=== PATIENT | male | born 1970 | race Caucasian/White ===

== ENCOUNTER 2018-03-20 00:26 | Emergency (ER) | payer SELFPAY ==
[~2018-03-20] VITALS: Ht 177.8 cm; Wt 117.9 kg
[2018-03-20 00:56] LABS: BASO # 0.1 x10^3/uL (0.0-0.2); BASO % 1 % (0-3); EOS # 0.2 x10^3/uL (0.0-0.7); EOS % 1 % (0-3); HEMATOCRIT 44.5 % (39.0-53.0); HEMOGLOBIN 15.4 g/dL (13.0-17.5); LYMPH # 2.5 x10^3/uL (1.0-4.8); LYMPH % 21 % (24-48); MEAN CORPUSCULAR HEMOGLOBIN 30 pg (25-35); MEAN CORPUSCULAR HGB CONC 35 g/dL (31-37); MEAN CORPUSCULAR VOLUME 88 fL (79-100); MONO # 1.3 x10^3/uL (0.0-1.1); MONO % 12 % (0-9); NEUT # 7.5 x10^3uL (1.8-7.7); NEUT % 65 % (31-73); PLATELET COUNT 245 x10^3/uL (140-400); RED BLOOD COUNT 5.09 x10^6/uL (4.30-5.70); RED CELL DISTRIBUTION WIDTH 13.5 % (11.5-14.5); WHITE BLOOD COUNT 11.6 x10^3/uL (4.0-11.0)
--- NOTE | 2018-03-20 01:10 | PHYS DOC ---
Past Medical History Past Medical History: High Cholesterol, Hypertension Past Surgical History: No Surgical History Alcohol Use: None Drug Use: None Adult General Chief Complaint Chief Complaint: CHEST PAIN HPI HPI Patient is a 48 year old male who presents with chest pain. Patient took a Viagra at 11:00 yesterday morning. He states he broke the pill in half and swallowed it. He has used this medication in the past but never had any problems. About 45 minutes after taking the medicine, he began to feel anxious and did have some palpitations. He had some chest pain which she describes to be a heaviness. His symptoms did last until bedtime so he decided to come to the ER. He also complains of a diffuse generalized headache that started about the same time. No focal neuro complaints. No current chest pain. He also describes a prior history of anxiety for which he was previously treated with Valium. He relates that his current symptoms are also consistent with prior episodes of anxiety. He does have known diagnosis of high blood pressure and has been prescribed hydrochlorothiazide in the past but is not currently taking this medication as he states he cannot afford it. Review of Systems Review of Systems Constitutional: Denies fever or chills Eyes: Denies change in visual acuity HENT: Denies nasal congestion or sore throat Respiratory: Denies cough or shortness of breath Cardiovascular: No additional information not addressed in HPI GI: Denies abdominal pain, nausea : Denies dysuria or hematuria Musculoskeletal: Denies back pain Integument: Denies rash Neurologic: Denies focal neuro complaints Endocrine: Denies polyuria All other systems were reviewed and found to be within normal limits, except as documented in this note. Current Medications Current Medications Current Medications Medications (Trade) Dose Ordered Sig/Hector Start Time Stop Time Status Last Admin Dose Admin Aspirin (Children'S Aspirin) 324 mg 1X ONCE 03/20/18 01:15 03/20/18 01:16 DC 03/20/18 01:49 324 MG Fentanyl Citrate (Fentanyl 2ml Vial) 50 mcg 1X ONCE 03/20/18 01:15 03/20/18 01:16 DC 03/20/18 01:50 50 MCG Lorazepam (Ativan) 0.5 mg 1X ONCE 03/20/18 01:15 03/20/18 01:16 DC 03/20/18 01:49 0.5 MG Allergies Allergies Allergies Coded Allergies Type Severity Reaction Last Updated Verified No Known Drug Allergies 12/1/13 No Physical Exam Physical Exam Constitutional: Well developed, well nourished, no acute distress, non-toxic appearance HENT: Normocephalic, atraumatic, bilateral external ears normal, oropharynx moist Eyes: PERRLA, EOMI, conjunctiva normal Neck: Normal range of motion, no tenderness Cardiovascular:Heart rate regular rhythm, no murmur Lungs & Thorax: Bilateral breath sounds clear to auscultation Abdomen: Bowel sounds normal, soft, no tenderness Skin: Warm, dry, no erythema, no rash Extremities: No edema Neurologic: Alert and oriented X 3 Psychologic: Affect normal Current Patient Data Vital Signs Vital Signs Date Time Temp Pulse Resp B/P (MAP) Pulse Ox O2 Delivery O2 Flow Rate FiO2 03/20/18 00:30 96.8 86 20 177/93 (121) 98 Room Air 96.8 Lab Values Laboratory Tests Test 03/20/18 00:41 03/20/18 00:45 White Blood Count 11.6 x10^3/uL (4.0-11.0) H Red Blood Count 5.09 x10^6/uL (4.30-5.70) Hemoglobin 15.4 g/dL (13.0-17.5) Hematocrit 44.5 % (39.0-53.0) Mean Corpuscular Volume 88 fL (79-100) Mean Corpuscular Hemoglobin 30 pg (25-35) Mean Corpuscular Hemoglobin Concent 35 g/dL (31-37) Red Cell Distribution Width 13.5 % (11.5-14.5) Platelet Count 245 x10^3/uL (140-400) Neutrophils (%) (Auto) 65 % (31-73) Lymphocytes (%) (Auto) 21 % (24-48) L Monocytes (%) (Auto) 12 % (0-9) H Eosinophils (%) (Auto) 1 % (0-3) Basophils (%) (Auto) 1 % (0-3) Neutrophils # (Auto) 7.5 x10^3uL (1.8-7.7) Lymphocytes # (Auto) 2.5 x10^3/uL (1.0-4.8) Monocytes # (Auto) 1.3 x10^3/uL (0.0-1.1) H Eosinophils # (Auto) 0.2 x10^3/uL (0.0-0.7) Basophils # (Auto) 0.1 x10^3/uL (0.0-0.2) Prothrombin Time 12.8 SEC (11.7-14.0) Prothrombin Time INR 1.0 (0.8-1.1) PTT 28 SEC (24-38) D-Dimer (Madelin) ug/mlFEU (0.00-0.50) Sodium Level 142 mmol/L (136-145) Potassium Level 4.1 mmol/L (3.5-5.1) Chloride Level 105 mmol/L (98-107) Carbon Dioxide Level 31 mmol/L (21-32) Anion Gap 6 (6-14) Blood Urea Nitrogen 11 mg/dL (8-26) Creatinine 0.9 mg/dL (0.7-1.3) Estimated GFR (Cockcroft-Gault) 89.3 Glucose Level 80 mg/dL (70-99) Calcium Level 8.6 mg/dL (8.5-10.1) Troponin I Quantitative < 0.017 ng/mL (0.000-0.055) CM-Nyx-J-Type Natriuretic Peptide 61 pg/mL (0-124) Laboratory Tests 03/20/18 00:41 Laboratory Tests 03/20/18 00:45 EKG EKG No STEMI Interpretation Time: 00:40 Radiology/Procedures Radiology/Procedures No acute findings on PCXR Course & Med Decision Making Course & Med Decision Making Pertinent Labs and Imaging studies reviewed. (See chart for details) Patient is seen and examined. No current chest pain. Standard chest pain workup is ordered. We'll give medication for headache and anxiety. 02:40: Patient currently resting quietly with complete relief of headache symptoms. He did not have chest pain during the ED course. He was given 0.5 mg of Ativan as well as a small dose of fentanyl which relieved his symptoms. He had a normal neurologic examination. Patient has no red flags on his history of present illness or physical exam. He had been having chest pain for over 12 hours prior to presentation. His troponin is not elevated. His EKG is nonacute. Plan is for discharge home. The patient is agreeable. He is provided a refill of his normal blood pressure medication prior to discharge. He is encouraged to follow-up with a primary care doctor or come back to the ER. Rakan Disclaimer Rakan Disclaimer This electronic medical record was generated, in whole or in part, using a voice recognition dictation system. Departure Departure Referrals: NO PCP (PCP) Scripts Hydrochlorothiazide (HYDROCHLOROTHIAZIDE TABLET ) 25 Mg Tablet 1 TAB PO DAILY, #30 TAB 3 Refills Prov: CONRADO WARE DO 03/20/18 Aspirin (ASPIRIN) 325 Mg Tablet 1 TAB PO TID PRN for HEADACHE, #21 TAB 0 Refills Prov: CONRADO WARE DO 03/20/18 CONRADO WARE DO Mar 20, 2018 01:10
[2018-03-20 01:11] LABS: PROTHROMBIN TIME PATIENT 12.8 SEC (11.7-14.0)
[2018-03-20] MEDS ORDERED: ASPIRIN CHEWABLE 81 MG TABLET. PO ONE (01:15)
[2018-03-20] MEDS ORDERED: fentaNYL PF VIAL 100 MCG/2 ML VIAL IV ONE (01:15)
[2018-03-20 01:17] LABS: CALCIUM 8.6 mg/dL (8.5-10.1); CREATININE 0.9 mg/dL (0.7-1.3); GFR 89.3; POTASSIUM 4.1 mmol/L (3.5-5.1)
[2018-03-20] MEDS ORDERED: ASPI325T8 PO (02:43)
[2018-03-20] MEDS ORDERED: HYDR25TA9 PO (02:43)
[2018-03-20 02:56] VITALS: BP 125/64
--- NOTE | 2018-03-20 06:12 | EKG ---
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
--- NOTE | 2018-03-20 08:29 | RAD ---
Chest radiograph 03/20/2018 12:56 AM INDICATION: Mid sternal chest pain COMPARISON: None available TECHNIQUE: Portable upright frontal view of the chest is provided. FINDINGS: The cardiomediastinal silhouette is within normal limits. There are no pleural effusions. There is no pulmonary vascular congestion. There is no pneumothorax. The lungs are clear. No significant osseous abnormality is identified. IMPRESSION: No acute cardiopulmonary process. Electronically signed by: Kira Ding MD (03/20/2018 8:25 AM) [id number]
== END 2018-03-20 03:08 | disposition home or self-care (01) ==
LOC: ER 00:26
DX: R07.89 Other chest pain (principal); R00.2 Palpitations; E78.00 Pure hypercholesterolemia, unspecified; I10 Essential (primary) hypertension
CPT/HCPCS: 36415; 71045; 80048; 83880; 84484; 85025; 85379; 85610; 85730; 93005; 96374; 96375; 99285; J2060; J3010; 99284

== ENCOUNTER 2018-06-19 08:09 | Emergency (ER) | payer SELFPAY ==
[~2018-06-19] VITALS: Ht 177.8 cm; Wt 122.5 kg
[~2018-06-19 08:09] MED LIST: ASPI325T8 PO; HYDR-2145 PO
[2018-06-19] MEDS: MORPHINE SULFATE 4 MG/ML VIAL. IV ONE ×2 (08:35→09:11)
[2018-06-19] MEDS: ONDANSETRON PF 4 MG/2 ML VIAL. IV ONE (08:35)
[2018-06-19 08:42] LABS: BASO # 0.1 x10^3/uL (0.0-0.2); BASO % 1 % (0-3); EOS # 0.1 x10^3/uL (0.0-0.7); EOS % 1 % (0-3); HEMATOCRIT 41.2 % (39.0-53.0); HEMOGLOBIN 14.1 g/dL (13.0-17.5); LYMPH # 1.3 x10^3/uL (1.0-4.8); LYMPH % 9 % (24-48); MEAN CORPUSCULAR HEMOGLOBIN 30 pg (25-35); MEAN CORPUSCULAR HGB CONC 34 g/dL (31-37); MEAN CORPUSCULAR VOLUME 88 fL (79-100); MONO # 1.2 x10^3/uL (0.0-1.1); MONO % 9 % (0-9); NEUT # 11.1 x10^3uL (1.8-7.7); NEUT % 81 % (31-73); PLATELET COUNT 201 x10^3/uL (140-400); RED CELL DISTRIBUTION WIDTH 15.7 % (11.5-14.5); WHITE BLOOD COUNT 13.8 x10^3/uL (4.0-11.0)
[2018-06-19 08:52] LABS: CALCIUM 8.3 mg/dL (8.5-10.1); CREATININE 0.8 mg/dL (0.7-1.3); GFR 102.3; POTASSIUM 4.2 mmol/L (3.5-5.1)
--- NOTE | 2018-06-19 08:54 | EKG ---
[facility] [address] [place] [address] Test Date: 2018-06-19 Test Time: 08:50:27 Pat Name: SHIRA CHEUNG Department: Room: Gender: Care Nurse Rn: GLENIS : 1970 Requested By: MAYNOR RAMIREZ Order Number: [id number] Reading MD: Measurements Intervals [place] Rate: 88 P: 38 AK: 136 QRS: 9 QRSD: 90 T: 29 QT: 348 QTc: 424 Interpretive Statements SINUS RHYTHM NORMAL ECG RI6.01 No previous ECG available for comparison
[2018-06-19 08:57] LABS: ALBUMIN 3.4 g/dL (3.4-5.0); ALBUMIN/GLOBULIN RATIO 0.9 (1.0-1.7); TOTAL BILIRUBIN 0.5 mg/dL (0.2-1.0); TOTAL PROTEIN 7.4 g/dL (6.4-8.2)
[2018-06-19] MEDS: IOHEXOL 300 MG/ML 100ML VIAL. IV ONE (09:22)
[2018-06-19] MEDS ORDERED: CONTRAST GIVEN. MC PRN (09:30)
--- NOTE | 2018-06-19 09:33 | PHYS DOC ---
Past Medical History Past Medical History: Diverticulitis, High Cholesterol, Hypertension Past Surgical History: No Surgical History Additional Information: 1/2 PACK/DAY Alcohol Use: Rarely Drug Use: None Adult General Chief Complaint Chief Complaint: GI PROBLEM HPI HPI Patient is a 48 year old m who presents to the ED for evaluation of abdominal pain. Patient reports progressive upper abdominal pain since last night, pain is constant, 5-6 out of 10, no aggravating or alleviating factors. No nausea no vomiting no diarrhea no constipation. Patient reports history of diverticulitis with perforation and expressed concern multiple times of recurrence. No fever. Review of Systems Review of Systems Constitutional: Denies fever or chills [] Eyes: Denies change in visual acuity, redness, or eye pain [] HENT: Denies nasal congestion or sore throat [] Respiratory: Denies cough or shortness of breath [] Cardiovascular: No additional information not addressed in HPI [] GI: abdominal pain present. no nausea, no vomiting, no diarrhea : Denies dysuria or hematuria [] Musculoskeletal: Denies back pain or joint pain [] Integument: Denies rash or skin lesions [] Neurologic: Denies headache, focal weakness or sensory changes [] Endocrine: Denies polyuria or polydipsia [] All other systems were reviewed and found to be within normal limits, except as documented in this note. Current Medications Current Medications Current Medications Medications (Trade) Dose Ordered Sig/Hector Start Time Stop Time Status Last Admin Dose Admin Ciprofloxacin (Cipro) 500 mg 1X ONCE 06/19/18 11:00 06/19/18 11:02 DC 06/19/18 11:12 500 MG Info (CONTRAST GIVEN -- Rx MONITORING) 1 each PRN DAILY PRN 06/19/18 09:30 06/19/18 11:45 DC Iohexol (Omnipaque 300 Mg/ml) 75 ml 1X ONCE 06/19/18 09:15 06/19/18 09:17 DC 06/19/18 09:22 75 ML Metronidazole (Flagyl) 500 mg 1X ONCE 06/19/18 11:00 06/19/18 11:02 DC 06/19/18 11:11 500 MG Morphine Sulfate (Morphine Sulfate) 4 mg 1X ONCE 06/19/18 09:15 06/19/18 09:16 DC 06/19/18 09:11 4 MG Ondansetron HCl (Zofran) 8 mg 1X ONCE 06/19/18 08:30 06/19/18 08:31 DC 06/19/18 08:35 8 MG Allergies Allergies Allergies Coded Allergies Type Severity Reaction Last Updated Verified No Known Drug Allergies 06/10/13 No Physical Exam Physical Exam Constitutional: obese, moderate distress HENT: Normocephalic, atraumatic, Eyes: PERRLA, EOMI, conjunctiva normal, no discharge. [] Neck: Normal range of motion, no tenderness, supple, no stridor. [] Cardiovascular:Heart rate regular rhythm, no murmur [] Lungs & Thorax: Bilateral breath sounds clear to auscultation [] Abdomen: Bowel sounds normal, soft, mild to moderate tenderness to LUE/ epigastric region, no masses, no pulsatile masses. [] Skin: Warm, dry, no erythema, no rash. [] Back: No tenderness, no CVA tenderness. [] Extremities: No tenderness, no edema. [] Neurologic: Alert and oriented X 3, no focal deficits noted. [] Psychologic: Affect normal, judgement normal, mood normal. [] Current Patient Data Vital Signs Vital Signs Date Time Temp Pulse Resp B/P (MAP) Pulse Ox O2 Delivery O2 Flow Rate FiO2 06/19/18 11:15 88 20 152/91 (111) 96 Room Air 06/19/18 08:15 98.7 98.7 Lab Values Laboratory Tests Test 06/19/18 08:25 White Blood Count 13.8 x10^3/uL (4.0-11.0) H Red Blood Count 4.70 x10^6/uL (4.30-5.70) Hemoglobin 14.1 g/dL (13.0-17.5) Hematocrit 41.2 % (39.0-53.0) Mean Corpuscular Volume 88 fL (79-100) Mean Corpuscular Hemoglobin 30 pg (25-35) Mean Corpuscular Hemoglobin Concent 34 g/dL (31-37) Red Cell Distribution Width 15.7 % (11.5-14.5) H Platelet Count 201 x10^3/uL (140-400) Neutrophils (%) (Auto) 81 % (31-73) H Lymphocytes (%) (Auto) 9 % (24-48) L Monocytes (%) (Auto) 9 % (0-9) Eosinophils (%) (Auto) 1 % (0-3) Basophils (%) (Auto) 1 % (0-3) Neutrophils # (Auto) 11.1 x10^3uL (1.8-7.7) H Lymphocytes # (Auto) 1.3 x10^3/uL (1.0-4.8) Monocytes # (Auto) 1.2 x10^3/uL (0.0-1.1) H Eosinophils # (Auto) 0.1 x10^3/uL (0.0-0.7) Basophils # (Auto) 0.1 x10^3/uL (0.0-0.2) Sodium Level 136 mmol/L (136-145) Potassium Level 4.2 mmol/L (3.5-5.1) Chloride Level 101 mmol/L (98-107) Carbon Dioxide Level 30 mmol/L (21-32) Anion Gap 5 (6-14) L Blood Urea Nitrogen 8 mg/dL (8-26) Creatinine 0.8 mg/dL (0.7-1.3) Estimated GFR (Cockcroft-Gault) 102.3 BUN/Creatinine Ratio 10 (6-20) Glucose Level 99 mg/dL (70-99) Calcium Level 8.3 mg/dL (8.5-10.1) L Total Bilirubin 0.5 mg/dL (0.2-1.0) Aspartate Amino Transferase (AST) 13 U/L (15-37) L Alanine Aminotransferase (ALT) 20 U/L (16-63) Alkaline Phosphatase 82 U/L (46-116) Troponin I Quantitative < 0.017 ng/mL (0.000-0.055) Total Protein 7.4 g/dL (6.4-8.2) Albumin 3.4 g/dL (3.4-5.0) Albumin/Globulin Ratio 0.9 (1.0-1.7) L Lipase 595 U/L (73-393) H Laboratory Tests 06/19/18 08:25 Laboratory Tests 06/19/18 08:25 EKG EKG [] Radiology/Procedures Radiology/Procedures CT ABD/Pelvis IMPRESSION: 1. Diverticulosis. There is some focal wall thickening of the sigmoid colon. Stranding within the pericolonic fat, also dissecting along the central mesenteric fat. Findings are compatible with acute colitis and may represent diverticulitis. However, note that the fatty stranding extends superior to the sigmoid colon abnormality, along the central mesenteric stalk. Within the central mesenteric fatty stranding is an ill-defined and somewhat stellate area of soft tissue density measuring about 15 mm. This could represent an area of infectious or phlegmonous material, versus a small central mesenteric mass, such as carcinoid tumor, or more chronic scarring. Recommend short-term follow-up imaging after acute treatment. 2. Dense material within the appendix, may represent barium from prior study or dense appendicoliths. However, no evidence of acute appendicitis. 3. Mild linear/groundglass opacity in both lung bases, most likely atelectasis or fibrosis. 4. Small subcentimeter hypodense lesions both kidneys are too small to characterize. There is slightly larger lesion in the left kidney measures 16 mm and 40 Hounsfield units, greater than a simple cyst. This could represent a hemorrhagic cyst but other etiologies are not excludable. Renal ultrasound on a nonemergent basis could further evaluate. 5. Tiny nonobstructive left lower pole renal calculi. Course & Med Decision Making Course & Med Decision Making Pertinent Labs and Imaging studies reviewed. (See chart for details) 12:11 patient significantly improved after pain medication. Lipase little bit elevated but does not meet 3 times about normal limits reference range for criteria for pancreatitis. Patient does not have a history of pancreatitis. Patient does not abuse alcohol. CT of the abdomen more consistent with colitis which patient does have a history of. Offered hospitalization versus trial of outpatient management. Patient requesting trial of outpatient management. Will place on Cipro and Flagyl. In the ER patient given first dose of antibiotics and tolerated multiple glasses of water. Patient requesting discharge. Discussed elevated lipase and potential progression of symptoms. Discussed CT findings and need for close outpatient follow-up with PCP. Also discussed need for outpatient follow-up imaging. ER return precautions given. Patient verbalized understanding. All questions answered. Dragon Disclaimer Dianeon Disclaimer This electronic medical record was generated, in whole or in part, using a voice recognition dictation system. Departure Departure Impression: Primary Impression: Colitis Disposition: 01 HOME, SELF-CARE Condition: IMPROVED Referrals: NO PCP (PCP) Patient Instructions: Colitis Additional Instructions: Thank you for coming to [facility]. Please repeat the attached handouts. Please follow-up with your primary care physician. Return to the ER if your symptoms worsen or you have any other concerns. Take the entire course of antibiotics as prescribed. Drink plenty of fluids to stay hydrated. Follow- up with your primary physician in the next 2-3 days. Scripts Metronidazole (FLAGYL) 500 Mg Tablet 500 MG PO TID for 7 Days, #21 TAB Prov: MAYNOR RAMIREZ DO 06/19/18 Ciprofloxacin Hcl (CIPROFLOXACIN HCL) 500 Mg Tablet 1 TAB PO BID, #14 TAB Prov: MAYNOR RAMIREZ DO 06/19/18 Hydrocodone/Apap 5-325 (NORCO 5-325 TABLET) 1 Each Tablet 1-2 EACH PO PRN Q6HRS PRN for PAIN MDD 4, #15 as needed for pain Prov: MAYNOR RAMIREZ DO 06/19/18 MAYNOR RAMIREZ DO Jun 19, 2018 09:33
--- NOTE | 2018-06-19 10:06 | RAD ---
CT ABD PELV W/ IV CONTRST ONLY Indication: UPPER MID ABDOMEN PAIN X 1 DAY.
IV OMNI 300 75 MLS Exposure: One or more of the following individualized dose reduction techniques were utilized for this examination: 1. Automated exposure control 2. Adjustment of the mA and/or kV according to patient size 3. Use of iterative reconstruction technique. Comparison: None are available. Contrast: Intravenous contrast was given. No oral contrast per request. Technique: Standard axial imaging is performed with multiplanar reformatted images. Urgent interpretation was requested. FINDINGS: Lower thorax: Mild linear and groundglass opacity in both lung bases, could represent mild atelectasis or fibrosis. No evidence of dense airspace consolidation. Liver: Unremarkable Spleen: Unremarkable Pancreas: Unremarkable Adrenals: No evidence of mass. Kidneys: Small hypodense lesions throughout both kidneys, most of which measure less than a centimeter and cannot be characterized. Largest measures about 16 mm and 40 Hounsfield units, greater than a simple cyst. Urinary tracts: Tiny nonobstructive left lower pole renal calculus. No evidence of hydronephrosis. Gallbladder: No calcified stone Lymph nodes: No significant enlargement Vessels: Aorta is nonaneurysmal. GI tract: Small hiatal hernia. Colonic diverticulosis. Mild retained stool in the colon, moderate in the right colon. Mild wall thickening of the sigmoid colon. There is some stranding in the fat around this region sigmoid colon and extending along the central mesenteric stalk. Several small punctate densities in this area, could represent surgical clips or calcifications. There appears to be some mild stellate density here, may represents fibrosis or scarring. Small mesenteric mass difficult to exclude, measuring about 15 mm. The appendix contains gas and limited without evidence of wall thickening or distention. There is some very hyperdensity material within the proximal appendix, could represent an elongated appendicolith or appendicoliths, versus some retained barium from a prior radiology study. Reproductive organs: Mild central prostate calcifications. Urinary bladder: Unremarkable. Peritoneum: No evidence of pneumoperitoneum. No free fluid. Abdominal wall:Unremarkable Spine: Mild degenerative spondylosis. Bones: No destructive process identified. External Soft Tissue: No acute findings. IMPRESSION: 1. Diverticulosis. There is some focal wall thickening of the sigmoid colon. Stranding within the pericolonic fat, also dissecting along the central mesenteric fat. Findings are compatible with acute colitis and may represent diverticulitis. However, note that the fatty stranding extends superior to the sigmoid colon abnormality, along the central mesenteric stalk. Within the central mesenteric fatty stranding is an ill-defined and somewhat stellate area of soft tissue density measuring about 15 mm. This could represent an area of infectious or phlegmonous material, versus a small central mesenteric mass, such as carcinoid tumor, or more chronic scarring. Recommend short-term follow-up imaging after acute treatment. 2. Dense material within the appendix, may represent barium from prior study or dense appendicoliths. However, no evidence of acute appendicitis. 3. Mild linear/groundglass opacity in both lung bases, most likely atelectasis or fibrosis. 4. Small subcentimeter hypodense lesions both kidneys are too small to characterize. There is slightly larger lesion in the left kidney measures 16 mm and 40 Hounsfield units, greater than a simple cyst. This could represent a hemorrhagic cyst but other etiologies are not excludable. Renal ultrasound on a nonemergent basis could further evaluate. 5. Tiny nonobstructive left lower pole renal calculi. Electronically signed by: Bran Lucero MD (06/19/2018 10:02 AM) [id number]
[2018-06-19] MEDS: metroNIDAZOLE 500 MG TABLET PO ONE (11:11)
[2018-06-19] MEDS: CIPROFLOXACIN HCL 250 MG TABLET. PO ONE (11:12)
[2018-06-19 11:15] VITALS: BP 152/91
[2018-06-19] MEDS ORDERED: CIPR500T PO (11:36)
[2018-06-19] MEDS ORDERED: HYDR-3164 PO (11:36)
[2018-06-19] MEDS ORDERED: METR500T PO (11:36)
== END 2018-06-19 11:40 | disposition home or self-care (01) ==
LOC: ER 08:09
DX: K52.89 Other specified noninfective gastroenteritis and colitis (principal); E78.00 Pure hypercholesterolemia, unspecified; I10 Essential (primary) hypertension; F17.200 Nicotine dependence, unspecified, uncomplicated; E66.9 Obesity, unspecified; Z68.38 Body mass index [BMI] 38.0-38.9, adult
CPT/HCPCS: 36415; 74177; 80053; 83690; 84484; 85025; 93005; 96374; 96375; 96376; 99284; J2270; J2405; Q9967

== ENCOUNTER 2018-07-27 09:52 | Inpatient (IN) | payer SELFPAY ==
[~2018-07-27] VITALS: Ht 177.8 cm; Wt 117.9 kg
[~2018-07-27 09:52] MED LIST changes: +CIPR500T PO; +HYDR-3164 PO; +METR500T PO
[2018-07-27] MEDS ORDERED: IV NORMAL SALINE 1000ML BAG 1,000 ML IV ONE ×2 (10:15→12:45)
[2018-07-27] MEDS ORDERED: MORPHINE SULFATE 10 MG/ML VIAL. IV ONE (10:15)
[2018-07-27] MEDS ORDERED: FAMOTIDINE 20 MG/2 ML VIAL IVP ONE (10:15)
--- NOTE | 2018-07-27 10:18 | PHYS DOC ---
Past Medical History Past Medical History: Diverticulitis, High Cholesterol, Hypertension Past Surgical History: No Surgical History Alcohol Use: Rarely Drug Use: None Adult General Chief Complaint Chief Complaint: ABDOMINAL PAIN HPI HPI Patient is a 48 year old male with history of high cholesterol, hypertension, diverticulitis, who presents today complaining of moderate left lower quadrant abdominal pain that began this morning. 2 days ago. Patient is also complaining of diarrhea, nausea and vomiting. Patient denies any hematemesis or melena. Denies any fever. Patient states he has not taken anything for the symptoms Review of Systems Review of Systems Constitutional: Denies fever or chills [] Eyes: Denies change in visual acuity, redness, or eye pain [] HENT: Denies nasal congestion or sore throat [] Respiratory: Denies cough or shortness of breath [] Cardiovascular: No additional information not addressed in HPI [] GI: Reports abdominal pain left lower quadrant, nausea, vomiting, diarrhea, denies any hematemesis or melena : Denies dysuria or hematuria [] Musculoskeletal: Denies back pain or joint pain [] Integument: Denies rash or skin lesions [] Neurologic: Denies headache, focal weakness or sensory changes [] All other systems were reviewed and found to be within normal limits, except as documented in this note. Current Medications Current Medications Current Medications Medications (Trade) Dose Ordered Sig/Hector Start Time Stop Time Status Last Admin Dose Admin Famotidine (Pepcid Vial) 20 mg 1X ONCE 07/27/18 10:15 07/27/18 10:16 DC 07/27/18 10:46 20 MG Info (CONTRAST GIVEN -- Rx MONITORING) 1 each PRN DAILY PRN 07/27/18 10:30 07/29/18 10:29 Iohexol (Omnipaque 300 Mg/ml) 75 ml 1X ONCE 07/27/18 10:30 07/27/18 10:31 DC 07/27/18 11:33 75 ML Morphine Sulfate (Morphine Sulfate) 5 mg 1X ONCE 07/27/18 10:15 07/27/18 10:16 DC 07/27/18 10:46 5 MG Sodium Chloride 1,000 ml @ 1,000 mls/hr 1X ONCE 07/27/18 10:15 07/27/18 11:14 DC 07/27/18 10:45 1,000 MLS/HR Allergies Allergies Allergies Coded Allergies Type Severity Reaction Last Updated Verified No Known Drug Allergies 06/10/13 No Physical Exam Physical Exam Constitutional: Well developed, well nourished, no acute distress, non-toxic appearance. [] HENT: Normocephalic, atraumatic, bilateral external ears normal, oropharynx moist, no oral exudates, nose normal. [] Eyes: PERRLA, EOMI, conjunctiva normal, no discharge. [] Neck: Normal range of motion, no tenderness, supple, no stridor. [] Cardiovascular:Heart rate regular rhythm, no murmur [] Lungs & Thorax: Bilateral breath sounds clear to auscultation [] Abdomen: Bowel sounds normal, soft, no right upper quadrant or right lower quadrant tenderness, mild left lower quadrant tenderness, no masses, no pulsatile masses. [] Skin: Warm, dry, no erythema, no rash. [] Back: No tenderness, no CVA tenderness. [] Extremities: No tenderness, no cyanosis, no clubbing, ROM intact, no edema. [] Neurologic: Alert and oriented X 3, normal motor function, normal sensory function, no focal deficits noted. [] Psychologic: Affect normal, judgement normal, mood normal. [] Current Patient Data Vital Signs Vital Signs Date Time Temp Pulse Resp B/P (MAP) Pulse Ox O2 Delivery O2 Flow Rate FiO2 07/27/18 10:05 97.5 77 18 142/87 (105) 98 Room Air 97.5 Lab Values Laboratory Tests Test 07/27/18 10:08 07/27/18 10:25 Urine Collection Type Unknown Urine Color Yellow Urine Clarity Clear Urine pH 5.5 Urine Specific [place] 1.015 Urine Protein Negative mg/dL (NEG-TRACE) Urine Glucose (UA) Negative mg/dL (NEG) Urine Ketones (Stick) Negative mg/dL (NEG) Urine Blood Trace (NEG) Urine Nitrite Negative (NEG) Urine Bilirubin Negative (NEG) Urine Urobilinogen Dipstick 0.2 mg/dL (0.2 mg/dL) Urine Leukocyte Esterase Negative (NEG) Urine RBC 0 /HPF (0-2) Urine WBC 0 /HPF (0-4) Urine Squamous Epithelial Cells Few /LPF Urine Bacteria 0 /HPF (0-FEW) Urine Opiates Screen Neg (NEG) Urine Methadone Screen Neg (NEG) Urine Barbiturates Neg (NEG) Urine Phencyclidine Screen Neg (NEG) Urine Amphetamine/Methamphetamine Neg (NEG) Urine Benzodiazepines Screen Pos (NEG) Urine Cocaine Screen Neg (NEG) Urine Cannabinoids Screen Neg (NEG) Urine Ethyl Alcohol Neg (NEG) White Blood Count 10.4 x10^3/uL (4.0-11.0) Red Blood Count 4.99 x10^6/uL (4.30-5.70) Hemoglobin 15.0 g/dL (13.0-17.5) Hematocrit 43.6 % (39.0-53.0) Mean Corpuscular Volume 87 fL (79-100) Mean Corpuscular Hemoglobin 30 pg (25-35) Mean Corpuscular Hemoglobin Concent 34 g/dL (31-37) Red Cell Distribution Width 15.1 % (11.5-14.5) H Platelet Count 261 x10^3/uL (140-400) Neutrophils (%) (Auto) 68 % (31-73) Lymphocytes (%) (Auto) 21 % (24-48) L Monocytes (%) (Auto) 8 % (0-9) Eosinophils (%) (Auto) 2 % (0-3) Basophils (%) (Auto) 1 % (0-3) Neutrophils # (Auto) 7.1 x10^3uL (1.8-7.7) Lymphocytes # (Auto) 2.1 x10^3/uL (1.0-4.8) Monocytes # (Auto) 0.9 x10^3/uL (0.0-1.1) Eosinophils # (Auto) 0.2 x10^3/uL (0.0-0.7) Basophils # (Auto) 0.1 x10^3/uL (0.0-0.2) Sodium Level 136 mmol/L (136-145) Potassium Level 4.0 mmol/L (3.5-5.1) Chloride Level 101 mmol/L (98-107) Carbon Dioxide Level 30 mmol/L (21-32) Anion Gap 5 (6-14) L Blood Urea Nitrogen 13 mg/dL (8-26) Creatinine 0.8 mg/dL (0.7-1.3) Estimated GFR (Cockcroft-Gault) 102.3 BUN/Creatinine Ratio 16 (6-20) Glucose Level 82 mg/dL (70-99) Calcium Level 9.1 mg/dL (8.5-10.1) Total Bilirubin 0.4 mg/dL (0.2-1.0) Aspartate Amino Transferase (AST) 13 U/L (15-37) L Alanine Aminotransferase (ALT) 18 U/L (16-63) Alkaline Phosphatase 82 U/L (46-116) Total Protein 7.5 g/dL (6.4-8.2) Albumin 3.1 g/dL (3.4-5.0) L Albumin/Globulin Ratio 0.7 (1.0-1.7) L Lipase 137 U/L (73-393) Ethyl Alcohol Level < 10 mg/dL (0-10) Laboratory Tests 07/27/18 10:25 Laboratory Tests 07/27/18 10:25 EKG EKG [] Radiology/Procedures Radiology/Procedures []PROCEDURE: CT ABD PELV W/ IV CONTRST ONLY Examination: CT of the abdomen pelvis with IV contrast HISTORY: History of left lower quadrant abdominal pain COMPARISON: 06/19/2018 TECHNIQUE: Axial CT images of the abdomen pelvis were performed. Coronal and sagittal reformats are performed Exposure: One or more of the following individualized dose reduction techniques were utilized for this examination: 1. Automated exposure control 2. Adjustment of the mA and/or kV according to patient size 3. Use of iterative reconstruction technique FINDINGS: Minimal bibasilar lung atelectasis. No evidence of free air identified in the abdomen. The visualized liver, spleen, adrenals grossly appears unremarkable. The gallbladder is mildly distended. The stomach is minimally distended. The visualized pancreas grossly appears unremarkable. The small bowel is nondilated. The appendix is normal. Feces and gas noted in the colon. Multiple sigmoid colon diverticulosis identified. There is mild to moderate fat stranding identified about the proximal sigmoid colon likely acute diverticulitis. There is mild thickened appearance of the wall of the proximal sigmoid colon at the site of inflammation. Urinary bladder is mildly distended. Bilateral kidneys enhance symmetrically. Punctate 3 mm intrarenal collecting system calculus identified in the left kidney. Mild degenerative changes lumbar spine. Circumaortic left renal vein. IMPRESSION: 1. Mild inflammatory fat stranding identified in the proximal sigmoid colon likely mild acute diverticulitis. There is mild mucosal thickening identified in the proximal sigmoid colon at the site of inflammation probably due to underlying inflammation or neoplasm. Follow-up colonoscopy recommended after the acute episode is resolved. 2. Punctate 3 mm intrarenal collecting system calculus left kidney. Electronically signed by: Ramakrishna Hoskins MD (07/27/2018 12:19 PM) [facility] DICTATED and SIGNED BY: RAMAKRISHNA HOSKINS MD DATE: 07/27/18 1210 Course & Med Decision Making Course & Med Decision Making Pertinent Labs and Imaging studies reviewed. (See chart for details) This is a 48-year-old male patient presenting to the ED today with complaints of left lower quadrant abdominal pain, nausea vomiting and diarrhea for 2 days. History of diverticulitis. CBC with a normal WBC, CMP with no acute findings, urine analysis is negative for infection, CT of the abdomen and pelvic was noted for acute diverticulitis. Flagyl and Cipro ordered. 12:[address] Hayes who accepted patient for admission 12:34 Consulted with Chantelle who will follow-up with the patient for GI Staff Physician Addendum: I was working in the ER during the course of this patient's visit. I was available for consultation as needed, but I was not directly involved in the care of this patient. Dragon Disclaimer Dragon Disclaimer This electronic medical record was generated, in whole or in part, using a voice recognition dictation system. Departure Departure Impression: Primary Impression: Diverticulitis Disposition: 09 ADMITTED INPATIENT Condition: STABLE Referrals: NO PCP (PCP) CARLOS BOSS APRN Jul 27, 2018 10:18 VALERIE PELLETIER MD Jul 27, 2018 15:02
[2018-07-27 10:29] LABS: BILIRUBIN,URINE NEGATIVE (NEG); CLARITY,URINE CLEAR; COLOR,URINE YELLOW; NITRITE,URINE NEGATIVE (NEG); PH,URINE 5.5; PROTEIN,URINE NEGATIVE (NEG-TRACE); UROBILINOGEN,URINE 0.2 mg/dL (0.2 mg/dL)
[2018-07-27] MEDS ORDERED: CONTRAST GIVEN. MC PRN (10:30)
[2018-07-27] MEDS ORDERED: IOHEXOL 300 MG/ML 100ML VIAL. IV ONE (10:30)
[2018-07-27 10:36] LABS: BARBITURATES NEG (NEG); BENZODIAZEPINES POS (NEG); CANNABINOIDS NEG (NEG); COCAINE NEG (NEG); METHADONE NEG (NEG); OPIATES NEG (NEG); PHENCYCLIDINE NEG (NEG)
[2018-07-27 10:39] LABS: AMPHETAMINE/METHAMPHETAMINE NEG (NEG)
[2018-07-27 10:56] LABS: BACTERIA,URINE 0 /HPF (0-FEW); RBC,URINE 0 /HPF (0-2); SQUAMOUS EPITHELIAL CELL,UR FEW /LPF; WBC,URINE 0 /HPF (0-4)
[2018-07-27 11:08] LABS: BASO # 0.1 x10^3/uL (0.0-0.2); BASO % 1 % (0-3); EOS # 0.2 x10^3/uL (0.0-0.7); EOS % 2 % (0-3); HEMATOCRIT 43.6 % (39.0-53.0); LYMPH # 2.1 x10^3/uL (1.0-4.8); LYMPH % 21 % (24-48); MEAN CORPUSCULAR HEMOGLOBIN 30 pg (25-35); MEAN CORPUSCULAR HGB CONC 34 g/dL (31-37); MEAN CORPUSCULAR VOLUME 87 fL (79-100); MONO # 0.9 x10^3/uL (0.0-1.1); MONO % 8 % (0-9); NEUT # 7.1 x10^3uL (1.8-7.7); NEUT % 68 % (31-73); PLATELET COUNT 261 x10^3/uL (140-400); RED BLOOD COUNT 4.99 x10^6/uL (4.30-5.70); RED CELL DISTRIBUTION WIDTH 15.1 % (11.5-14.5); WHITE BLOOD COUNT 10.4 x10^3/uL (4.0-11.0)
[2018-07-27 11:23] LABS: ALBUMIN 3.1 g/dL (3.4-5.0); ALBUMIN/GLOBULIN RATIO 0.7 (1.0-1.7); CALCIUM 9.1 mg/dL (8.5-10.1); CREATININE 0.8 mg/dL (0.7-1.3); GFR 102.3; TOTAL BILIRUBIN 0.4 mg/dL (0.2-1.0); TOTAL PROTEIN 7.5 g/dL (6.4-8.2)
--- NOTE | 2018-07-27 12:23 | RAD ---
Examination: CT of the abdomen pelvis with IV contrast HISTORY: History of left lower quadrant abdominal pain COMPARISON: 06/19/2018 TECHNIQUE: Axial CT images of the abdomen pelvis were performed. Coronal and sagittal reformats are performed Exposure: One or more of the following individualized dose reduction techniques were utilized for this examination: 1. Automated exposure control 2. Adjustment of the mA and/or kV according to patient size 3. Use of iterative reconstruction technique FINDINGS: Minimal bibasilar lung atelectasis. No evidence of free air identified in the abdomen. The visualized liver, spleen, adrenals grossly appears unremarkable. The gallbladder is mildly distended. The stomach is minimally distended. The visualized pancreas grossly appears unremarkable. The small bowel is nondilated. The appendix is normal. Feces and gas noted in the colon. Multiple sigmoid colon diverticulosis identified. There is mild to moderate fat stranding identified about the proximal sigmoid colon likely acute diverticulitis. There is mild thickened appearance of the wall of the proximal sigmoid colon at the site of inflammation. Urinary bladder is mildly distended. Bilateral kidneys enhance symmetrically. Punctate 3 mm intrarenal collecting system calculus identified in the left kidney. Mild degenerative changes lumbar spine. Circumaortic left renal vein. IMPRESSION: 1. Mild inflammatory fat stranding identified in the proximal sigmoid colon likely mild acute diverticulitis. There is mild mucosal thickening identified in the proximal sigmoid colon at the site of inflammation probably due to underlying inflammation or neoplasm. Follow-up colonoscopy recommended after the acute episode is resolved. 2. Punctate 3 mm intrarenal collecting system calculus left kidney. Electronically signed by: Ramakrishna Hoskins MD (07/27/2018 12:19 PM) [facility]
[2018-07-27] MEDS ORDERED: CIPROFLOXACIN 400MG PREMIX 200 ML IV ONE (12:45)
[2018-07-27] MEDS ORDERED: ONDANSETRON PF 4 MG/2 ML VIAL. IV PRN (12:45)
--- NOTE | 2018-07-27 13:07 | PDOC2 ---
GI CONSULT Reason For Consult: Diverticulitis HPI: HPI: 48 y/o male who was seen in the ER in 06/2018 for abd pain. He says pain was in the LUQ and he was told he had a gallbladder problem. CT A/P showed diverticulosis w/ focal wall thickening of sigmoid colon, stranding within pericolic fact and dissecting along central mesenteric fat - within this is an ill-defined and somewhat stellate area of soft tissue (15mm) possibly representing infectious/phlegmonous material vs small central mesenteric mass. Discharged to home w/ Cipro and Flagyl and pain resolved. He does have a h/o diverticulitis in either 2017 or 2018 @ [facility]. Says he needed IV antibiotics and talked with a surgeon about possibly needing a part of his colon removed. He is waiting for his [employer] to kick in before pursuing this. In the meantime, he came back to the ER today w/ LLQ pain x 2 days. Pain is constant and stabbing, associated w/ nausea. On this occasion, CT showed mild inflammatory fat stranding in the proximal sigmoid colon (likely mild acute diverticulitis) with mild mucosal thickening in proximal sigmoid colon. Started on IV Cipro and Flagyl. He denies reflux/heartburn, dysphagia, vomiting, hematemesis, hematochezia, melena, constipation, weight loss, or change in appetite. Occasional diarrhea. No previous EGD. Had a colonoscopy @ [facility] 3-4 years ago, recalls no significant findings. No liver or pancreas history. Has been taking Tylenol and ibuprofen for a couple days. PMH: PMH: HTN, HLD, ED, nephrolithiasis, diverticulosis Social History: Smoke: <1 pack per day ALCOHOL: rare Drugs: None ROS: GEN: Denies fevers, chills, sweats HEENT: Denies blurred vision, sore throat CV: Denies chest pain RESP: Denies shortness of air, cough GI: Per HPI : Denies hematuria, dysuria ENDO: Denies weight changes NEURO: Denies confusion, dizziness MSK: Denies weakness, joint pain/swelling SKIN: Denies jaundice, pruritus Vitals: Vitals: Vital Signs Date Time Temp Pulse Resp B/P (MAP) Pulse Ox O2 Delivery O2 Flow Rate FiO2 07/27/18 10:05 97.5 77 18 142/87 (105) 98 Room Air 97.5 Labs: Labs: Laboratory Tests Test 07/27/18 10:08 07/27/18 10:25 Urine Collection Type Unknown Urine Color Yellow Urine Clarity Clear Urine pH 5.5 Urine Specific [place] 1.015 Urine Protein Negative mg/dL (NEG-TRACE) Urine Glucose (UA) Negative mg/dL (NEG) Urine Ketones (Stick) Negative mg/dL (NEG) Urine Blood Trace (NEG) Urine Nitrite Negative (NEG) Urine Bilirubin Negative (NEG) Urine Urobilinogen Dipstick 0.2 mg/dL (0.2 mg/dL) Urine Leukocyte Esterase Negative (NEG) Urine RBC 0 /HPF (0-2) Urine WBC 0 /HPF (0-4) Urine Squamous Epithelial Cells Few /LPF Urine Bacteria 0 /HPF (0-FEW) Urine Opiates Screen Neg (NEG) Urine Methadone Screen Neg (NEG) Urine Barbiturates Neg (NEG) Urine Phencyclidine Screen Neg (NEG) Urine Amphetamine/Methamphetamine Neg (NEG) Urine Benzodiazepines Screen Pos (NEG) Urine Cocaine Screen Neg (NEG) Urine Cannabinoids Screen Neg (NEG) Urine Ethyl Alcohol Neg (NEG) White Blood Count 10.4 x10^3/uL (4.0-11.0) Red Blood Count 4.99 x10^6/uL (4.30-5.70) Hemoglobin 15.0 g/dL (13.0-17.5) Hematocrit 43.6 % (39.0-53.0) Mean Corpuscular Volume 87 fL (79-100) Mean Corpuscular Hemoglobin 30 pg (25-35) Mean Corpuscular Hemoglobin Concent 34 g/dL (31-37) Red Cell Distribution Width 15.1 % (11.5-14.5) Platelet Count 261 x10^3/uL (140-400) Neutrophils (%) (Auto) 68 % (31-73) Lymphocytes (%) (Auto) 21 % (24-48) Monocytes (%) (Auto) 8 % (0-9) Eosinophils (%) (Auto) 2 % (0-3) Basophils (%) (Auto) 1 % (0-3) Neutrophils # (Auto) 7.1 x10^3uL (1.8-7.7) Lymphocytes # (Auto) 2.1 x10^3/uL (1.0-4.8) Monocytes # (Auto) 0.9 x10^3/uL (0.0-1.1) Eosinophils # (Auto) 0.2 x10^3/uL (0.0-0.7) Basophils # (Auto) 0.1 x10^3/uL (0.0-0.2) Sodium Level 136 mmol/L (136-145) Potassium Level 4.0 mmol/L (3.5-5.1) Chloride Level 101 mmol/L (98-107) Carbon Dioxide Level 30 mmol/L (21-32) Anion Gap 5 (6-14) Blood Urea Nitrogen 13 mg/dL (8-26) Creatinine 0.8 mg/dL (0.7-1.3) Estimated GFR (Cockcroft-Gault) 102.3 BUN/Creatinine Ratio 16 (6-20) Glucose Level 82 mg/dL (70-99) Calcium Level 9.1 mg/dL (8.5-10.1) Total Bilirubin 0.4 mg/dL (0.2-1.0) Aspartate Amino Transf (AST/SGOT) 13 U/L (15-37) Alanine Aminotransferase (ALT/SGPT) 18 U/L (16-63) Alkaline Phosphatase 82 U/L (46-116) Total Protein 7.5 g/dL (6.4-8.2) Albumin 3.1 g/dL (3.4-5.0) Albumin/Globulin Ratio 0.7 (1.0-1.7) Lipase 137 U/L (73-393) Ethyl Alcohol Level < 10 mg/dL (0-10) Allergies: Coded Allergies: No Known Drug Allergies (Unverified , 06/10/13) Medications: Current Medications Medications (Trade) Dose Ordered Sig/Hector Route PRN Reason Start Time Stop Time Status Last Admin Dose Admin Morphine Sulfate (Morphine Sulfate) 5 mg 1X ONCE IV 07/27/18 10:15 07/27/18 10:16 DC 07/27/18 10:46 Sodium Chloride 1,000 ml @ 1,000 mls/hr 1X ONCE IV 07/27/18 10:15 07/27/18 11:14 DC 07/27/18 10:45 Famotidine (Pepcid Vial) 20 mg 1X ONCE IVP 07/27/18 10:15 07/27/18 10:16 DC 07/27/18 10:46 Iohexol (Omnipaque 300 Mg/ml) 75 ml 1X ONCE IV 07/27/18 10:30 07/27/18 10:31 DC 07/27/18 11:33 Sodium Chloride 1,000 ml @ 125 mls/hr 1X ONCE IV 07/27/18 12:45 07/27/18 20:44 07/27/18 12:55 Metronidazole 100 ml @ 100 mls/hr ONCE ONCE IV 07/27/18 12:45 07/27/18 13:44 07/27/18 12:55 Ciprofloxacin/ Dextrose 200 ml @ 200 mls/hr ONCE ONCE IV 07/27/18 12:45 07/27/18 13:44 07/27/18 12:55 Imaging: Imaging: CT A/P 07/27/18 IMPRESSION: 1. Mild inflammatory fat stranding identified in the proximal sigmoid colon likely mild acute diverticulitis. There is mild mucosal thickening identified in the proximal sigmoid colon at the site of inflammation probably due to underlying inflammation or neoplasm. Follow-up colonoscopy recommended after the acute episode is resolved. 2. Punctate 3 mm intrarenal collecting system calculus left kidney. CT A/P 06/19/18 IMPRESSION: 1. Diverticulosis. There is some focal wall thickening of the sigmoid colon. Stranding within the pericolonic fat, also dissecting along the central mesenteric fat. Findings are compatible with acute colitis and may represent diverticulitis. However, note that the fatty stranding extends superior to the sigmoid colon abnormality, along the central mesenteric stalk. Within the central mesenteric fatty stranding is an ill-defined and somewhat stellate area of soft tissue density measuring about 15 mm. This could represent an area of infectious or phlegmonous material, versus a small central mesenteric mass, such as carcinoid tumor, or more chronic scarring. Recommend short-term follow-up imaging after acute treatment. 2. Dense material within the appendix, may represent barium from prior study or dense appendicoliths. However, no evidence of acute appendicitis. 3. Mild linear/groundglass opacity in both lung bases, most likely atelectasis or fibrosis. 4. Small subcentimeter hypodense lesions both kidneys are too small to characterize. There is slightly larger lesion in the left kidney measures 16 mm and 40 Hounsfield units, greater than a simple cyst. This could represent a hemorrhagic cyst but other etiologies are not excludable. Renal ultrasound on a nonemergent basis could further evaluate. 5. Tiny nonobstructive left lower pole renal calculi. PE: GEN: NAD HEENT: Atraumatic, PERRL LUNGS: CTAB HEART: RRR ABD: EXTREMITY: No edema SKIN: No rashes, no jaundice NEURO/PSYCH: A & O �3 A/P: A/P: LLQ pain H/o diverticulitis - required intpt treatment in the past w/ discussion for elective colon resection Abnormal CTs - suggestive of sigmoid diverticulitis, other findings as above CRC screen - reports colonoscopy 3-4 years ago -- Medical therapy for diverticulitis. Outpt colonoscopy in 6-8 weeks ?surgical eval LESLEY-CARLIE SPRINGER Jul 27, 2018 13:07
[2018-07-27 13:35] VITALS: BP 142/96
[2018-07-27] MEDS ORDERED: DIAZEPAM10 MG PO (13:57)
[2018-07-27] MEDS ORDERED: LURA80TA PO (13:57)
[2018-07-27] MEDS ORDERED: ZOLP10TA4 PO (13:57)
[2018-07-27] MEDS: MORPHINE SULFATE 4 MG/ML VIAL. IV PRN ×2 (15:28→19:57)
[2018-07-27 19:00] VITALS: BP 151/96
[2018-07-27] MEDS: CIPROFLOXACIN 400MG PREMIX 200 ML IV SCH (20:48)
[2018-07-27] MEDS: ZOLPIDEM 5 MG TABLET. PO PRN (22:13)
[2018-07-27 23:00] VITALS: BP 125/76
--- NOTE | 2018-07-27 23:14 | HP ---
ADMIT DATE: 07/27/2018 CHIEF COMPLAINT: Abdominal pain. HISTORY OF PRESENT ILLNESS: The patient is a pleasant middle-aged male who presents with abdominal pain rated 7/10, worse with food, better with sitting still, describes as agonizing, has been occurring for several days. We did a CAT scan. He has got diverticulitis. We are going to admit the patient and consult GI. PAST MEDICAL HISTORY: Previous diverticulitis, hypertension, hyperlipidemia. ALLERGIES: None. FAMILY HISTORY: Coronary artery disease. SOCIAL HISTORY: He does not drink, smoke or take drugs. He is on disability. MEDICATIONS: Reviewed, please refer to the MRAD. He is on 8 including Cipro, Flagyl, aspirin, [place], [place], diazepam, Ambien, hydrochlorothiazide. REVIEW OF SYSTEMS: GENERAL: No history of weight change, weakness or fevers. SKIN: No bruising, hair changes or rashes. EYES: No blurred, double or loss of vision. NOSE AND THROAT: No history of nosebleeds, hoarseness or sore throat. HEART: No history of palpitations, chest pain or shortness of breath on exertion. LUNGS: Denies cough, hemoptysis, wheezing or shortness of breath. GASTROINTESTINAL: He complains of improving abdominal pain. GENITOURINARY: No history of frequency, urgency, hesitancy or nocturia. NEUROLOGIC: Denies history of numbness, tingling, tremor or weakness. PSYCHIATRIC: No history of panic, anxiety or depression. ENDOCRINE: No history of heat or cold intolerance, polyuria or polydipsia. EXTREMITIES: Denies muscle weakness, joint pain, pain on walking or stiffness. PHYSICAL EXAMINATION: VITAL SIGNS: Temperature afebrile, pulse 90, respirations 16, blood pressure 151/90. GENERAL: He is sleeping. He awakens with flat affect, but pleasant. HEART: Normal S1, S2. LUNGS: Clear. ABDOMEN: Soft. Decreased bowel sounds, tender, little obese. EXTREMITIES: No edema. SKIN: No rash. ENDOCRINE: No thyromegaly. LYMPHATICS: No cervical nodes. HEMATOPOIETIC: No bruising. PSYCHIATRIC: He is depressed. LABORATORY DATA: Hematology is normal. Electrolytes are normal. CAT scan shows diverticulitis. ASSESSMENT AND PLAN: Diverticulitis. The patient has been admitted. We will start IV Flagyl, IV Levaquin, p.r.n. Zofran, p.r.n. morphine, IV fluids. Consult GI. Home meds, frequent labs. ROSALINDA LUCIA DO DR: DIAMANTE/gopi JOB#: [id number] / [id number]
[2018-07-28 03:00] VITALS: BP 129/69
[2018-07-28] MEDS: MORPHINE SULFATE 4 MG/ML VIAL. IV PRN ×5 (06:20→22:13)
[2018-07-28] MEDS: NICOTINE 21MG PATCH. TD PRN (06:23)
[2018-07-28 07:00] VITALS: BP 114/70
[2018-07-28] MEDS: CIPROFLOXACIN 400MG PREMIX 200 ML IV SCH ×2 (09:04→20:37)
[2018-07-28 09:19] LABS: BASO # 0.1 x10^3/uL (0.0-0.2); BASO % 1 % (0-3); EOS # 0.2 x10^3/uL (0.0-0.7); EOS % 2 % (0-3); HEMATOCRIT 40.5 % (39.0-53.0); LYMPH # 1.9 x10^3/uL (1.0-4.8); LYMPH % 21 % (24-48); MEAN CORPUSCULAR HEMOGLOBIN 30 pg (25-35); MEAN CORPUSCULAR HGB CONC 35 g/dL (31-37); MEAN CORPUSCULAR VOLUME 88 fL (79-100); MONO # 0.7 x10^3/uL (0.0-1.1); MONO % 8 % (0-9); NEUT # 5.9 x10^3uL (1.8-7.7); NEUT % 68 % (31-73); PLATELET COUNT 241 x10^3/uL (140-400); RED BLOOD COUNT 4.61 x10^6/uL (4.30-5.70); RED CELL DISTRIBUTION WIDTH 14.7 % (11.5-14.5); WHITE BLOOD COUNT 8.7 x10^3/uL (4.0-11.0)
[2018-07-28 09:44] LABS: ALBUMIN 2.8 g/dL (3.4-5.0); ALBUMIN/GLOBULIN RATIO 0.7 (1.0-1.7); CALCIUM 8.3 mg/dL (8.5-10.1); CREATININE 0.9 mg/dL (0.7-1.3); GFR 89.3; POTASSIUM 3.8 mmol/L (3.5-5.1); TOTAL BILIRUBIN 0.3 mg/dL (0.2-1.0); TOTAL PROTEIN 6.7 g/dL (6.4-8.2)
--- NOTE | 2018-07-28 09:54 | PDOC ---
Subjective: Subjective: LLQ pain the same, needs morphine. Given clears last night and this morning - tolerating. Objective: Vital Signs: Vital Signs Date Time Temp Pulse Resp B/P (MAP) Pulse Ox O2 Delivery O2 Flow Rate FiO2 07/28/18 09:36 16 Room Air 07/28/18 07:00 98.2 73 114/70 (85) 94 98.2 Labs: Laboratory Tests Test 07/27/18 10:08 07/27/18 10:25 07/28/18 08:35 Urine Collection Type Unknown Urine Color Yellow Urine Clarity Clear Urine pH 5.5 Urine Specific [place] 1.015 Urine Protein Negative mg/dL Urine Glucose (UA) Negative mg/dL Urine Ketones (Stick) Negative mg/dL Urine Blood Trace Urine Nitrite Negative Urine Bilirubin Negative Urine Urobilinogen Dipstick 0.2 mg/dL Urine Leukocyte Esterase Negative Urine RBC 0 /HPF Urine WBC 0 /HPF Urine Squamous Epithelial Cells Few /LPF Urine Bacteria 0 /HPF Urine Opiates Screen Neg Urine Methadone Screen Neg Urine Barbiturates Neg Urine Phencyclidine Screen Neg Urine Amphetamine/Methamphetamine Neg Urine Benzodiazepines Screen Pos Urine Cocaine Screen Neg Urine Cannabinoids Screen Neg Urine Ethyl Alcohol Neg White Blood Count 10.4 x10^3/uL 8.7 x10^3/uL Red Blood Count 4.99 x10^6/uL 4.61 x10^6/uL Hemoglobin 15.0 g/dL 14.0 g/dL Hematocrit 43.6 % 40.5 % Mean Corpuscular Volume 87 fL 88 fL Mean Corpuscular Hemoglobin 30 pg 30 pg Mean Corpuscular Hemoglobin Concent 34 g/dL 35 g/dL Red Cell Distribution Width 15.1 % 14.7 % Platelet Count 261 x10^3/uL 241 x10^3/uL Neutrophils (%) (Auto) 68 % 68 % Lymphocytes (%) (Auto) 21 % 21 % Monocytes (%) (Auto) 8 % 8 % Eosinophils (%) (Auto) 2 % 2 % Basophils (%) (Auto) 1 % 1 % Neutrophils # (Auto) 7.1 x10^3uL 5.9 x10^3uL Lymphocytes # (Auto) 2.1 x10^3/uL 1.9 x10^3/uL Monocytes # (Auto) 0.9 x10^3/uL 0.7 x10^3/uL Eosinophils # (Auto) 0.2 x10^3/uL 0.2 x10^3/uL Basophils # (Auto) 0.1 x10^3/uL 0.1 x10^3/uL Sodium Level 136 mmol/L 140 mmol/L Potassium Level 4.0 mmol/L 3.8 mmol/L Chloride Level 101 mmol/L 103 mmol/L Carbon Dioxide Level 30 mmol/L 28 mmol/L Anion Gap 5 9 Blood Urea Nitrogen 13 mg/dL 8 mg/dL Creatinine 0.8 mg/dL 0.9 mg/dL Estimated GFR (Cockcroft-Gault) 102.3 89.3 BUN/Creatinine Ratio 16 9 Glucose Level 82 mg/dL 128 mg/dL Calcium Level 9.1 mg/dL 8.3 mg/dL Total Bilirubin 0.4 mg/dL 0.3 mg/dL Aspartate Amino Transf (AST/SGOT) 13 U/L 11 U/L Alanine Aminotransferase (ALT/SGPT) 18 U/L 16 U/L Alkaline Phosphatase 82 U/L 70 U/L Total Protein 7.5 g/dL 6.7 g/dL Albumin 3.1 g/dL 2.8 g/dL Albumin/Globulin Ratio 0.7 0.7 Lipase 137 U/L Ethyl Alcohol Level < 10 mg/dL PE: GEN: NAD LUNGS: CTAB HEART: RRR ABD: quiet, large, LLQ tenderness NEURO/PSYCH: A & O �3 A/P: LLQ pain, recurrent diverticulitis -- Labs and vitals stable w/ ongoing pain. Continue IV atbx, wouldn't go beyond clears at this point. CARLIE LILLY Jul 28, 2018 09:54
[2018-07-28 11:00] VITALS: BP 100/79
--- NOTE | 2018-07-28 11:11 | PDOC ---
PROGRESS NOTES History of Present Illness History of Present Illness ASSESSMENT AND PLAN: acute Diverticulitis. hx recurrent diverticulitis mild mucosal thickening identified in the proximal sigmoid colon at the site of inflammation probably due to underlying inflammation or neoplasm. Follow-up colonoscopy recommended after the acute episode is resolved. admitted. IV Flagyl, IV Levaquin, p.r.n. Zofran, p.r.n. morphine, IV fluid support. Consult GI. Home meds, frequent labs. Vitals Vitals Vital Signs Date Time Temp Pulse Resp B/P (MAP) Pulse Ox O2 Delivery O2 Flow Rate FiO2 07/28/18 09:36 16 Room Air 07/28/18 07:00 98.2 73 114/70 (85) 94 98.2 Physical Exam Physical Exam GENERAL: awakens with flat affect, but pleasant. HEART: Normal S1, S2. LUNGS: Clear. ABDOMEN: Soft. Decreased bowel sounds, tender, little obese. EXTREMITIES: No edema. SKIN: No rash. ENDOCRINE: No thyromegaly. LYMPHATICS: No cervical nodes. HEMATOPOIETIC: No bruising. PSYCHIATRIC: He is depressed. General: Alert, Oriented X3, Cooperative, mild distress Heart: Regular rate, Normal S1, No murmurs Lungs: Clear Abdomen: No hepatosplenomegaly, No masses Extremities: No clubbing, No cyanosis, No tenderness/swelling Skin: No significant lesion Labs LABS STATUS: REG ER ORD. PHYSICIAN: CARLOS BOSS APRN REASON: left LQ pain hx of diverticulitis PROCEDURE: CT ABD PELV W/ IV CONTRST ONLY Examination: CT of the abdomen pelvis with IV contrast HISTORY: History of left lower quadrant abdominal pain COMPARISON: 06/19/2018 TECHNIQUE: Axial CT images of the abdomen pelvis were performed. Coronal and sagittal reformats are performed Exposure: One or more of the following individualized dose reduction techniques were utilized for this examination: 1. Automated exposure control 2. Adjustment of the mA and/or kV according to patient size 3. Use of iterative reconstruction technique FINDINGS: Minimal bibasilar lung atelectasis. No evidence of free air identified in the abdomen. The visualized liver, spleen, adrenals grossly appears unremarkable. The gallbladder is mildly distended. The stomach is minimally distended. The visualized pancreas grossly appears unremarkable. The small bowel is nondilated. The appendix is normal. Feces and gas noted in the colon. Multiple sigmoid colon diverticulosis identified. There is mild to moderate fat stranding identified about the proximal sigmoid colon likely acute diverticulitis. There is mild thickened appearance of the wall of the proximal sigmoid colon at the site of inflammation. Urinary bladder is mildly distended. Bilateral kidneys enhance symmetrically. Punctate 3 mm intrarenal collecting system calculus identified in the left kidney. Mild degenerative changes lumbar spine. Circumaortic left renal vein. IMPRESSION: 1. Mild inflammatory fat stranding identified in the proximal sigmoid colon likely mild acute diverticulitis. There is mild mucosal thickening identified in the proximal sigmoid colon at the site of inflammation probably due to underlying inflammation or neoplasm. Follow-up colonoscopy recommended after the acute episode is resolved. 2. Punctate 3 mm intrarenal collecting system calculus left kidney. Electronically signed by: Ramakrishna Choi MD (07/27/2018 12:19 PM) [id number] DICTATED and SIGNED BY: RAMAKRISHNA CHOI MD DATE: 07/27/18 1210 Laboratory Tests Test 07/28/18 08:35 White Blood Count 8.7 x10^3/uL (4.0-11.0) Red Blood Count 4.61 x10^6/uL (4.30-5.70) Hemoglobin 14.0 g/dL (13.0-17.5) Hematocrit 40.5 % (39.0-53.0) Mean Corpuscular Volume 88 fL (79-100) Mean Corpuscular Hemoglobin 30 pg (25-35) Mean Corpuscular Hemoglobin Concent 35 g/dL (31-37) Red Cell Distribution Width 14.7 % (11.5-14.5) Platelet Count 241 x10^3/uL (140-400) Neutrophils (%) (Auto) 68 % (31-73) Lymphocytes (%) (Auto) 21 % (24-48) Monocytes (%) (Auto) 8 % (0-9) Eosinophils (%) (Auto) 2 % (0-3) Basophils (%) (Auto) 1 % (0-3) Neutrophils # (Auto) 5.9 x10^3uL (1.8-7.7) Lymphocytes # (Auto) 1.9 x10^3/uL (1.0-4.8) Monocytes # (Auto) 0.7 x10^3/uL (0.0-1.1) Eosinophils # (Auto) 0.2 x10^3/uL (0.0-0.7) Basophils # (Auto) 0.1 x10^3/uL (0.0-0.2) Sodium Level 140 mmol/L (136-145) Potassium Level 3.8 mmol/L (3.5-5.1) Chloride Level 103 mmol/L (98-107) Carbon Dioxide Level 28 mmol/L (21-32) Anion Gap 9 (6-14) Blood Urea Nitrogen 8 mg/dL (8-26) Creatinine 0.9 mg/dL (0.7-1.3) Estimated GFR (Cockcroft-Gault) 89.3 BUN/Creatinine Ratio 9 (6-20) Glucose Level 128 mg/dL (70-99) Calcium Level 8.3 mg/dL (8.5-10.1) Total Bilirubin 0.3 mg/dL (0.2-1.0) Aspartate Amino Transf (AST/SGOT) 11 U/L (15-37) Alanine Aminotransferase (ALT/SGPT) 16 U/L (16-63) Alkaline Phosphatase 70 U/L (46-116) Total Protein 6.7 g/dL (6.4-8.2) Albumin 2.8 g/dL (3.4-5.0) Albumin/Globulin Ratio 0.7 (1.0-1.7) Assessment and Plan Assessmemt and Plan Problems Medical Problems: (1) Diverticulitis Status: Acute Comment Review of Relevant I have reviewed the following items nai (where applicable) has been applied. Labs Laboratory Tests Test 07/27/18 10:08 07/27/18 10:25 07/28/18 08:35 Urine Collection Type Unknown Urine Color Yellow Urine Clarity Clear Urine pH 5.5 Urine Specific [place] 1.015 Urine Protein Negative mg/dL (NEG-TRACE) Urine Glucose (UA) Negative mg/dL (NEG) Urine Ketones (Stick) Negative mg/dL (NEG) Urine Blood Trace (NEG) Urine Nitrite Negative (NEG) Urine Bilirubin Negative (NEG) Urine Urobilinogen Dipstick 0.2 mg/dL (0.2 mg/dL) Urine Leukocyte Esterase Negative (NEG) Urine RBC 0 /HPF (0-2) Urine WBC 0 /HPF (0-4) Urine Squamous Epithelial Cells Few /LPF Urine Bacteria 0 /HPF (0-FEW) Urine Opiates Screen Neg (NEG) Urine Methadone Screen Neg (NEG) Urine Barbiturates Neg (NEG) Urine Phencyclidine Screen Neg (NEG) Urine Amphetamine/Methamphetamine Neg (NEG) Urine Benzodiazepines Screen Pos (NEG) Urine Cocaine Screen Neg (NEG) Urine Cannabinoids Screen Neg (NEG) Urine Ethyl Alcohol Neg (NEG) White Blood Count 10.4 x10^3/uL (4.0-11.0) 8.7 x10^3/uL (4.0-11.0) Red Blood Count 4.99 x10^6/uL (4.30-5.70) 4.61 x10^6/uL (4.30-5.70) Hemoglobin 15.0 g/dL (13.0-17.5) 14.0 g/dL (13.0-17.5) Hematocrit 43.6 % (39.0-53.0) 40.5 % (39.0-53.0) Mean Corpuscular Volume 87 fL (79-100) 88 fL (79-100) Mean Corpuscular Hemoglobin 30 pg (25-35) 30 pg (25-35) Mean Corpuscular Hemoglobin Concent 34 g/dL (31-37) 35 g/dL (31-37) Red Cell Distribution Width 15.1 % (11.5-14.5) 14.7 % (11.5-14.5) Platelet Count 261 x10^3/uL (140-400) 241 x10^3/uL (140-400) Neutrophils (%) (Auto) 68 % (31-73) 68 % (31-73) Lymphocytes (%) (Auto) 21 % (24-48) 21 % (24-48) Monocytes (%) (Auto) 8 % (0-9) 8 % (0-9) Eosinophils (%) (Auto) 2 % (0-3) 2 % (0-3) Basophils (%) (Auto) 1 % (0-3) 1 % (0-3) Neutrophils # (Auto) 7.1 x10^3uL (1.8-7.7) 5.9 x10^3uL (1.8-7.7) Lymphocytes # (Auto) 2.1 x10^3/uL (1.0-4.8) 1.9 x10^3/uL (1.0-4.8) Monocytes # (Auto) 0.9 x10^3/uL (0.0-1.1) 0.7 x10^3/uL (0.0-1.1) Eosinophils # (Auto) 0.2 x10^3/uL (0.0-0.7) 0.2 x10^3/uL (0.0-0.7) Basophils # (Auto) 0.1 x10^3/uL (0.0-0.2) 0.1 x10^3/uL (0.0-0.2) Sodium Level 136 mmol/L (136-145) 140 mmol/L (136-145) Potassium Level 4.0 mmol/L (3.5-5.1) 3.8 mmol/L (3.5-5.1) Chloride Level 101 mmol/L (98-107) 103 mmol/L (98-107) Carbon Dioxide Level 30 mmol/L (21-32) 28 mmol/L (21-32) Anion Gap 5 (6-14) 9 (6-14) Blood Urea Nitrogen 13 mg/dL (8-26) 8 mg/dL (8-26) Creatinine 0.8 mg/dL (0.7-1.3) 0.9 mg/dL (0.7-1.3) Estimated GFR (Cockcroft-Gault) 102.3 89.3 BUN/Creatinine Ratio 16 (6-20) 9 (6-20) Glucose Level 82 mg/dL (70-99) 128 mg/dL (70-99) Calcium Level 9.1 mg/dL (8.5-10.1) 8.3 mg/dL (8.5-10.1) Total Bilirubin 0.4 mg/dL (0.2-1.0) 0.3 mg/dL (0.2-1.0) Aspartate Amino Transf (AST/SGOT) 13 U/L (15-37) 11 U/L (15-37) Alanine Aminotransferase (ALT/SGPT) 18 U/L (16-63) 16 U/L (16-63) Alkaline Phosphatase 82 U/L (46-116) 70 U/L (46-116) Total Protein 7.5 g/dL (6.4-8.2) 6.7 g/dL (6.4-8.2) Albumin 3.1 g/dL (3.4-5.0) 2.8 g/dL (3.4-5.0) Albumin/Globulin Ratio 0.7 (1.0-1.7) 0.7 (1.0-1.7) Lipase 137 U/L (73-393) Ethyl Alcohol Level < 10 mg/dL (0-10) Laboratory Tests Test 07/28/18 08:35 White Blood Count 8.7 x10^3/uL (4.0-11.0) Red Blood Count 4.61 x10^6/uL (4.30-5.70) Hemoglobin 14.0 g/dL (13.0-17.5) Hematocrit 40.5 % (39.0-53.0) Mean Corpuscular Volume 88 fL (79-100) Mean Corpuscular Hemoglobin 30 pg (25-35) Mean Corpuscular Hemoglobin Concent 35 g/dL (31-37) Red Cell Distribution Width 14.7 % (11.5-14.5) Platelet Count 241 x10^3/uL (140-400) Neutrophils (%) (Auto) 68 % (31-73) Lymphocytes (%) (Auto) 21 % (24-48) Monocytes (%) (Auto) 8 % (0-9) Eosinophils (%) (Auto) 2 % (0-3) Basophils (%) (Auto) 1 % (0-3) Neutrophils # (Auto) 5.9 x10^3uL (1.8-7.7) Lymphocytes # (Auto) 1.9 x10^3/uL (1.0-4.8) Monocytes # (Auto) 0.7 x10^3/uL (0.0-1.1) Eosinophils # (Auto) 0.2 x10^3/uL (0.0-0.7) Basophils # (Auto) 0.1 x10^3/uL (0.0-0.2) Sodium Level 140 mmol/L (136-145) Potassium Level 3.8 mmol/L (3.5-5.1) Chloride Level 103 mmol/L (98-107) Carbon Dioxide Level 28 mmol/L (21-32) Anion Gap 9 (6-14) Blood Urea Nitrogen 8 mg/dL (8-26) Creatinine 0.9 mg/dL (0.7-1.3) Estimated GFR (Cockcroft-Gault) 89.3 BUN/Creatinine Ratio 9 (6-20) Glucose Level 128 mg/dL (70-99) Calcium Level 8.3 mg/dL (8.5-10.1) Total Bilirubin 0.3 mg/dL (0.2-1.0) Aspartate Amino Transf (AST/SGOT) 11 U/L (15-37) Alanine Aminotransferase (ALT/SGPT) 16 U/L (16-63) Alkaline Phosphatase 70 U/L (46-116) Total Protein 6.7 g/dL (6.4-8.2) Albumin 2.8 g/dL (3.4-5.0) Albumin/Globulin Ratio 0.7 (1.0-1.7) Medications Current Medications Morphine Sulfate (Morphine Sulfate) 5 mg 1X ONCE IV Last administered on at 10:46; Start 07/27/18 at 10:15; Stop 07/27/18 at 10:16; Status DC Sodium Chloride 1,000 ml @ 1,000 mls/hr 1X ONCE IV Last administered on at 10:45; Start 07/27/18 at 10:15; Stop 07/27/18 at 11:14; Status DC Famotidine (Pepcid Vial) 20 mg 1X ONCE IVP Last administered on 07/27/18at 10: 46; Start 07/27/18 at 10:15; Stop 07/27/18 at 10:16; Status DC Iohexol (Omnipaque 300 Mg/ml) 75 ml 1X ONCE IV Last administered on 07/27/18at 11:33; Start 07/27/18 at 10:30; Stop 07/27/18 at 10:31; Status DC Info (CONTRAST GIVEN -- Rx MONITORING) 1 each PRN DAILY PRN MC SEE COMMENTS; Start 07/27/18 at 10:30; Stop 07/29/18 at 10:29 Ondansetron HCl (Zofran) 4 mg PRN Q8HRS PRN IV NAUSEA/VOMITING; Start 07/27/18 at 12:45; Stop 07/28/18 at 12:44 Morphine Sulfate (Morphine Sulfate) 4 mg PRN Q2HR PRN IV PAIN Last administered on 07/28/18 09:06; Start 07/27/18 at 12:45; Stop 07/28/18 at 12:44 Sodium Chloride 1,000 ml @ 125 mls/hr 1X ONCE IV Last administered on at 12:55; Start 07/27/18 at 12:45; Stop 07/27/18 at 20:44; Status DC Metronidazole 100 ml @ 100 mls/hr Q8HRS IV Last administered on 07/28/18at 06: 19; Start 07/27/18 at 22:00 Ciprofloxacin/ Dextrose 200 ml @ 200 mls/hr BID IV Last administered on at 09:04; Start 07/27/18 at 21:00 Metronidazole 100 ml @ 100 mls/hr ONCE ONCE IV Last administered on at 12:55; Start 07/27/18 at 12:45; Stop 07/27/18 at 13:44; Status DC Ciprofloxacin/ Dextrose 200 ml @ 200 mls/hr ONCE ONCE IV Last administered on 07/27/18at 12:55; Start 07/27/18 at 12:45; Stop 07/27/18 at 13:44; Status DC Zolpidem Tartrate (Ambien) 10 mg PRN QHS PRN PO INSOMNIA, MAY REPEAT IN 1HR Last administered on 07/27/18at 22:13; Start 07/27/18 at 19:15 Nicotine (Nicoderm Cq 21mg) 1 patch PRN DAILY PRN TD SMOKING CESSATION Last administered on 07/28/18at 06:23; Start 07/28/18 at 04:00 Active Scripts Active Flagyl (Metronidazole) 500 Mg Tablet 500 Mg PO TID 7 Days Ciprofloxacin Hcl 500 Mg Tablet 1 Tab PO BID [place] 5-325 Tablet (Acetaminophen/Hydrocodone Bitart) 1 Each Tablet 1-2 Each PO PRN Q6HRS PRN MDD 4 as needed for pain Hydrochlorothiazide Tablet (Hydrochlorothiazide) 25 Mg Tablet 1 Tab PO DAILY Aspirin 325 Mg Tablet 1 Tab PO TID PRN Reported Latuda (Lurasidone Hcl) 80 Mg Tablet 1 Tab PO DAILYWSUP Diazepam 10 Mg Tablet 10 Mg PO DAILY PRN Zolpidem Tartrate 10 Mg Tablet 10 Mg PO PRN QHS PRN Vitals/I & O Vital Sign - Last 24 Hours 07/27/18 07/27/18 07/27/18 07/27/18 13:12 13:30 13:35 19:00 Temp 97.7 97.5 97.7 97.5 Pulse 70 70 76 Resp 18 16 B/P (MAP) 125/67 (86) 142/96 (111) 151/96 (114) Pulse Ox 99 95 96 O2 Delivery Room Air Room Air Room Air Room Air 07/27/18 07/27/18 07/27/18 07/28/18 19:57 20:00 23:00 03:00 Temp 98.1 98.5 98.1 98.5 Pulse 72 77 Resp 14 16 B/P (MAP) 125/76 (92) 129/69 (89) Pulse Ox 95 97 95 O2 Delivery Room Air Room Air Room Air Room Air 07/28/18 07/28/18 07/28/18 07/28/18 06:20 06:50 07:00 09:06 Temp 98.2 98.2 Pulse 73 Resp 16 16 B/P (MAP) 114/70 (85) Pulse Ox 95 95 94 O2 Delivery Room Air Room Air Room Air 07/28/18 09:36 Resp 16 O2 Delivery Room Air Intake and Output 07/27/18 07/27/18 07/28/18 15:01 23:01 07:01 Intake Total 1000 ml 500 ml 2950 ml Balance 1000 ml 500 ml 2950 ml CHARLA ROJAS MD Jul 28, 2018 11:11
--- NOTE | 2018-07-28 11:19 | NUR ---
SW following for discharge planning. Chart reviewed, discussed with RN. RN advised no SW needs at this time. SW will continue to follow.
[2018-07-28 15:00] VITALS: BP 124/79
[2018-07-28 19:00] VITALS: BP 132/84
[2018-07-28] MEDS ORDERED: ONDANSETRON PF 4 MG/2 ML VIAL. IV PRN (19:30)
[2018-07-28] MEDS: LACTOBACILLUS RHAMNOSUS GG 1 CAPSULE. PO SCH (20:37)
[2018-07-28] MEDS: ZOLPIDEM 5 MG TABLET. PO PRN ×2 (22:13→23:54)
[2018-07-28 23:00] VITALS: BP 125/74
[2018-07-29 03:00] VITALS: BP 114/68
[2018-07-29 06:28] LABS: HEMATOCRIT 41.7 % (39.0-53.0); HEMOGLOBIN 14.2 g/dL (13.0-17.5); RED BLOOD COUNT 4.73 x10^6/uL (4.30-5.70); RED CELL DISTRIBUTION WIDTH 14.7 % (11.5-14.5); WHITE BLOOD COUNT 7.4 x10^3/uL (4.0-11.0)
[2018-07-29 06:59] LABS: CALCIUM 8.4 mg/dL (8.5-10.1); CREATININE 0.9 mg/dL (0.7-1.3); GFR 89.3; POTASSIUM 3.8 mmol/L (3.5-5.1)
[2018-07-29 07:00] VITALS: BP 150/87
--- NOTE | 2018-07-29 08:30 | NUR ---
This nurse paged MD to increase the patient's diet, orders received to full liquid, this nurse will continue to monitor.
[2018-07-29] MEDS: CIPROFLOXACIN 400MG PREMIX 200 ML IV SCH ×2 (09:10→21:45)
[2018-07-29] MEDS: LACTOBACILLUS RHAMNOSUS GG 1 CAPSULE. PO SCH ×2 (09:11→21:00)
[2018-07-29 11:00] VITALS: BP 132/93
[2018-07-29] MEDS: NICOTINE 21MG PATCH. TD PRN (11:04)
--- NOTE | 2018-07-29 11:18 | PDOC ---
PROGRESS NOTES History of Present Illness History of Present Illness ASSESSMENT AND PLAN: acute Diverticulitis. hx recurrent diverticulitis mild mucosal thickening identified in the proximal sigmoid colon at the site of inflammation probably due to underlying inflammation or neoplasm. Follow-up colonoscopy recommended after the acute episode is resolved. SEEN at bedside, resting comfortably admitted. IV Flagyl, IV Levaquin, p.r.n. Zofran, p.r.n. morphine, IV fluid support. GI. following Home meds, frequent labs. Vitals Vitals Vital Signs Date Time Temp Pulse Resp B/P (MAP) Pulse Ox O2 Delivery O2 Flow Rate FiO2 07/29/18 08:15 Room Air 07/29/18 07:00 98.2 69 18 150/87 (108) 95 98.2 Physical Exam Physical Exam GENERAL: awakens with flat affect, but pleasant. HEART: Normal S1, S2. LUNGS: Clear. ABDOMEN: Soft. Decreased bowel sounds, tender, little obese. EXTREMITIES: No edema. SKIN: No rash. ENDOCRINE: No thyromegaly. LYMPHATICS: No cervical nodes. HEMATOPOIETIC: No bruising. PSYCHIATRIC: He is depressed. General: Alert, Oriented X3, Cooperative, mild distress Heart: Regular rate, Normal S1, No murmurs Lungs: Clear Abdomen: Soft, No hepatosplenomegaly, No masses Extremities: No clubbing, No cyanosis, No tenderness/swelling Skin: No significant lesion Labs LABS Laboratory Tests Test 07/29/18 06:12 White Blood Count 7.4 x10^3/uL (4.0-11.0) Red Blood Count 4.73 x10^6/uL (4.30-5.70) Hemoglobin 14.2 g/dL (13.0-17.5) Hematocrit 41.7 % (39.0-53.0) Mean Corpuscular Volume 88 fL (79-100) Mean Corpuscular Hemoglobin 30 pg (25-35) Mean Corpuscular Hemoglobin Concent 34 g/dL (31-37) Red Cell Distribution Width 14.7 % (11.5-14.5) Platelet Count 247 x10^3/uL (140-400) Sodium Level 141 mmol/L (136-145) Potassium Level 3.8 mmol/L (3.5-5.1) Chloride Level 104 mmol/L (98-107) Carbon Dioxide Level 30 mmol/L (21-32) Anion Gap 7 (6-14) Blood Urea Nitrogen 7 mg/dL (8-26) Creatinine 0.9 mg/dL (0.7-1.3) Estimated GFR (Cockcroft-Gault) 89.3 Glucose Level 117 mg/dL (70-99) Calcium Level 8.4 mg/dL (8.5-10.1) Assessment and Plan Assessmemt and Plan Problems Medical Problems: (1) Diverticulitis Status: Acute Comment Review of Relevant I have reviewed the following items ani (where applicable) has been applied. Labs Laboratory Tests Test 07/28/18 08:35 07/29/18 06:12 White Blood Count 8.7 x10^3/uL (4.0-11.0) 7.4 x10^3/uL (4.0-11.0) Red Blood Count 4.61 x10^6/uL (4.30-5.70) 4.73 x10^6/uL (4.30-5.70) Hemoglobin 14.0 g/dL (13.0-17.5) 14.2 g/dL (13.0-17.5) Hematocrit 40.5 % (39.0-53.0) 41.7 % (39.0-53.0) Mean Corpuscular Volume 88 fL (79-100) 88 fL (79-100) Mean Corpuscular Hemoglobin 30 pg (25-35) 30 pg (25-35) Mean Corpuscular Hemoglobin Concent 35 g/dL (31-37) 34 g/dL (31-37) Red Cell Distribution Width 14.7 % (11.5-14.5) 14.7 % (11.5-14.5) Platelet Count 241 x10^3/uL (140-400) 247 x10^3/uL (140-400) Neutrophils (%) (Auto) 68 % (31-73) Lymphocytes (%) (Auto) 21 % (24-48) Monocytes (%) (Auto) 8 % (0-9) Eosinophils (%) (Auto) 2 % (0-3) Basophils (%) (Auto) 1 % (0-3) Neutrophils # (Auto) 5.9 x10^3uL (1.8-7.7) Lymphocytes # (Auto) 1.9 x10^3/uL (1.0-4.8) Monocytes # (Auto) 0.7 x10^3/uL (0.0-1.1) Eosinophils # (Auto) 0.2 x10^3/uL (0.0-0.7) Basophils # (Auto) 0.1 x10^3/uL (0.0-0.2) Sodium Level 140 mmol/L (136-145) 141 mmol/L (136-145) Potassium Level 3.8 mmol/L (3.5-5.1) 3.8 mmol/L (3.5-5.1) Chloride Level 103 mmol/L (98-107) 104 mmol/L (98-107) Carbon Dioxide Level 28 mmol/L (21-32) 30 mmol/L (21-32) Anion Gap 9 (6-14) 7 (6-14) Blood Urea Nitrogen 8 mg/dL (8-26) 7 mg/dL (8-26) Creatinine 0.9 mg/dL (0.7-1.3) 0.9 mg/dL (0.7-1.3) Estimated GFR (Cockcroft-Gault) 89.3 89.3 BUN/Creatinine Ratio 9 (6-20) Glucose Level 128 mg/dL (70-99) 117 mg/dL (70-99) Calcium Level 8.3 mg/dL (8.5-10.1) 8.4 mg/dL (8.5-10.1) Total Bilirubin 0.3 mg/dL (0.2-1.0) Aspartate Amino Transf (AST/SGOT) 11 U/L (15-37) Alanine Aminotransferase (ALT/SGPT) 16 U/L (16-63) Alkaline Phosphatase 70 U/L (46-116) Total Protein 6.7 g/dL (6.4-8.2) Albumin 2.8 g/dL (3.4-5.0) Albumin/Globulin Ratio 0.7 (1.0-1.7) Laboratory Tests Test 07/29/18 06:12 White Blood Count 7.4 x10^3/uL (4.0-11.0) Red Blood Count 4.73 x10^6/uL (4.30-5.70) Hemoglobin 14.2 g/dL (13.0-17.5) Hematocrit 41.7 % (39.0-53.0) Mean Corpuscular Volume 88 fL (79-100) Mean Corpuscular Hemoglobin 30 pg (25-35) Mean Corpuscular Hemoglobin Concent 34 g/dL (31-37) Red Cell Distribution Width 14.7 % (11.5-14.5) Platelet Count 247 x10^3/uL (140-400) Sodium Level 141 mmol/L (136-145) Potassium Level 3.8 mmol/L (3.5-5.1) Chloride Level 104 mmol/L (98-107) Carbon Dioxide Level 30 mmol/L (21-32) Anion Gap 7 (6-14) Blood Urea Nitrogen 7 mg/dL (8-26) Creatinine 0.9 mg/dL (0.7-1.3) Estimated GFR (Cockcroft-Gault) 89.3 Glucose Level 117 mg/dL (70-99) Calcium Level 8.4 mg/dL (8.5-10.1) Medications Current Medications Morphine Sulfate (Morphine Sulfate) 5 mg 1X ONCE IV Last administered on at 10:46; Start 07/27/18 at 10:15; Stop 07/27/18 at 10:16; Status DC Sodium Chloride 1,000 ml @ 1,000 mls/hr 1X ONCE IV Last administered on at 10:45; Start 07/27/18 at 10:15; Stop 07/27/18 at 11:14; Status DC Famotidine (Pepcid Vial) 20 mg 1X ONCE IVP Last administered on 07/27/18at 10: 46; Start 07/27/18 at 10:15; Stop 07/27/18 at 10:16; Status DC Iohexol (Omnipaque 300 Mg/ml) 75 ml 1X ONCE IV Last administered on 07/27/18at 11:33; Start 07/27/18 at 10:30; Stop 07/27/18 at 10:31; Status DC Info (CONTRAST GIVEN -- Rx MONITORING) 1 each PRN DAILY PRN MC SEE COMMENTS; Start 07/27/18 at 10:30; Stop 07/29/18 at 10:29; Status DC Ondansetron HCl (Zofran) 4 mg PRN Q8HRS PRN IV NAUSEA/VOMITING; Start 07/27/18 at 12:45; Stop 07/28/18 at 12:44; Status DC Morphine Sulfate (Morphine Sulfate) 4 mg PRN Q2HR PRN IV PAIN Last administered on 07/28/18 09:06; Start 07/27/18 at 12:45; Stop 07/28/18 at 12:44 ; Status DC Sodium Chloride 1,000 ml @ 125 mls/hr 1X ONCE IV Last administered on at 12:55; Start 07/27/18 at 12:45; Stop 07/27/18 at 20:44; Status DC Metronidazole 100 ml @ 100 mls/hr Q8HRS IV Last administered on 07/29/18 05: 58; Start 07/27/18 at 22:00 Ciprofloxacin/ Dextrose 200 ml @ 200 mls/hr BID IV Last administered on 09:10; Start 07/27/18 at 21:00 Metronidazole 100 ml @ 100 mls/hr ONCE ONCE IV Last administered on at 12:55; Start 07/27/18 at 12:45; Stop 07/27/18 at 13:44; Status DC Ciprofloxacin/ Dextrose 200 ml @ 200 mls/hr ONCE ONCE IV Last administered on 07/27/18 12:55; Start 07/27/18 at 12:45; Stop 07/27/18 at 13:44; Status DC Zolpidem Tartrate (Ambien) 10 mg PRN QHS PRN PO INSOMNIA, MAY REPEAT IN 1HR Last administered on 07/28/18 23:54; Start 07/27/18 at 19:15 Nicotine (Nicoderm Cq 21mg) 1 patch PRN DAILY PRN TD SMOKING CESSATION Last administered on 07/29/18 11:04; Start 07/28/18 at 04:00 Morphine Sulfate (Morphine Sulfate) 4 mg PRN Q2HR PRN IV PAIN Last administered on 07/28/18 22:13; Start 07/28/18 at 13:45 Lactobacillus Rhamnosus (Culturelle) 1 cap BID PO Last administered on 09:11; Start 07/28/18 at 21:00 Ondansetron HCl (Zofran) 4 mg PRN Q6HRS PRN IV NAUSEA/VOMITING Last administered on 1/18/19at 19:25; Start 07/28/18 at 19:30 Active Scripts Active Flagyl (Metronidazole) 500 Mg Tablet 500 Mg PO TID 7 Days Ciprofloxacin Hcl 500 Mg Tablet 1 Tab PO BID [place] 5-325 Tablet (Acetaminophen/Hydrocodone Bitart) 1 Each Tablet 1-2 Each PO PRN Q6HRS PRN MDD 4 as needed for pain Hydrochlorothiazide Tablet (Hydrochlorothiazide) 25 Mg Tablet 1 Tab PO DAILY Aspirin 325 Mg Tablet 1 Tab PO TID PRN Reported Latuda (Lurasidone Hcl) 80 Mg Tablet 1 Tab PO DAILYWSUP Diazepam 10 Mg Tablet 10 Mg PO DAILY PRN Zolpidem Tartrate 10 Mg Tablet 10 Mg PO PRN QHS PRN Vitals/I & O Vital Sign - Last 24 Hours 07/28/18 07/28/18 07/28/18 07/28/18 14:25 14:55 15:00 19:00 Temp 98.1 98.4 98.1 98.4 Pulse 66 76 Resp 16 16 16 18 B/P (MAP) 124/79 (94) 132/84 (100) Pulse Ox 97 96 O2 Delivery Room Air Room Air 07/28/18 07/28/18 07/28/18 07/28/18 19:20 20:00 22:13 22:45 Pulse Ox 97 97 97 O2 Delivery Room Air Room Air Room Air Room Air 07/28/18 07/29/18 07/29/18 07/29/18 23:00 03:00 07:00 08:15 Temp 98.7 97.8 98.2 98.7 97.8 98.2 Pulse 69 65 69 Resp 18 18 18 B/P (MAP) 125/74 (91) 114/68 (83) 150/87 (108) Pulse Ox 94 95 95 O2 Delivery Room Air Room Air Room Air Room Air Intake and Output 07/28/18 07/28/18 07/29/18 15:01 23:01 07:01 Intake Total 2000 ml Balance 2000 ml CHARLA ROJAS MD Jul 29, 2018 11:18
[2018-07-29 15:00] VITALS: BP 114/69
[2018-07-29] MEDS: ENOXAPARIN 40 MG/0.4 ML SYRINGE. SQ SCH (16:49)
--- NOTE | 2018-07-29 17:40 | NUR ---
This nurse paged MD about patient's requesting something for anxiety, and a stool softener, this nurse will continue to monitor.
[2018-07-29 19:00] VITALS: BP 116/65
[2018-07-29] MEDS ORDERED: SENNOSIDES 8.6 MG TABLET PO PRN (20:30)
[2018-07-29] MEDS: ZOLPIDEM 5 MG TABLET. PO PRN (21:45)
[2018-07-29] MEDS: LORazepam 0.5 MG TABLET PO PRN (21:45)
[2018-07-29 22:49] VITALS: BP 127/77
[2018-07-29] MEDS: MORPHINE SULFATE 4 MG/ML VIAL. IV PRN (23:43)
[2018-07-30 03:00] VITALS: BP 125/59
[2018-07-30] MEDS ORDERED: ACETAMINOPHEN 325 MG TABLET. PO PRN (03:00)
[2018-07-30 05:20] LABS: HEMOGLOBIN 14.7 g/dL (13.0-17.5); RED BLOOD COUNT 4.91 x10^6/uL (4.30-5.70); WHITE BLOOD COUNT 7.8 x10^3/uL (4.0-11.0)
[2018-07-30 05:21] LABS: BASO # 0.1 x10^3/uL (0.0-0.2); BASO % 1 % (0-3); EOS # 0.2 x10^3/uL (0.0-0.7); EOS % 3 % (0-3); HEMATOCRIT 42.5 % (39.0-53.0); LYMPH % 26 % (24-48); MEAN CORPUSCULAR HEMOGLOBIN 30 pg (25-35); MEAN CORPUSCULAR HGB CONC 35 g/dL (31-37); MEAN CORPUSCULAR VOLUME 87 fL (79-100); MONO # 0.6 x10^3/uL (0.0-1.1); MONO % 8 % (0-9); NEUT # 4.8 x10^3uL (1.8-7.7); NEUT % 62 % (31-73); PLATELET COUNT 267 x10^3/uL (140-400); RED CELL DISTRIBUTION WIDTH 14.8 % (11.5-14.5)
[2018-07-30] MEDS: LORazepam 0.5 MG TABLET PO PRN (05:37)
[2018-07-30 07:00] VITALS: BP 119/79
[2018-07-30] MEDS ORDERED: DOCUSATE SODIUM 100 MG CAPSULE. PO SCH (09:00)
[2018-07-30] MEDS: CIPROFLOXACIN 400MG PREMIX 200 ML IV SCH (09:01)
[2018-07-30] MEDS: LACTOBACILLUS RHAMNOSUS GG 1 CAPSULE. PO SCH (09:01)
--- NOTE | 2018-07-30 10:59 | PDOC ---
PROGRESS NOTES History of Present Illness History of Present Illness ASSESSMENT AND PLAN: acute Diverticulitis. hx recurrent diverticulitis mild mucosal thickening identified in the proximal sigmoid colon at the site of inflammation probably due to underlying inflammation or neoplasm. Follow-up colonoscopy recommended after the acute episode is resolved. SEEN at bedside, resting comfortably wants to go home today admitted. IV Flagyl, IV Levaquin, p.r.n. Zofran, p.r.n. morphine, not using x 24 hrs IV fluid support. GI. following Home meds, frequent labs. Vitals Vitals Vital Signs Date Time Temp Pulse Resp B/P (MAP) Pulse Ox O2 Delivery O2 Flow Rate FiO2 07/30/18 08:00 Room Air 07/30/18 07:00 97.4 65 18 119/79 (92) 96 97.4 Physical Exam Physical Exam GENERAL: awakens with flat affect, but pleasant. HEART: Normal S1, S2. LUNGS: Clear. ABDOMEN: Soft. Decreased bowel sounds, tender, little obese. EXTREMITIES: No edema. SKIN: No rash. ENDOCRINE: No thyromegaly. LYMPHATICS: No cervical nodes. HEMATOPOIETIC: No bruising. PSYCHIATRIC: He is depressed. General: Alert, Oriented X3, Cooperative, No acute distress, mild distress Heart: Regular rate, Normal S1, No murmurs Lungs: Clear Abdomen: Soft, No hepatosplenomegaly, No masses Extremities: No clubbing, No cyanosis, No tenderness/swelling Skin: No significant lesion Labs LABS Laboratory Tests Test 07/29/18 14:55 07/30/18 05:03 Erythrocyte Sedimentation Rate 32 (0-15) White Blood Count 7.8 x10^3/uL (4.0-11.0) Red Blood Count 4.91 x10^6/uL (4.30-5.70) Hemoglobin 14.7 g/dL (13.0-17.5) Hematocrit 42.5 % (39.0-53.0) Mean Corpuscular Volume 87 fL (79-100) Mean Corpuscular Hemoglobin 30 pg (25-35) Mean Corpuscular Hemoglobin Concent 35 g/dL (31-37) Red Cell Distribution Width 14.8 % (11.5-14.5) Platelet Count 267 x10^3/uL (140-400) Neutrophils (%) (Auto) 62 % (31-73) Lymphocytes (%) (Auto) 26 % (24-48) Monocytes (%) (Auto) 8 % (0-9) Eosinophils (%) (Auto) 3 % (0-3) Basophils (%) (Auto) 1 % (0-3) Neutrophils # (Auto) 4.8 x10^3uL (1.8-7.7) Lymphocytes # (Auto) 2.0 x10^3/uL (1.0-4.8) Monocytes # (Auto) 0.6 x10^3/uL (0.0-1.1) Eosinophils # (Auto) 0.2 x10^3/uL (0.0-0.7) Basophils # (Auto) 0.1 x10^3/uL (0.0-0.2) Assessment and Plan Assessmemt and Plan Problems Medical Problems: (1) Diverticulitis Status: Acute Comment Review of Relevant I have reviewed the following items ani (where applicable) has been applied. Labs Laboratory Tests Test 07/29/18 06:12 07/29/18 14:55 07/30/18 05:03 White Blood Count 7.4 x10^3/uL (4.0-11.0) 7.8 x10^3/uL (4.0-11.0) Red Blood Count 4.73 x10^6/uL (4.30-5.70) 4.91 x10^6/uL (4.30-5.70) Hemoglobin 14.2 g/dL (13.0-17.5) 14.7 g/dL (13.0-17.5) Hematocrit 41.7 % (39.0-53.0) 42.5 % (39.0-53.0) Mean Corpuscular Volume 88 fL (79-100) 87 fL (79-100) Mean Corpuscular Hemoglobin 30 pg (25-35) 30 pg (25-35) Mean Corpuscular Hemoglobin Concent 34 g/dL (31-37) 35 g/dL (31-37) Red Cell Distribution Width 14.7 % (11.5-14.5) 14.8 % (11.5-14.5) Platelet Count 247 x10^3/uL (140-400) 267 x10^3/uL (140-400) Sodium Level 141 mmol/L (136-145) Potassium Level 3.8 mmol/L (3.5-5.1) Chloride Level 104 mmol/L (98-107) Carbon Dioxide Level 30 mmol/L (21-32) Anion Gap 7 (6-14) Blood Urea Nitrogen 7 mg/dL (8-26) Creatinine 0.9 mg/dL (0.7-1.3) Estimated GFR (Cockcroft-Gault) 89.3 Glucose Level 117 mg/dL (70-99) Calcium Level 8.4 mg/dL (8.5-10.1) Erythrocyte Sedimentation Rate 32 (0-15) Neutrophils (%) (Auto) 62 % (31-73) Lymphocytes (%) (Auto) 26 % (24-48) Monocytes (%) (Auto) 8 % (0-9) Eosinophils (%) (Auto) 3 % (0-3) Basophils (%) (Auto) 1 % (0-3) Neutrophils # (Auto) 4.8 x10^3uL (1.8-7.7) Lymphocytes # (Auto) 2.0 x10^3/uL (1.0-4.8) Monocytes # (Auto) 0.6 x10^3/uL (0.0-1.1) Eosinophils # (Auto) 0.2 x10^3/uL (0.0-0.7) Basophils # (Auto) 0.1 x10^3/uL (0.0-0.2) Laboratory Tests Test 07/29/18 14:55 07/30/18 05:03 Erythrocyte Sedimentation Rate 32 (0-15) White Blood Count 7.8 x10^3/uL (4.0-11.0) Red Blood Count 4.91 x10^6/uL (4.30-5.70) Hemoglobin 14.7 g/dL (13.0-17.5) Hematocrit 42.5 % (39.0-53.0) Mean Corpuscular Volume 87 fL (79-100) Mean Corpuscular Hemoglobin 30 pg (25-35) Mean Corpuscular Hemoglobin Concent 35 g/dL (31-37) Red Cell Distribution Width 14.8 % (11.5-14.5) Platelet Count 267 x10^3/uL (140-400) Neutrophils (%) (Auto) 62 % (31-73) Lymphocytes (%) (Auto) 26 % (24-48) Monocytes (%) (Auto) 8 % (0-9) Eosinophils (%) (Auto) 3 % (0-3) Basophils (%) (Auto) 1 % (0-3) Neutrophils # (Auto) 4.8 x10^3uL (1.8-7.7) Lymphocytes # (Auto) 2.0 x10^3/uL (1.0-4.8) Monocytes # (Auto) 0.6 x10^3/uL (0.0-1.1) Eosinophils # (Auto) 0.2 x10^3/uL (0.0-0.7) Basophils # (Auto) 0.1 x10^3/uL (0.0-0.2) Medications Current Medications Morphine Sulfate (Morphine Sulfate) 5 mg 1X ONCE IV Last administered on at 10:46; Start 07/27/18 at 10:15; Stop 07/27/18 at 10:16; Status DC Sodium Chloride 1,000 ml @ 1,000 mls/hr 1X ONCE IV Last administered on at 10:45; Start 07/27/18 at 10:15; Stop 07/27/18 at 11:14; Status DC Famotidine (Pepcid Vial) 20 mg 1X ONCE IVP Last administered on 07/27/18at 10: 46; Start 07/27/18 at 10:15; Stop 07/27/18 at 10:16; Status DC Iohexol (Omnipaque 300 Mg/ml) 75 ml 1X ONCE IV Last administered on 07/27/18at 11:33; Start 07/27/18 at 10:30; Stop 07/27/18 at 10:31; Status DC Info (CONTRAST GIVEN -- Rx MONITORING) 1 each PRN DAILY PRN MC SEE COMMENTS; Start 07/27/18 at 10:30; Stop 07/29/18 at 10:29; Status DC Ondansetron HCl (Zofran) 4 mg PRN Q8HRS PRN IV NAUSEA/VOMITING; Start 07/27/18 at 12:45; Stop 07/28/18 at 12:44; Status DC Morphine Sulfate (Morphine Sulfate) 4 mg PRN Q2HR PRN IV PAIN Last administered on 07/28/18 09:06; Start 07/27/18 at 12:45; Stop 07/28/18 at 12:44 ; Status DC Sodium Chloride 1,000 ml @ 125 mls/hr 1X ONCE IV Last administered on 12:55; Start 07/27/18 at 12:45; Stop 07/27/18 at 20:44; Status DC Metronidazole 100 ml @ 100 mls/hr Q8HRS IV Last administered on 07/30/18at 06: 05; Start 07/27/18 at 22:00 Ciprofloxacin/ Dextrose 200 ml @ 200 mls/hr BID IV Last administered on 09:01; Start 07/27/18 at 21:00 Metronidazole 100 ml @ 100 mls/hr ONCE ONCE IV Last administered on at 12:55; Start 07/27/18 at 12:45; Stop 07/27/18 at 13:44; Status DC Ciprofloxacin/ Dextrose 200 ml @ 200 mls/hr ONCE ONCE IV Last administered on 07/27/18at 12:55; Start 07/27/18 at 12:45; Stop 07/27/18 at 13:44; Status DC Zolpidem Tartrate (Ambien) 10 mg PRN QHS PRN PO INSOMNIA, MAY REPEAT IN 1HR Last administered on 07/29/18 21:45; Start 07/27/18 at 19:15 Nicotine (Nicoderm Cq 21mg) 1 patch PRN DAILY PRN TD SMOKING CESSATION Last administered on 07/29/18 11:04; Start 07/28/18 at 04:00 Morphine Sulfate (Morphine Sulfate) 4 mg PRN Q2HR PRN IV PAIN Last administered on 07/29/18at 23:43; Start 07/28/18 at 13:45 Lactobacillus Rhamnosus (Culturelle) 1 cap BID PO Last administered on 09:01; Start 07/28/18 at 21:00 Ondansetron HCl (Zofran) 4 mg PRN Q6HRS PRN IV NAUSEA/VOMITING Last administered on 07/28/18 19:25; Start 07/28/18 at 19:30 Enoxaparin Sodium (Lovenox 40mg Syringe) 40 mg Q24H SQ Last administered on at 16:49; Start 07/29/18 at 16:00 Lorazepam (Ativan) 0.5 mg TID PRN PRN PO ANXIETY / AGITATION Last administered on 07/30/18at 05:37; Start 07/29/18 at 20:30 Docusate Sodium (Colace) 100 mg DAILY PO Last administered on 07/30/18at 09:01; Start 07/30/18 at 09:00 Sennosides (Senna) 8.6 mg PRN BID PRN PO CONSTIPATION Last administered on 07/29at 21:45; Start 07/29/18 at 20:30 Acetaminophen (Tylenol) 650 mg PRN Q6HRS PRN PO MILD PAIN Last administered on 07/30/18at 04:13; Start 07/30/18 at 03:00 Active Scripts Active Flagyl (Metronidazole) 500 Mg Tablet 500 Mg PO TID 7 Days Ciprofloxacin Hcl 500 Mg Tablet 1 Tab PO BID [place] 5-325 Tablet (Acetaminophen/Hydrocodone Bitart) 1 Each Tablet 1-2 Each PO PRN Q6HRS PRN MDD 4 as needed for pain Hydrochlorothiazide Tablet (Hydrochlorothiazide) 25 Mg Tablet 1 Tab PO DAILY Aspirin 325 Mg Tablet 1 Tab PO TID PRN Reported Latuda (Lurasidone Hcl) 80 Mg Tablet 1 Tab PO DAILYWSUP Diazepam 10 Mg Tablet 10 Mg PO DAILY PRN Zolpidem Tartrate 10 Mg Tablet 10 Mg PO PRN QHS PRN Vitals/I & O Vital Sign - Last 24 Hours 07/29/18 07/29/18 07/29/18 07/29/18 11:00 15:00 19:00 20:00 Temp 98.6 98.6 98.4 98.6 98.6 98.4 Pulse 69 71 65 Resp 18 18 18 B/P (MAP) 132/93 (106) 114/69 (84) 116/65 (82) Pulse Ox 97 95 97 O2 Delivery Room Air Room Air Room Air Room Air 07/29/18 07/30/18 07/30/18 07/30/18 22:49 03:00 07:00 08:00 Temp 98.4 98.6 97.4 98.4 98.6 97.4 Pulse 70 78 65 Resp 18 18 18 B/P (MAP) 127/77 (94) 125/59 (81) 119/79 (92) Pulse Ox 96 96 96 O2 Delivery Room Air Room Air Room Air Room Air Intake and Output 07/29/18 07/29/18 07/30/18 15:01 23:01 07:01 Intake Total 400 ml Balance 400 ml CHARLA ROJAS MD Jul 30, 2018 10:59
[2018-07-30 11:00] VITALS: BP 109/78
[2018-07-30] MEDS: ENOXAPARIN 40 MG/0.4 ML SYRINGE. SQ SCH (15:14)
--- NOTE | 2018-07-30 17:04 | PDOC3 ---
Discharge Summary Date of Admission: Jul 27, 2018 Date of Discharge: Jul 30, 2018 Follow-Up: 3-5 days Admitting Diagnosis comment: discharge dx History of Present Illness ASSESSMENT AND PLAN: acute Diverticulitis. hx recurrent diverticulitis mild mucosal thickening identified in the proximal sigmoid colon at the site of inflammation probably due to underlying inflammation or neoplasm. Follow-up colonoscopy recommended after the acute episode is resolved. SEEN at bedside, resting comfortably , wants to go home today IV Flagyl, IV Levaquin, p.r.n. Zofran, p.r.n. morphine, not using x 24 hrs IV fluid support. GI. following Home meds, frequent labs. Vitals Vitals Vital Signs Date Time Temp Pulse Resp B/P (MAP) Pulse Ox O2 Delivery O2 Flow Rate FiO2 07/30/18 08:00 Room Air 07/30/18 07:00 97.4 65 18 119/79 (92) 96 97.4 Physical Exam Physical Exam GENERAL: awakens with flat affect, but pleasant. HEART: Normal S1, S2. LUNGS: Clear. ABDOMEN: Soft. Decreased bowel sounds, tender, little obese. EXTREMITIES: No edema. SKIN: No rash. ENDOCRINE: No thyromegaly. LYMPHATICS: No cervical nodes. HEMATOPOIETIC: No bruising. PSYCHIATRIC: He is depressed. General: Alert, Oriented X3, Cooperative, No acute distress, mild distress Heart: Regular rate, Normal S1, No murmurs Lungs: Clear Abdomen: Soft, No hepatosplenomegaly, No masses Extremities: No clubbing, No cyanosis, No tenderness/swelling Skin: No significant lesion FINAL DIAGNOSIS Problems Medical Problems: (1) Diverticulitis Status: Acute Brief Hospital Course Mr. Broussard is a 48 old [sex] who presented with [ acute diverticulitis] CONDITION AT DISCHARGE: Improved Discharge Medications Current Medications Morphine Sulfate (Morphine Sulfate) 5 mg 1X ONCE IV Last administered on at 10:46; Start 07/27/18 at 10:15; Stop 07/27/18 at 10:16; Status DC Sodium Chloride 1,000 ml @ 1,000 mls/hr 1X ONCE IV Last administered on at 10:45; Start 07/27/18 at 10:15; Stop 07/27/18 at 11:14; Status DC Famotidine (Pepcid Vial) 20 mg 1X ONCE IVP Last administered on 07/27/18at 10: 46; Start 07/27/18 at 10:15; Stop 07/27/18 at 10:16; Status DC Iohexol (Omnipaque 300 Mg/ml) 75 ml 1X ONCE IV Last administered on 07/27/18at 11:33; Start 07/27/18 at 10:30; Stop 07/27/18 at 10:31; Status DC Info (CONTRAST GIVEN -- Rx MONITORING) 1 each PRN DAILY PRN MC SEE COMMENTS; Start 07/27/18 at 10:30; Stop 07/29/18 at 10:29; Status DC Ondansetron HCl (Zofran) 4 mg PRN Q8HRS PRN IV NAUSEA/VOMITING; Start 07/27/18 at 12:45; Stop 07/28/18 at 12:44; Status DC Morphine Sulfate (Morphine Sulfate) 4 mg PRN Q2HR PRN IV PAIN Last administered on 07/28/18at 09:06; Start 07/27/18 at 12:45; Stop 07/28/18 at 12:44 ; Status DC Sodium Chloride 1,000 ml @ 125 mls/hr 1X ONCE IV Last administered on at 12:55; Start 07/27/18 at 12:45; Stop 07/27/18 at 20:44; Status DC Metronidazole 100 ml @ 100 mls/hr Q8HRS IV Last administered on 07/30/18at 15: 15; Start 07/27/18 at 22:00 Ciprofloxacin/ Dextrose 200 ml @ 200 mls/hr BID IV Last administered on at 09:01; Start 07/27/18 at 21:00 Metronidazole 100 ml @ 100 mls/hr ONCE ONCE IV Last administered on at 12:55; Start 07/27/18 at 12:45; Stop 07/27/18 at 13:44; Status DC Ciprofloxacin/ Dextrose 200 ml @ 200 mls/hr ONCE ONCE IV Last administered on 07/27/18at 12:55; Start 07/27/18 at 12:45; Stop 07/27/18 at 13:44; Status DC Zolpidem Tartrate (Ambien) 10 mg PRN QHS PRN PO INSOMNIA, MAY REPEAT IN 1HR Last administered on 07/29/18 21:45; Start 07/27/18 at 19:15 Nicotine (Nicoderm Cq 21mg) 1 patch PRN DAILY PRN TD SMOKING CESSATION Last administered on 07/29/18 11:04; Start 07/28/18 at 04:00 Morphine Sulfate (Morphine Sulfate) 4 mg PRN Q2HR PRN IV PAIN Last administered on 07/29/18 23:43; Start 07/28/18 at 13:45 Lactobacillus Rhamnosus (Culturelle) 1 cap BID PO Last administered on 09:01; Start 07/28/18 at 21:00 Ondansetron HCl (Zofran) 4 mg PRN Q6HRS PRN IV NAUSEA/VOMITING Last administered on 07/28/18 19:25; Start 07/28/18 at 19:30 Enoxaparin Sodium (Lovenox 40mg Syringe) 40 mg Q24H SQ Last administered on 15:14; Start 07/29/18 at 16:00 Lorazepam (Ativan) 0.5 mg TID PRN PRN PO ANXIETY / AGITATION Last administered on 07/30/18 05:37; Start 07/29/18 at 20:30 Docusate Sodium (Colace) 100 mg DAILY PO Last administered on 07/30/18 09:01; Start 07/30/18 at 09:00 Sennosides (Senna) 8.6 mg PRN BID PRN PO CONSTIPATION Last administered on 07/29 21:45; Start 07/29/18 at 20:30 Acetaminophen (Tylenol) 650 mg PRN Q6HRS PRN PO MILD PAIN Last administered on 07/30/18 04:13; Start 07/30/18 at 03:00 Active Scripts Active Flagyl (Metronidazole) 500 Mg Tablet 500 Mg PO TID 7 Days Ciprofloxacin Hcl 500 Mg Tablet 1 Tab PO BID [place] 5-325 Tablet (Acetaminophen/Hydrocodone Bitart) 1 Each Tablet 1-2 Each PO PRN Q6HRS PRN MDD 4 as needed for pain Hydrochlorothiazide Tablet (Hydrochlorothiazide) 25 Mg Tablet 1 Tab PO DAILY Aspirin 325 Mg Tablet 1 Tab PO TID PRN Reported Latuda (Lurasidone Hcl) 80 Mg Tablet 1 Tab PO DAILYWSUP Diazepam 10 Mg Tablet 10 Mg PO DAILY PRN Zolpidem Tartrate 10 Mg Tablet 10 Mg PO PRN QHS PRN Vital Signs Vital Signs Date Time Temp Pulse Resp B/P (MAP) Pulse Ox O2 Delivery O2 Flow Rate FiO2 07/30/18 11:00 98.1 75 18 109/78 (88) 95 Room Air 98.1 Labs Laboratory Tests Test 07/29/18 06:12 07/29/18 14:55 07/30/18 05:03 White Blood Count 7.4 x10^3/uL (4.0-11.0) 7.8 x10^3/uL (4.0-11.0) Red Blood Count 4.73 x10^6/uL (4.30-5.70) 4.91 x10^6/uL (4.30-5.70) Hemoglobin 14.2 g/dL (13.0-17.5) 14.7 g/dL (13.0-17.5) Hematocrit 41.7 % (39.0-53.0) 42.5 % (39.0-53.0) Mean Corpuscular Volume 88 fL (79-100) 87 fL (79-100) Mean Corpuscular Hemoglobin 30 pg (25-35) 30 pg (25-35) Mean Corpuscular Hemoglobin Concent 34 g/dL (31-37) 35 g/dL (31-37) Red Cell Distribution Width 14.7 % (11.5-14.5) 14.8 % (11.5-14.5) Platelet Count 247 x10^3/uL (140-400) 267 x10^3/uL (140-400) Sodium Level 141 mmol/L (136-145) Potassium Level 3.8 mmol/L (3.5-5.1) Chloride Level 104 mmol/L (98-107) Carbon Dioxide Level 30 mmol/L (21-32) Anion Gap 7 (6-14) Blood Urea Nitrogen 7 mg/dL (8-26) Creatinine 0.9 mg/dL (0.7-1.3) Estimated GFR (Cockcroft-Gault) 89.3 Glucose Level 117 mg/dL (70-99) Calcium Level 8.4 mg/dL (8.5-10.1) Erythrocyte Sedimentation Rate 32 (0-15) Neutrophils (%) (Auto) 62 % (31-73) Lymphocytes (%) (Auto) 26 % (24-48) Monocytes (%) (Auto) 8 % (0-9) Eosinophils (%) (Auto) 3 % (0-3) Basophils (%) (Auto) 1 % (0-3) Neutrophils # (Auto) 4.8 x10^3uL (1.8-7.7) Lymphocytes # (Auto) 2.0 x10^3/uL (1.0-4.8) Monocytes # (Auto) 0.6 x10^3/uL (0.0-1.1) Eosinophils # (Auto) 0.2 x10^3/uL (0.0-0.7) Basophils # (Auto) 0.1 x10^3/uL (0.0-0.2) Laboratory Tests Test 07/30/18 05:03 White Blood Count 7.8 x10^3/uL (4.0-11.0) Red Blood Count 4.91 x10^6/uL (4.30-5.70) Hemoglobin 14.7 g/dL (13.0-17.5) Hematocrit 42.5 % (39.0-53.0) Mean Corpuscular Volume 87 fL (79-100) Mean Corpuscular Hemoglobin 30 pg (25-35) Mean Corpuscular Hemoglobin Concent 35 g/dL (31-37) Red Cell Distribution Width 14.8 % (11.5-14.5) Platelet Count 267 x10^3/uL (140-400) Neutrophils (%) (Auto) 62 % (31-73) Lymphocytes (%) (Auto) 26 % (24-48) Monocytes (%) (Auto) 8 % (0-9) Eosinophils (%) (Auto) 3 % (0-3) Basophils (%) (Auto) 1 % (0-3) Neutrophils # (Auto) 4.8 x10^3uL (1.8-7.7) Lymphocytes # (Auto) 2.0 x10^3/uL (1.0-4.8) Monocytes # (Auto) 0.6 x10^3/uL (0.0-1.1) Eosinophils # (Auto) 0.2 x10^3/uL (0.0-0.7) Basophils # (Auto) 0.1 x10^3/uL (0.0-0.2) Allergies Allergies Coded Allergies Type Severity Reaction Last Updated Verified Penicillins Allergy Intermediate 07/28/18 Yes Disposition/Orders: D/C to Home Patient Instructions D/C PLANNING 34 MIN see GI IN 2-3 WEEKS, NO ALCOHOL CHARLA ROJAS MD Jul 30, 2018 17:04
--- NOTE | 2018-07-30 17:05 | DISCH ---
DISCHARGE INSTRUCTIONS Condition on Discharge Condition on Discharge: Stable Activity After Discharge Activity Instructions for Disc: Activity as tolerated Lifting Instructions after Dis: No heavy lifting, No pulling or pushing Exercise Instruction after Dis: Walk 10 min, 3 x per day Driving Instructions after Dis: Do not drive today Diet after Discharge Diet after Discharge: Regular Checks after Discharge Checks after discharge: Check blood press - daily Contacting the [facility] after DC Call your doctor for: If your condition worsens Warfarin Follow-Up Warfarin Follow UP: SEE GI IN 2 -3 WEEKS, PCP CHARLA RIGGINS MD Jul 30, 2018 17:05
[2018-07-30] MEDS ORDERED: DOCU-109 PO (17:07)
== END 2018-07-30 17:55 | disposition home or self-care (01) | DRG 392 ==
LOC: ER 09:52 → 4 NORTH 12:33
PROVIDERS: ADMIT Internal Medicine; ATTEND Internal Medicine
DX: K57.32 Diverticulitis of large intestine without perforation or abscess without bleeding (principal); I10 Essential (primary) hypertension; E78.5 Hyperlipidemia, unspecified; F32.9 Major depressive disorder, single episode, unspecified; F17.210 Nicotine dependence, cigarettes, uncomplicated; E78.00 Pure hypercholesterolemia, unspecified; Z82.49 Family history of ischemic heart disease and other diseases of the circulatory system; Z88.0 Allergy status to penicillin
CPT/HCPCS: 36415; 74177; 80048; 80053; 80307; 81001; 83690; 85025; 85027; 85651; 96361; 96365; 96368; 96375; G0480; J0744; J1650; J2270; J2405; J3490; J7030; Q9967; 99285-25; G0378

== ENCOUNTER 2018-08-20 08:54 | Inpatient (IN) | payer SELFPAY ==
[~2018-08-20] VITALS: Ht 175.3 cm; Wt 127.6 kg
[~2018-08-20 08:54] MED LIST changes: +DIAZEPAM10 MG PO; +DOCU-109 PO; +LURA80TA PO; +ZOLP10TA4 PO
[2018-08-20 09:21] LABS: BASO # 0.1 x10^3/uL (0.0-0.2); BASO % 1 % (0-3); EOS # 0.2 x10^3/uL (0.0-0.7); EOS % 2 % (0-3); HEMATOCRIT 42.1 % (39.0-53.0); HEMOGLOBIN 13.9 g/dL (13.0-17.5); LYMPH # 1.9 x10^3/uL (1.0-4.8); LYMPH % 17 % (24-48); MEAN CORPUSCULAR HEMOGLOBIN 29 pg (25-35); MEAN CORPUSCULAR HGB CONC 33 g/dL (31-37); MEAN CORPUSCULAR VOLUME 88 fL (79-100); MONO % 9 % (0-9); NEUT % 71 % (31-73); PLATELET COUNT 202 x10^3/uL (140-400); RED CELL DISTRIBUTION WIDTH 14.8 % (11.5-14.5); WHITE BLOOD COUNT 11.2 x10^3/uL (4.0-11.0)
[2018-08-20] MEDS ORDERED: KETOROLAC 30 MG/ML VIAL. IV ONE (09:30)
[2018-08-20] MEDS ORDERED: ONDANSETRON PF 4 MG/2 ML VIAL. IV ONE (09:30)
[2018-08-20] MEDS ORDERED: IV NORMAL SALINE 1000ML BAG 1,000 ML IV ONE (09:30)
[2018-08-20 09:31] LABS: CALCIUM 8.4 mg/dL (8.5-10.1); CREATININE 0.8 mg/dL (0.7-1.3); GFR 102.3; POTASSIUM 3.5 mmol/L (3.5-5.1)
[2018-08-20 09:37] LABS: ALBUMIN 3.2 g/dL (3.4-5.0); ALBUMIN/GLOBULIN RATIO 0.8 (1.0-1.7); TOTAL BILIRUBIN 0.4 mg/dL (0.2-1.0); TOTAL PROTEIN 7.1 g/dL (6.4-8.2)
[2018-08-20] MEDS ORDERED: CONTRAST GIVEN. MC PRN (10:15)
--- NOTE | 2018-08-20 10:25 | RAD ---
PQRS Compliance statement: One or more of the following individualized dose reduction techniques were utilized for this examination: 1. Automated exposure control. 2. Adjustment of the mA and/or kV according to patient size. 3. Use of iterative reconstruction technique. Indication:Worsening abdominal pain. TECHNIQUE: CT abdomen and pelvis with IV contrast with multiplanar reformats. COMPARISON: 07/27/2018 FINDINGS: Heart is normal in size. No pericardial or pleural effusion. Clear lung bases. Liver, spleen, gallbladder, pancreas, adrenals and right kidney are within normal limits. Punctate nonobstructing stone in the left kidney. Stable 1.3 cm hypoattenuating lesion in the medial aspect of the interpolar left kidney most likely a simple or minimally complicated cyst. No enlarged retroperitoneal or pelvic adenopathy. No free pelvic fluid or ascites. No bowel obstruction. Sigmoid and descending colon diverticulosis. Mild wall thickening seen of the mid descending colon with pericolonic inflammatory changes. No pneumoperitoneum. The prostate and seminal vesicles show no large mass. Urinary bladder is within normal limits. No suspicious bony lesion. IMPRESSION: 1. Sigmoid and descending colon diverticulosis with focal mid descending colon diverticulitis. 2. Punctate nonobstructing left renal stone. Indeterminate but likely a simple or minimally corticated cyst in the interpolar left kidney. Nonemergent ultrasound of the left kidney recommended. Electronically signed by: Golden Powers DO (08/20/2018 10:21 AM) [facility]
[2018-08-20] MEDS ORDERED: IOHEXOL 240 MG/ML 50ML VIAL. PO ONE (10:30)
[2018-08-20] MEDS ORDERED: IOHEXOL 300 MG/ML 100ML VIAL. IV ONE (10:30)
[2018-08-20] MEDS ORDERED: CIPROFLOXACIN 400MG PREMIX 200 ML IV ONE (11:00)
--- NOTE | 2018-08-20 11:06 | PDOC1 ---
History and Physical Date of Admission Date of Admission DATE: 08/20/18 TIME: 11:02 Identification/Chief Complaint Chief Complaint Diarrhea/Abdominal Pain Source Source: Patient History of Present Illness History of Present Illness 48 y/o male w/ PMHx recurrent diverticulitis who was seen in the ER in 06/2018 for abd pain and 3 weeks ago as well. He says he has diverticulitis, nausea, intractable abdominal pain in the LUQ and he was told he had a gallbladder problem previously and diverticulitis most recently. CT A/P showed diverticulosis with focal mid descending colon diverticulitis. In the meantime, he came back to the ER today w/ LLQ pain starting today. Pain is constant and stabbing, associated w/ nausea. Started on IV Cipro and Flagyl. He does have a h/o diverticulitis in either 2016 or 2017 @ [facility]. Says he needed IV antibiotics and talked with a surgeon about possibly needing a part of his colon removed. He denies reflux/heartburn, dysphagia, vomiting, hematemesis, hematochezia, melena, constipation, weight loss, or change in appetite. Occasional diarrhea. No previous EGD. Had a colonoscopy @ [facility] 3-4 years ago, recalls no significant findings. No liver or pancreas history. Past Medical History Cardiovascular: No pertinent hx Pulmonary: No pertinent hx GI: Diverticulosis Heme/Onc: No pertinent hx Hepatobiliary: No pertinent hx Psych: No pertinent hx Rheumatologic: No pertinent hx Infectious disease: No pertinent hx ENT: No pertinent hx Renal/: No pertinent hx Endocrine: No pertinent hx Dermatology: No pertinent hx Past Surgical History Past Surgical History: No pertinent history Family History Family History: Adopted Social History Smoke: 1 pack per day ALCOHOL: rare Drugs: None Current Medications Current Medications Current Medications Sodium Chloride 1,000 ml @ 1,000 mls/ hr 1X ONCE IV Last administered on 08/20at 09:28; Start 08/20/18 at 09:30; Stop 08/20/18 at 10:29; Status DC Ondansetron HCl (Zofran) 4 mg 1X ONCE IV Last administered on 08/20/18at 09:28 ; Start 08/20/18 at 09:30; Stop 08/20/18 at 09:31; Status DC Ketorolac Tromethamine (Toradol 30mg Vial) 30 mg 1X ONCE IV Last administered on 08/20/18at 09:28; Start 08/20/18 at 09:30; Stop 08/20/18 at 09:31; Status DC Iohexol (Omnipaque 300 Mg/ml) 75 ml 1X ONCE IV ; Start 08/20/18 at 10:30; Stop 08/20/18 at 10:31; Status DC Iohexol (Omnipaque 240 Mg/ml) 50 ml 1X ONCE PO ; Start 08/20/18 at 10:30; Stop 08/20/18 at 10:31; Status DC Info (CONTRAST GIVEN -- Rx MONITORING) 1 each PRN DAILY PRN MC SEE COMMENTS; Start 08/20/18 at 10:15; Stop 08/22/18 at 10:14 Fentanyl Citrate (Fentanyl 2ml Vial) 50 mcg PRN Q1HR PRN IV PAIN; Start at 11:00; Stop 08/21/18 at 10:59 Sodium Chloride 1,000 ml @ 125 mls/hr Q8H IV ; Start 08/20/18 at 12:00; Stop at 11:59 Metronidazole 100 ml @ 100 mls/hr Q12HR IV ; Start 08/20/18 at 11:00 Ciprofloxacin/ Dextrose 200 ml @ 200 mls/hr 1X ONCE IV ; Start 08/20/18 at 11: 00; Stop 08/20/18 at 11:59 Active Scripts Active Colace (Docusate Sodium) 100 Mg Capsule 100 Mg PO DAILY 30 Days Flagyl (Metronidazole) 500 Mg Tablet 500 Mg PO TID 7 Days Ciprofloxacin Hcl 500 Mg Tablet 1 Tab PO BID [place] 5-325 Tablet (Acetaminophen/Hydrocodone Bitart) 1 Each Tablet 1-2 Each PO PRN Q6HRS PRN MDD 4 as needed for pain Hydrochlorothiazide Tablet (Hydrochlorothiazide) 25 Mg Tablet 1 Tab PO DAILY Aspirin 325 Mg Tablet 1 Tab PO TID PRN Reported Latuda (Lurasidone Hcl) 80 Mg Tablet 1 Tab PO DAILYWSUP Diazepam 10 Mg Tablet 10 Mg PO DAILY PRN Zolpidem Tartrate 10 Mg Tablet 10 Mg PO PRN QHS PRN Allergies Allergies: Coded Allergies: Penicillins (Verified Allergy, Intermediate, 07/28/18) ROS General: YES: Fatigue, Malaise, Appetite; No: Chills, Night Sweats, Other PSYCHOLOGICAL ROS: YES: Anxiety; No: Behavioral Disorder, Concentration difficultie, Decreased libido, Depression, Disorientation, Hallucinations, Hostility, Irritablity, Memory difficulties, Mood Swings, Obsessive thoughts, Physical abuse, Sexual abuse, Sleep disturbances, Suicidal ideation, Other Eyes: No Blurry vision, No Decreased vision, No Double vision, No Dry eyes, No Excessive tearing, No Eye Pain, No Itchy Eyes, No Loss of vision, No Photophobia , No Scotomata, No Uses contacts, No Uses glasses, No Other HEENT: No: Heacaches, Visual Changes, Hearing change, Nasal congestion, Nasal discharge, Oral lesions, Sinus pain, Sore Throat, Epistaxis, Sneezing, Snoring, Tinnitus, Vertigo, Vocal changes, Other ALLERGY AND IMMUNOLOGY: No: Hives, Insect Bite Sensitivity, Itchy/Watery Eyes, Nasal Congestion, Post Nasal Drip, Seasonal Allergies, Other Hematological and Lymphatic: No: Bleeding Problems, Blood Clots, Blood Transfusions, Brusing, Night Sweats, Pallor, Swollen Lymph Nodes, Other ENDOCRINE: No: Breast Changes, Galactorrhea, Hair Pattern Changes, Hot Flashes , Malaise/lethargy, Mood Swings, Palpitations, Polydipsia/polyuria, Skin Changes , Temperature Intolerance, Unexpected Weight Changes, Other Breast: No New/Changing Breast Lumps, No Nipple changes, No Nipple discharge, No Other Respiratory: No: Cough, Hemoptysis, Orthopnea, Pleuritic Pain, Shortness of breath, SOB with excertion, Sputum Changes, Stridor, Tachypnea, Wheezing, Other Cardiovascular: No Chest Pain, No Palpitations, No Orthopnea, No Paroxysmal Noc. Dyspnea, No Edema, No Lt Headedness, No Other Gastrointestinal: Yes Nausea, Yes Vomiting, Yes Abdominal Pain; No Diarrhea, No Constipation, No Melena, No Hematochezia, No Other Genitourinary: No Dysuria, No Frequency, No Incontinence, No Hematuria, No Retention, No Discharge, No Urgency, No Pain, No Flank Pain, No Other, No , No , No , No , No , No , No Musculoskeletal: No Gait Disturbance, No Joint Pain, No Joint Stiffness, No Joint Swelling, No Muscle Pain, No Muscular Weakness, No Pain In:, No Swelling In:, No Other Neurological: No Behavorial Changes, No Bowel/Bladder ControlChng, No Confusion , No Dizziness, No Gait Disturbance, No Headaches, No Impaired Coord/balance, No Memory Loss, No Numbness/Tingling, No Seizures, No Speech Problems, No Tremors, No Visual Changes, No Weakness, No Other Skin: No Dry Skin, No Eczema, No Hair Changes, No Lumps, No Mole Changes, No Mottling, No Nail Changes, No Pruritus, No Rash, No Skin Lesion Changes, No Other, No Acne Physical Exam General: Alert, Oriented X3, Cooperative, No acute distress HEENT: Atraumatic, PERRLA, EOMI, Mucous membr. moist/pink Lungs: Clear to auscultation, Normal air movement Heart: S1S2, RRR, no gallops, no murmurs Abdomen: Normal bowel sounds, Soft, No hepatosplenomegaly, No masses, Other ( LLQ tender) Rectal Exam: not examined Extremities: No clubbing, No cyanosis, No edema, Normal pulses, No tenderness/ swelling Skin: No rashes, No breakdown, No significant lesion Neuro: Normal gait, Normal speech, Strength at 5/5 X4 ext, Normal tone, Sensation intact, Cranial nerves 3-12 NL, Reflexes 2+ Psych/Mental Status: Mental status NL, Mood NL Vitals Vitals Vital Signs Date Time Temp Pulse Resp B/P (MAP) Pulse Ox O2 Delivery O2 Flow Rate FiO2 08/20/18 08:59 98.3 96 20 130/79 (96) 98 Room Air 98.3 Labs Labs Laboratory Tests Test 08/20/18 09:10 White Blood Count 11.2 x10^3/uL (4.0-11.0) Red Blood Count 4.80 x10^6/uL (4.30-5.70) Hemoglobin 13.9 g/dL (13.0-17.5) Hematocrit 42.1 % (39.0-53.0) Mean Corpuscular Volume 88 fL (79-100) Mean Corpuscular Hemoglobin 29 pg (25-35) Mean Corpuscular Hemoglobin Concent 33 g/dL (31-37) Red Cell Distribution Width 14.8 % (11.5-14.5) Platelet Count 202 x10^3/uL (140-400) Neutrophils (%) (Auto) 71 % (31-73) Lymphocytes (%) (Auto) 17 % (24-48) Monocytes (%) (Auto) 9 % (0-9) Eosinophils (%) (Auto) 2 % (0-3) Basophils (%) (Auto) 1 % (0-3) Neutrophils # (Auto) 8.0 x10^3uL (1.8-7.7) Lymphocytes # (Auto) 1.9 x10^3/uL (1.0-4.8) Monocytes # (Auto) 1.0 x10^3/uL (0.0-1.1) Eosinophils # (Auto) 0.2 x10^3/uL (0.0-0.7) Basophils # (Auto) 0.1 x10^3/uL (0.0-0.2) Sodium Level 141 mmol/L (136-145) Potassium Level 3.5 mmol/L (3.5-5.1) Chloride Level 105 mmol/L (98-107) Carbon Dioxide Level 27 mmol/L (21-32) Anion Gap 9 (6-14) Blood Urea Nitrogen 16 mg/dL (8-26) Creatinine 0.8 mg/dL (0.7-1.3) Estimated GFR (Cockcroft-Gault) 102.3 BUN/Creatinine Ratio 20 (6-20) Glucose Level 182 mg/dL (70-99) Calcium Level 8.4 mg/dL (8.5-10.1) Total Bilirubin 0.4 mg/dL (0.2-1.0) Aspartate Amino Transf (AST/SGOT) 12 U/L (15-37) Alanine Aminotransferase (ALT/SGPT) 16 U/L (16-63) Alkaline Phosphatase 71 U/L (46-116) Total Protein 7.1 g/dL (6.4-8.2) Albumin 3.2 g/dL (3.4-5.0) Albumin/Globulin Ratio 0.8 (1.0-1.7) Amylase Level 39 U/L (25-115) Lipase 82 U/L (73-393) Laboratory Tests Test 08/20/18 09:10 White Blood Count 11.2 x10^3/uL (4.0-11.0) Red Blood Count 4.80 x10^6/uL (4.30-5.70) Hemoglobin 13.9 g/dL (13.0-17.5) Hematocrit 42.1 % (39.0-53.0) Mean Corpuscular Volume 88 fL (79-100) Mean Corpuscular Hemoglobin 29 pg (25-35) Mean Corpuscular Hemoglobin Concent 33 g/dL (31-37) Red Cell Distribution Width 14.8 % (11.5-14.5) Platelet Count 202 x10^3/uL (140-400) Neutrophils (%) (Auto) 71 % (31-73) Lymphocytes (%) (Auto) 17 % (24-48) Monocytes (%) (Auto) 9 % (0-9) Eosinophils (%) (Auto) 2 % (0-3) Basophils (%) (Auto) 1 % (0-3) Neutrophils # (Auto) 8.0 x10^3uL (1.8-7.7) Lymphocytes # (Auto) 1.9 x10^3/uL (1.0-4.8) Monocytes # (Auto) 1.0 x10^3/uL (0.0-1.1) Eosinophils # (Auto) 0.2 x10^3/uL (0.0-0.7) Basophils # (Auto) 0.1 x10^3/uL (0.0-0.2) Sodium Level 141 mmol/L (136-145) Potassium Level 3.5 mmol/L (3.5-5.1) Chloride Level 105 mmol/L (98-107) Carbon Dioxide Level 27 mmol/L (21-32) Anion Gap 9 (6-14) Blood Urea Nitrogen 16 mg/dL (8-26) Creatinine 0.8 mg/dL (0.7-1.3) Estimated GFR (Cockcroft-Gault) 102.3 BUN/Creatinine Ratio 20 (6-20) Glucose Level 182 mg/dL (70-99) Calcium Level 8.4 mg/dL (8.5-10.1) Total Bilirubin 0.4 mg/dL (0.2-1.0) Aspartate Amino Transf (AST/SGOT) 12 U/L (15-37) Alanine Aminotransferase (ALT/SGPT) 16 U/L (16-63) Alkaline Phosphatase 71 U/L (46-116) Total Protein 7.1 g/dL (6.4-8.2) Albumin 3.2 g/dL (3.4-5.0) Albumin/Globulin Ratio 0.8 (1.0-1.7) Amylase Level 39 U/L (25-115) Lipase 82 U/L (73-393) Images Images CT Abd/pelvis - 1. Sigmoid and descending colon diverticulosis with focal mid descending colon diverticulitis. 2. Punctate nonobstructing left renal stone. Indeterminate but likely a simple or minimally corticated cyst in the interpolar left kidney. Nonemergent ultrasound of the left kidney recommended. VTE Prophylaxis Ordered VTE Prophylaxis Devices: Yes VTE Pharmacological Prophylaxi: No Assessment/Plan Assessment/Plan A/P: LLQ pain - 2/2 diverticulitis, mild leukocytosis. kiki Estrada. Consult GI and surgery Sepsis - meets SIRS criteria with diverticulitis, given antibiotics and fluids. F/u H/o diverticulitis - required intpt treatment in the past w/ discussion for elective colon resection. Will consult surgery as well Abnormal CTs - suggestive of sigmoid diverticulitis, other findings as above, will get left renal US as well Smoker - nicotine patch Elevated glucose - screen for DM, sliding scale while in house FEN - NPO PPX - scds FULL CODE Inpatient for recurrent diverticulitis, will need likely 48 hours BLAINE MARQUEZ MD Aug 20, 2018 11:06
[2018-08-20] MEDS: IV NORMAL SALINE 1000ML BAG 1,000 ML IV SCH ×2 (11:18→18:15)
[2018-08-20] MEDS: fentaNYL PF VIAL 100 MCG/2 ML VIAL IV PRN ×2 (11:19→12:55)
[2018-08-20 12:20] VITALS: BP 137/81
--- NOTE | 2018-08-20 12:30 | NUR ---
This patient arrived to the unit via gurney was able to walk to the restroom with no assist. IVF running, call light within reach of patient, this nurse will continue to monitor.
[2018-08-20 12:51] LABS: BILIRUBIN,URINE NEGATIVE (NEG); CLARITY,URINE CLEAR; COLOR,URINE YELLOW; NITRITE,URINE NEGATIVE (NEG); PROTEIN,URINE NEGATIVE (NEG-TRACE); UROBILINOGEN,URINE 0.2 mg/dL (0.2 mg/dL)
[2018-08-20 13:07] LABS: BACTERIA,URINE FEW /HPF (0-FEW); SQUAMOUS EPITHELIAL CELL,UR OCC /LPF
[2018-08-20] MEDS ORDERED: DEXTROSE 50% 25 GM / 50ML DISP.SYRIN. IV PRN (14:00)
[2018-08-20] MEDS ORDERED: ONDANSETRON PF 4 MG/2 ML VIAL. IV PRN (14:00)
[2018-08-20] MEDS ORDERED: ASPIRIN 325 MG TABLET PO PRN (14:00)
[2018-08-20] MEDS ORDERED: HYDROmorphone 2 MG/ML VIAL IV PRN (14:00)
[2018-08-20] MEDS ORDERED: HYDROcodone/APAP 5/325MG 1 TAB TABLET PO PRN (14:00)
[2018-08-20] MEDS ORDERED: LORazepam 0.5 MG TABLET PO PRN (14:00)
--- NOTE | 2018-08-20 14:00 | NUR ---
This patient is complaining of pain, paged MD orders received this nurse will continue to monitor.
--- NOTE | 2018-08-20 14:06 | PDOC ---
G I PROGRESS NOTE Reason for Follow-up Recurrent diverticulitis Subjective Pain partially controlled with morphine/worried about need for tolentino catheter if surgery needed Physical Exam Lungs clear CV S1 S2 ABD +BS, soft, + LLQ tenderness to palpation Review of Relevant I have reviewed the following items ani (where applicable) has been applied. Labs Laboratory Tests Test 08/20/18 09:10 08/20/18 10:10 White Blood Count 11.2 x10^3/uL (4.0-11.0) Red Blood Count 4.80 x10^6/uL (4.30-5.70) Hemoglobin 13.9 g/dL (13.0-17.5) Hematocrit 42.1 % (39.0-53.0) Mean Corpuscular Volume 88 fL (79-100) Mean Corpuscular Hemoglobin 29 pg (25-35) Mean Corpuscular Hemoglobin Concent 33 g/dL (31-37) Red Cell Distribution Width 14.8 % (11.5-14.5) Platelet Count 202 x10^3/uL (140-400) Neutrophils (%) (Auto) 71 % (31-73) Lymphocytes (%) (Auto) 17 % (24-48) Monocytes (%) (Auto) 9 % (0-9) Eosinophils (%) (Auto) 2 % (0-3) Basophils (%) (Auto) 1 % (0-3) Neutrophils # (Auto) 8.0 x10^3uL (1.8-7.7) Lymphocytes # (Auto) 1.9 x10^3/uL (1.0-4.8) Monocytes # (Auto) 1.0 x10^3/uL (0.0-1.1) Eosinophils # (Auto) 0.2 x10^3/uL (0.0-0.7) Basophils # (Auto) 0.1 x10^3/uL (0.0-0.2) Sodium Level 141 mmol/L (136-145) Potassium Level 3.5 mmol/L (3.5-5.1) Chloride Level 105 mmol/L (98-107) Carbon Dioxide Level 27 mmol/L (21-32) Anion Gap 9 (6-14) Blood Urea Nitrogen 16 mg/dL (8-26) Creatinine 0.8 mg/dL (0.7-1.3) Estimated GFR (Cockcroft-Gault) 102.3 BUN/Creatinine Ratio 20 (6-20) Glucose Level 182 mg/dL (70-99) Calcium Level 8.4 mg/dL (8.5-10.1) Total Bilirubin 0.4 mg/dL (0.2-1.0) Aspartate Amino Transf (AST/SGOT) 12 U/L (15-37) Alanine Aminotransferase (ALT/SGPT) 16 U/L (16-63) Alkaline Phosphatase 71 U/L (46-116) Total Protein 7.1 g/dL (6.4-8.2) Albumin 3.2 g/dL (3.4-5.0) Albumin/Globulin Ratio 0.8 (1.0-1.7) Amylase Level 39 U/L (25-115) Lipase 82 U/L (73-393) Urine Collection Type Void Urine Color Yellow Urine Clarity Clear Urine pH 6.0 Urine Specific [place] >=1.030 Urine Protein Negative mg/dL (NEG-TRACE) Urine Glucose (UA) Negative mg/dL (NEG) Urine Ketones (Stick) Negative mg/dL (NEG) Urine Blood Negative (NEG) Urine Nitrite Negative (NEG) Urine Bilirubin Negative (NEG) Urine Urobilinogen Dipstick 0.2 mg/dL (0.2 mg/dL) Urine Leukocyte Esterase Negative (NEG) Urine RBC 1-2 /HPF (0-2) Urine WBC 1-4 /HPF (0-4) Urine Squamous Epithelial Cells Occ /LPF Urine Bacteria Few /HPF (0-FEW) Urine Mucus Mod /LPF Laboratory Tests Test 08/20/18 09:10 08/20/18 10:10 White Blood Count 11.2 x10^3/uL (4.0-11.0) Red Blood Count 4.80 x10^6/uL (4.30-5.70) Hemoglobin 13.9 g/dL (13.0-17.5) Hematocrit 42.1 % (39.0-53.0) Mean Corpuscular Volume 88 fL (79-100) Mean Corpuscular Hemoglobin 29 pg (25-35) Mean Corpuscular Hemoglobin Concent 33 g/dL (31-37) Red Cell Distribution Width 14.8 % (11.5-14.5) Platelet Count 202 x10^3/uL (140-400) Neutrophils (%) (Auto) 71 % (31-73) Lymphocytes (%) (Auto) 17 % (24-48) Monocytes (%) (Auto) 9 % (0-9) Eosinophils (%) (Auto) 2 % (0-3) Basophils (%) (Auto) 1 % (0-3) Neutrophils # (Auto) 8.0 x10^3uL (1.8-7.7) Lymphocytes # (Auto) 1.9 x10^3/uL (1.0-4.8) Monocytes # (Auto) 1.0 x10^3/uL (0.0-1.1) Eosinophils # (Auto) 0.2 x10^3/uL (0.0-0.7) Basophils # (Auto) 0.1 x10^3/uL (0.0-0.2) Sodium Level 141 mmol/L (136-145) Potassium Level 3.5 mmol/L (3.5-5.1) Chloride Level 105 mmol/L (98-107) Carbon Dioxide Level 27 mmol/L (21-32) Anion Gap 9 (6-14) Blood Urea Nitrogen 16 mg/dL (8-26) Creatinine 0.8 mg/dL (0.7-1.3) Estimated GFR (Cockcroft-Gault) 102.3 BUN/Creatinine Ratio 20 (6-20) Glucose Level 182 mg/dL (70-99) Calcium Level 8.4 mg/dL (8.5-10.1) Total Bilirubin 0.4 mg/dL (0.2-1.0) Aspartate Amino Transf (AST/SGOT) 12 U/L (15-37) Alanine Aminotransferase (ALT/SGPT) 16 U/L (16-63) Alkaline Phosphatase 71 U/L (46-116) Total Protein 7.1 g/dL (6.4-8.2) Albumin 3.2 g/dL (3.4-5.0) Albumin/Globulin Ratio 0.8 (1.0-1.7) Amylase Level 39 U/L (25-115) Lipase 82 U/L (73-393) Urine Collection Type Void Urine Color Yellow Urine Clarity Clear Urine pH 6.0 Urine Specific [place] >=1.030 Urine Protein Negative mg/dL (NEG-TRACE) Urine Glucose (UA) Negative mg/dL (NEG) Urine Ketones (Stick) Negative mg/dL (NEG) Urine Blood Negative (NEG) Urine Nitrite Negative (NEG) Urine Bilirubin Negative (NEG) Urine Urobilinogen Dipstick 0.2 mg/dL (0.2 mg/dL) Urine Leukocyte Esterase Negative (NEG) Urine RBC 1-2 /HPF (0-2) Urine WBC 1-4 /HPF (0-4) Urine Squamous Epithelial Cells Occ /LPF Urine Bacteria Few /HPF (0-FEW) Urine Mucus Mod /LPF Medications Current Medications Sodium Chloride 1,000 ml @ 1,000 mls/ hr 1X ONCE IV Last administered on 08/20at 09:28; Start 08/20/18 at 09:30; Stop 08/20/18 at 10:29; Status DC Ondansetron HCl (Zofran) 4 mg 1X ONCE IV Last administered on 08/20/18at 09:28 ; Start 08/20/18 at 09:30; Stop 08/20/18 at 09:31; Status DC Ketorolac Tromethamine (Toradol 30mg Vial) 30 mg 1X ONCE IV Last administered on 08/20/18at 09:28; Start 08/20/18 at 09:30; Stop 08/20/18 at 09:31; Status DC Iohexol (Omnipaque 300 Mg/ml) 75 ml 1X ONCE IV ; Start 08/20/18 at 10:30; Stop 08/20/18 at 10:31; Status DC Iohexol (Omnipaque 240 Mg/ml) 50 ml 1X ONCE PO ; Start 08/20/18 at 10:30; Stop 08/20/18 at 10:31; Status DC Info (CONTRAST GIVEN -- Rx MONITORING) 1 each PRN DAILY PRN MC SEE COMMENTS; Start 08/20/18 at 10:15; Stop 08/22/18 at 10:14 Fentanyl Citrate (Fentanyl 2ml Vial) 50 mcg PRN Q1HR PRN IV PAIN Last administered on 08/20/18at 12:55; Start 08/20/18 at 11:00; Stop 08/20/18 at 13:56 ; Status DC Sodium Chloride 1,000 ml @ 125 mls/hr Q8H IV Last administered on 08/20/18at 11 :18; Start 08/20/18 at 12:00; Stop 08/21/18 at 11:59 Metronidazole 100 ml @ 100 mls/hr Q12HR IV Last administered on 08/20/18at 11: 19; Start 08/20/18 at 11:00 Ciprofloxacin/ Dextrose 200 ml @ 200 mls/hr 1X ONCE IV Last administered on at 12:50; Start 08/20/18 at 11:00; Stop 08/20/18 at 11:59; Status DC Ketorolac Tromethamine (Toradol 30mg Vial) 30 mg PRN Q6HRS PRN IV PAIN; Start 08/20/18 at 14:00; Stop 08/25/18 at 13:59 Hydromorphone HCl (Dilaudid) 0.5 mg PRN Q4HRS PRN IV PAIN; Start 08/20/18 at 14 :00 Ondansetron HCl (Zofran) 4 mg PRN Q6HRS PRN IV NAUSEA/VOMITING; Start 08/20/18 at 14:00 Acetaminophen/ Hydrocodone Bitart (Lortab 5/325) 1 tab PRN Q6HRS PRN PO PAIN; Start 08/20/18 at 14:00 Aspirin (Tia Aspirin) 325 mg PRN TID PRN PO HEADACHE; Start 08/20/18 at 14:00 Docusate Sodium (Colace) 100 mg DAILY PO ; Start 08/20/18 at 15:00 Hydrochlorothiazide (Hydrodiuril) 25 mg DAILY PO ; Start 08/20/18 at 15:00 Non-Formulary Medication (Lurasidone Hcl (Latuda)) 1 tab DAILYWSUP PO ; Start at 17:00; Status UNV Zolpidem Tartrate (Ambien) 5 mg PRN QHS PRN PO INSOMNIA, MAY REPEAT X1; Start 08/20/18 at 20:00 Lorazepam (Ativan) 0.5 mg PRN Q8HRS PRN PO ANXIETY / AGITATION; Start 08/20/18 at 14:00 Insulin Human Lispro (HumaLOG) 0-5 UNITS Q6HRS SQ ; Start 08/20/18 at 18:00; Status UNV Dextrose (Dextrose 50%-Water Syringe) 12.5 gm PRN Q15MIN PRN IV SEE COMMENTS; Start 08/20/18 at 14:00; Status UNV Active Scripts Active Colace (Docusate Sodium) 100 Mg Capsule 100 Mg PO DAILY 30 Days [place] 5-325 Tablet (Acetaminophen/Hydrocodone Bitart) 1 Each Tablet 1-2 Each PO PRN Q6HRS PRN MDD 4 as needed for pain Hydrochlorothiazide Tablet (Hydrochlorothiazide) 25 Mg Tablet 1 Tab PO DAILY Aspirin 325 Mg Tablet 1 Tab PO TID PRN Reported Latuda (Lurasidone Hcl) 80 Mg Tablet 1 Tab PO DAILYWSUP Diazepam 10 Mg Tablet 10 Mg PO DAILY PRN Zolpidem Tartrate 10 Mg Tablet 10 Mg PO PRN QHS PRN Vitals/I & O Vital Sign - Last 24 Hours 08/20/18 08/20/18 08/20/18 08:59 12:20 12:55 Temp 98.3 97.4 98.3 97.4 Pulse 96 80 Resp 20 18 B/P (MAP) 130/79 (96) 137/81 (99) Pulse Ox 98 98 98 O2 Delivery Room Air Room Air Room Air Problem List Problems Medical Problems: (1) Diverticulitis Status: Acute Assessment LLQ abd pain- with diverticulitis, medical therapy for now with antibiotics o/p colonoscopy to asess anatomy patient to considder surgical resection with third attack in less than a year. COURT OZUNA MD Aug 20, 2018 14:06
[2018-08-20 15:00] VITALS: BP 126/79
[2018-08-20] MEDS ORDERED: POTASSIUM CHLORIDE 20 MEQ TABLET.ER. PO ONE (15:00)
--- NOTE | 2018-08-20 15:20 | RAD ---
Indication: Mass on CT. TECHNIQUE: Ultrasound of the left kidney COMPARISON: Same day CT abdomen pelvis FINDINGS: The left kidney measures 13.3 x 6.4 x 6.8 cm without hydronephrosis. There is a 1.6 x 1.1 x 1.1 cm simple appearing cyst in the interpolar region of the left kidney that most likely corresponds to abnormality seen on the CT. Additional 0.7 x 0.7 x 0.7 cm simple cyst in the upper pole of the left kidney also seen on same-day CT. IMPRESSION: Couple of simple appearing cysts that corresponds to the findings on CT. Electronically signed by: Golden Powers DO (08/20/2018 3:15 PM) [facility]
[2018-08-20] MEDS: hydroCHLOROthiazide 25 MG TABLET PO SCH (15:25)
[2018-08-20] MEDS: NICOTINE 21MG PATCH. TD SCH (15:25)
[2018-08-20] MEDS: DOCUSATE SODIUM 100 MG CAPSULE. PO SCH (15:25)
--- NOTE | 2018-08-20 16:54 | PHYS DOC ---
Past Medical History Past Medical History: Diverticulitis, Gallstones, High Cholesterol, Hypertension Past Surgical History: No Surgical History Alcohol Use: Rarely Drug Use: None Adult General Chief Complaint Chief Complaint: GI PROBLEM HPI HPI Patient is a 48 year old male who presents with abdominal pain to the left with a history of diverticulitis. The patient states that he was recently admitted to the hospital with a recurrence of his diverticulitis. He states the pain is cramping and nothing relieves it. He denies vomiting, constipation or diarrhea. He denies bloody stool. He states that he had made dietary changes and doesn't understand why this keeps returning. The patient states that he might need to surgery but he is waiting for his Medicaid to come into effect. Review of Systems Review of Systems Constitutional: Denies fever or chills [] Respiratory: Denies cough or shortness of breath [] Cardiovascular: No additional information not addressed in HPI [] GI: See history of present illness Musculoskeletal: Denies back pain or joint pain [] Integument: Denies rash or skin lesions [] Neurologic: Denies headache, focal weakness or sensory changes [] Endocrine: Denies polyuria or polydipsia [] All other systems were reviewed and found to be within normal limits, except as documented in this note. Current Medications Current Medications Current Medications Medications (Trade) Dose Ordered Sig/[facility] Start Time Stop Time Status Last Admin Dose Admin Info (CONTRAST GIVEN -- Rx MONITORING) 1 each PRN DAILY PRN 08/20/18 10:15 08/22/18 10:14 Iohexol (Omnipaque 240 Mg/ml) 50 ml 1X ONCE 08/20/18 10:30 08/20/18 10:31 DC Iohexol (Omnipaque 300 Mg/ml) 75 ml 1X ONCE 08/20/18 10:30 08/20/18 10:31 DC Ketorolac Tromethamine (Toradol 30mg Vial) 30 mg 1X ONCE 08/20/18 09:30 08/20/18 09:31 DC 08/20/18 09:28 30 MG Ondansetron HCl (Zofran) 4 mg 1X ONCE 08/20/18 09:30 08/20/18 09:31 DC 08/20/18 09:28 4 MG Sodium Chloride 1,000 ml @ 1,000 mls/ hr 1X ONCE 08/20/18 09:30 08/20/18 10:29 DC 08/20/18 09:28 1,000 MLS/HR Allergies Allergies Allergies Coded Allergies Type Severity Reaction Last Updated Verified Penicillins Allergy Intermediate 07/28/18 Yes Physical Exam Physical Exam Constitutional: Well developed, well nourished, no acute distress, non-toxic appearance. [] Cardiovascular:Heart rate regular rhythm, no murmur [] Lungs & Thorax: Bilateral breath sounds clear to auscultation [] Abdomen: Bowel sounds normal, firm, tenderness to left mid quadrant with guarding, no masses, no pulsatile masses. [] Skin: Warm, dry, no erythema, no rash. [] Back: No tenderness, no CVA tenderness. [] Extremities: No tenderness, no cyanosis, no clubbing, ROM intact, no edema. [] Neurologic: Alert and oriented X 3, normal motor function, normal sensory function, no focal deficits noted. [] Psychologic: Affect normal, judgement normal, mood normal. [] Current Patient Data Vital Signs Vital Signs Date Time Temp Pulse Resp B/P (MAP) Pulse Ox O2 Delivery O2 Flow Rate FiO2 08/20/18 08:59 98.3 96 20 130/79 (96) 98 Room Air 98.3 Lab Values Laboratory Tests Test 08/20/18 09:10 08/20/18 10:10 White Blood Count 11.2 x10^3/uL (4.0-11.0) H Red Blood Count 4.80 x10^6/uL (4.30-5.70) Hemoglobin 13.9 g/dL (13.0-17.5) Hematocrit 42.1 % (39.0-53.0) Mean Corpuscular Volume 88 fL (79-100) Mean Corpuscular Hemoglobin 29 pg (25-35) Mean Corpuscular Hemoglobin Concent 33 g/dL (31-37) Red Cell Distribution Width 14.8 % (11.5-14.5) H Platelet Count 202 x10^3/uL (140-400) Neutrophils (%) (Auto) 71 % (31-73) Lymphocytes (%) (Auto) 17 % (24-48) L Monocytes (%) (Auto) 9 % (0-9) Eosinophils (%) (Auto) 2 % (0-3) Basophils (%) (Auto) 1 % (0-3) Neutrophils # (Auto) 8.0 x10^3uL (1.8-7.7) H Lymphocytes # (Auto) 1.9 x10^3/uL (1.0-4.8) Monocytes # (Auto) 1.0 x10^3/uL (0.0-1.1) Eosinophils # (Auto) 0.2 x10^3/uL (0.0-0.7) Basophils # (Auto) 0.1 x10^3/uL (0.0-0.2) Sodium Level 141 mmol/L (136-145) Potassium Level 3.5 mmol/L (3.5-5.1) Chloride Level 105 mmol/L (98-107) Carbon Dioxide Level 27 mmol/L (21-32) Anion Gap 9 (6-14) Blood Urea Nitrogen 16 mg/dL (8-26) Creatinine 0.8 mg/dL (0.7-1.3) Estimated GFR (Cockcroft-Gault) 102.3 BUN/Creatinine Ratio 20 (6-20) Glucose Level 182 mg/dL (70-99) H Calcium Level 8.4 mg/dL (8.5-10.1) L Total Bilirubin 0.4 mg/dL (0.2-1.0) Aspartate Amino Transferase (AST) 12 U/L (15-37) L Alanine Aminotransferase (ALT) 16 U/L (16-63) Alkaline Phosphatase 71 U/L (46-116) Total Protein 7.1 g/dL (6.4-8.2) Albumin 3.2 g/dL (3.4-5.0) L Albumin/Globulin Ratio 0.8 (1.0-1.7) L Amylase Level 39 U/L (25-115) Lipase 82 U/L (73-393) Urine Collection Type Void Urine Color Yellow Urine Clarity Clear Urine pH 6.0 Urine Specific [place] >=1.030 Urine Protein Negative mg/dL (NEG-TRACE) Urine Glucose (UA) Negative mg/dL (NEG) Urine Ketones (Stick) Negative mg/dL (NEG) Urine Blood Negative (NEG) Urine Nitrite Negative (NEG) Urine Bilirubin Negative (NEG) Urine Urobilinogen Dipstick 0.2 mg/dL (0.2 mg/dL) Urine Leukocyte Esterase Negative (NEG) Urine RBC 1-2 /HPF (0-2) Urine WBC 1-4 /HPF (0-4) Urine Squamous Epithelial Cells Occ /LPF Urine Bacteria Few /HPF (0-FEW) Urine Mucus Mod /LPF Laboratory Tests 08/20/18 09:10 Laboratory Tests 08/20/18 09:10 EKG EKG [] Radiology/Procedures Radiology/Procedures []PATIENT: SHIRA CHEUNG CACCOUNT: [id number]#: [id number] : 1970 LOCATION: ER AGE: 48 SEX: M EXAM STATUS: REG ER ORD. PHYSICIAN: RUSTY EUBANKS APRN REASON: patient states worsening abdominal pain PROCEDURE: CT ABD PELV W/ORAL&IV CONTRAST PQRS Compliance statement: One or more of the following individualized dose reduction techniques were utilized for this examination: 1. Automated exposure control. 2. Adjustment of the mA and/or kV according to patient size. 3. Use of iterative reconstruction technique. Indication:Worsening abdominal pain. TECHNIQUE: CT abdomen and pelvis with IV contrast with multiplanar reformats. COMPARISON: 07/27/2018 FINDINGS: Heart is normal in size. No pericardial or pleural effusion. Clear lung bases. Liver, spleen, gallbladder, pancreas, adrenals and right kidney are within normal limits. Punctate nonobstructing stone in the left kidney. Stable 1.3 cm hypoattenuating lesion in the medial aspect of the interpolar left kidney most likely a simple or minimally complicated cyst. No enlarged retroperitoneal or pelvic adenopathy. No free pelvic fluid or ascites. No bowel obstruction. Sigmoid and descending colon diverticulosis. Mild wall thickening seen of the mid descending colon with pericolonic inflammatory changes. No pneumoperitoneum. The prostate and seminal vesicles show no large mass. Urinary bladder is within normal limits. No suspicious bony lesion. IMPRESSION: 1. Sigmoid and descending colon diverticulosis with focal mid descending colon diverticulitis. 2. Punctate nonobstructing left renal stone. Indeterminate but likely a simple or minimally corticated cyst in the interpolar left kidney. Nonemergent ultrasound of the left kidney recommended. Electronically signed by: Golden Powers DO (08/20/2018 10:21 AM) [facility] DICTATED and SIGNED BY: GOLDEN POWERS DO DATE: 08/20/18 1017 Course & Med Decision Making Course & Med Decision Making Pertinent Labs and Imaging studies reviewed. (See chart for details) []The patient has been admitted to the emergency department for antibiotic therapy and pain control. GI was consulted. The patient has been accepted to Dr. Rooney's service. Dragon Disclaimer Dragon Disclaimer This electronic medical record was generated, in whole or in part, using a voice recognition dictation system. Departure Departure Impression: Primary Impression: Diverticulitis Disposition: ADMITTED INPATIENT Condition: STABLE Referrals: NO PCP (PCP) RUSTY EUBANKS APRN Aug 20, 2018 16:54
[2018-08-20] MEDS: NON FORMULARY ITEM (Lurasidone Hcl (Latuda) 1 TAB) PO SCH (17:00)
[2018-08-20] MEDS: INSULIN LISPRO 300 UNITS/3 ML INSULN.PEN. SQ SCH ×2 (17:41→23:54)
[2018-08-20] MEDS: KETOROLAC 30 MG/ML VIAL. IV PRN ×2 (18:12→23:39)
--- NOTE | 2018-08-20 18:25 | NUR ---
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 This nurse will continue to monitor.
--- NOTE | 2018-08-20 18:26 | NUR ---
Talk to patient about bringing in home medication to be sent to pharmacy and verified to take while in the hospital. This nurse will continue to monitor.
[2018-08-20 19:15] VITALS: BP 116/74
--- NOTE | 2018-08-20 19:26 | PDOC2 ---
CONSULT Date of Consult Date of Consult DATE: 08/20/18 TIME: 19:18 History of Present Illness Reason for Visit: The patient is a 48 year old male who reports to the ER with abdominal pain. The pain is located in the left abdomen, and is has improved somewhat. He states that he's had two other bouts of similar pain with one episode at [facility]. He denies nausea or vomiting. Past Medical History Cardiovascular: No pertinent hx Pulmonary: No pertinent hx GI: Diverticulosis Heme/Onc: No pertinent hx Hepatobiliary: No pertinent hx Psych: No pertinent hx Rheumatologic: No pertinent hx Infectious disease: No pertinent hx ENT: No pertinent hx Renal/: No pertinent hx Endocrine: No pertinent hx Dermatology: No pertinent hx Past Surgical History Past Surgical History: No pertinent history Family History Family History: Adopted Social History 1 pack per day ALCOHOL: rare Drugs: None Current Problem List Problem List Problems Medical Problems: (1) Diverticulitis Status: Acute Current Medications Current Medications Current Medications Sodium Chloride 1,000 ml @ 1,000 mls/ hr 1X ONCE IV Last administered on 08/20at 09:28; Start 08/20/18 at 09:30; Stop 08/20/18 at 10:29; Status DC Ondansetron HCl (Zofran) 4 mg 1X ONCE IV Last administered on 08/20/18at 09:28 ; Start 08/20/18 at 09:30; Stop 08/20/18 at 09:31; Status DC Ketorolac Tromethamine (Toradol 30mg Vial) 30 mg 1X ONCE IV Last administered on 08/20/18at 09:28; Start 08/20/18 at 09:30; Stop 08/20/18 at 09:31; Status DC Iohexol (Omnipaque 300 Mg/ml) 75 ml 1X ONCE IV ; Start 08/20/18 at 10:30; Stop 08/20/18 at 10:31; Status DC Iohexol (Omnipaque 240 Mg/ml) 50 ml 1X ONCE PO ; Start 08/20/18 at 10:30; Stop 08/20/18 at 10:31; Status DC Info (CONTRAST GIVEN -- Rx MONITORING) 1 each PRN DAILY PRN MC SEE COMMENTS; Start 08/20/18 at 10:15; Stop 08/22/18 at 10:14 Fentanyl Citrate (Fentanyl 2ml Vial) 50 mcg PRN Q1HR PRN IV PAIN Last administered on 08/20/18 12:55; Start 08/20/18 at 11:00; Stop 08/20/18 at 13:56 ; Status DC Sodium Chloride 1,000 ml @ 125 mls/hr Q8H IV Last administered on 08/20/18 18 :15; Start 08/20/18 at 12:00; Stop 08/21/18 at 11:59 Metronidazole 100 ml @ 100 mls/hr Q12HR IV Last administered on 08/20/18 11: 19; Start 08/20/18 at 11:00 Ciprofloxacin/ Dextrose 200 ml @ 200 mls/hr 1X ONCE IV Last administered on 12:50; Start 08/20/18 at 11:00; Stop 08/20/18 at 11:59; Status DC Ketorolac Tromethamine (Toradol 30mg Vial) 30 mg PRN Q6HRS PRN IV MILD PAIN Last administered on 08/20/18 18:12; Start 08/20/18 at 14:00; Stop 08/25/18 at 13:59 Hydromorphone HCl (Dilaudid) 0.5 mg PRN Q4HRS PRN IV MODERATE-SEVERE PAIN; Start 08/20/18 at 14:00 Ondansetron HCl (Zofran) 4 mg PRN Q6HRS PRN IV NAUSEA/VOMITING; Start 08/20/18 at 14:00 Acetaminophen/ Hydrocodone Bitart (Lortab 5/325) 1 tab PRN Q6HRS PRN PO PAIN Last administered on 08/20/18 15:25; Start 08/20/18 at 14:00 Aspirin (Tia Aspirin) 325 mg PRN TID PRN PO HEADACHE; Start 08/20/18 at 14:00 Docusate Sodium (Colace) 100 mg DAILY PO Last administered on 08/20/18 15:25; Start 08/20/18 at 15:00 Hydrochlorothiazide (Hydrodiuril) 25 mg DAILY PO Last administered on 15:25; Start 08/20/18 at 15:00 Non-Formulary Medication (Lurasidone Hcl (Latuda)) 1 tab DAILYWSUP PO ; Start at 17:00; Status UNV Zolpidem Tartrate (Ambien) 5 mg PRN QHS PRN PO INSOMNIA, MAY REPEAT X1; Start 08/20/18 at 20:00 Lorazepam (Ativan) 0.5 mg PRN Q8HRS PRN PO ANXIETY / AGITATION; Start 08/20/18 at 14:00 Insulin Human Lispro (HumaLOG) 0-5 UNITS Q6HRS SQ ; Start 08/20/18 at 18:00 Dextrose (Dextrose 50%-Water Syringe) 12.5 gm PRN Q15MIN PRN IV SEE COMMENTS; Start 08/20/18 at 14:00 Ciprofloxacin/ Dextrose 100 ml @ 100 mls/hr Q12HR IV ; Start 08/20/18 at 21:00 Nicotine (Nicoderm Cq 21mg) 1 patch DAILY TD Last administered on 08/20/18at 15: 25; Start 08/20/18 at 15:00 Potassium Chloride (Klor-Con) 40 meq 1X ONCE PO Last administered on at 15:25; Start 08/20/18 at 15:00; Stop 08/20/18 at 15:01; Status DC Active Scripts Active Colace (Docusate Sodium) 100 Mg Capsule 100 Mg PO DAILY 30 Days [place] 5-325 Tablet (Acetaminophen/Hydrocodone Bitart) 1 Each Tablet 1-2 Each PO PRN Q6HRS PRN MDD 4 as needed for pain Hydrochlorothiazide Tablet (Hydrochlorothiazide) 25 Mg Tablet 1 Tab PO DAILY Aspirin 325 Mg Tablet 1 Tab PO TID PRN Reported Latuda (Lurasidone Hcl) 80 Mg Tablet 1 Tab PO DAILYWSUP Diazepam 10 Mg Tablet 10 Mg PO DAILY PRN Zolpidem Tartrate 10 Mg Tablet 10 Mg PO PRN QHS PRN Allergies Allergies: Coded Allergies: Penicillins (Verified Allergy, Intermediate, 07/28/18) ROS General: No: Chills, Night Sweats, Fatigue, Malaise, Appetite, Other PSYCHOLOGICAL ROS: No: Anxiety, Behavioral Disorder, Concentration difficultie , Decreased libido, Depression, Disorientation, Hallucinations, Hostility, Irritablity, Memory difficulties, Mood Swings, Obsessive thoughts, Physical abuse, Sexual abuse, Sleep disturbances, Suicidal ideation, Other Eyes: No Blurry vision, No Decreased vision, No Double vision, No Dry eyes, No Excessive tearing, No Eye Pain, No Itchy Eyes, No Loss of vision, No Photophobia , No Scotomata, No Uses contacts, No Uses glasses, No Other HEENT: No: Heacaches, Visual Changes, Hearing change, Nasal congestion, Nasal discharge, Oral lesions, Sinus pain, Sore Throat, Epistaxis, Sneezing, Snoring, Tinnitus, Vertigo, Vocal changes, Other ALLERGY AND IMMUNOLOGY: No: Hives, Insect Bite Sensitivity, Itchy/Watery Eyes, Nasal Congestion, Post Nasal Drip, Seasonal Allergies, Other Hematological and Lymphatic: No: Bleeding Problems, Blood Clots, Blood Transfusions, Brusing, Night Sweats, Pallor, Swollen Lymph Nodes, Other ENDOCRINE: No: Breast Changes, Galactorrhea, Hair Pattern Changes, Hot Flashes , Malaise/lethargy, Mood Swings, Palpitations, Polydipsia/polyuria, Skin Changes , Temperature Intolerance, Unexpected Weight Changes, Other Respiratory: No: Cough, Hemoptysis, Orthopnea, Pleuritic Pain, Shortness of breath, SOB with excertion, Sputum Changes, Stridor, Tachypnea, Wheezing, Other Cardiovascular: No Chest Pain, No Palpitations, No Orthopnea, No Paroxysmal Noc. Dyspnea, No Edema, No Lt Headedness, No Other Gastrointestinal: Yes Abdominal Pain Genitourinary: No Dysuria, No Frequency, No Incontinence, No Hematuria, No Retention, No Discharge, No Urgency, No Pain, No Flank Pain, No Other, No , No , No , No , No , No , No Musculoskeletal: No Gait Disturbance, No Joint Pain, No Joint Stiffness, No Joint Swelling, No Muscle Pain, No Muscular Weakness, No Pain In:, No Swelling In:, No Other Neurological: No Behavorial Changes, No Bowel/Bladder ControlChng, No Confusion , No Dizziness, No Gait Disturbance, No Headaches, No Impaired Coord/balance, No Memory Loss, No Numbness/Tingling, No Seizures, No Speech Problems, No Tremors, No Visual Changes, No Weakness, No Other Skin: No Dry Skin, No Eczema, No Hair Changes, No Lumps, No Mole Changes, No Mottling, No Nail Changes, No Pruritus, No Rash, No Skin Lesion Changes, No Other, No Acne Physical Exam General: Alert, Oriented X3, Cooperative HEENT: Atraumatic Lungs: Clear to auscultation Abdomen: Soft (obese, minimally tender, no guarding or peritoneal signs) Extremities: No clubbing, No cyanosis Skin: No rashes Neuro: Normal speech Psych/Mental Status: Mental status NL Vitals VITALS Vital Signs Date Time Temp Pulse Resp B/P (MAP) Pulse Ox O2 Delivery O2 Flow Rate FiO2 08/20/18 15:25 98 Room Air 08/20/18 15:00 97.7 81 18 126/79 (95) 97.7 Labs Labs Laboratory Tests Test 08/20/18 09:10 08/20/18 10:10 08/20/18 16:35 White Blood Count 11.2 x10^3/uL (4.0-11.0) Red Blood Count 4.80 x10^6/uL (4.30-5.70) Hemoglobin 13.9 g/dL (13.0-17.5) Hematocrit 42.1 % (39.0-53.0) Mean Corpuscular Volume 88 fL (79-100) Mean Corpuscular Hemoglobin 29 pg (25-35) Mean Corpuscular Hemoglobin Concent 33 g/dL (31-37) Red Cell Distribution Width 14.8 % (11.5-14.5) Platelet Count 202 x10^3/uL (140-400) Neutrophils (%) (Auto) 71 % (31-73) Lymphocytes (%) (Auto) 17 % (24-48) Monocytes (%) (Auto) 9 % (0-9) Eosinophils (%) (Auto) 2 % (0-3) Basophils (%) (Auto) 1 % (0-3) Neutrophils # (Auto) 8.0 x10^3uL (1.8-7.7) Lymphocytes # (Auto) 1.9 x10^3/uL (1.0-4.8) Monocytes # (Auto) 1.0 x10^3/uL (0.0-1.1) Eosinophils # (Auto) 0.2 x10^3/uL (0.0-0.7) Basophils # (Auto) 0.1 x10^3/uL (0.0-0.2) Sodium Level 141 mmol/L (136-145) Potassium Level 3.5 mmol/L (3.5-5.1) Chloride Level 105 mmol/L (98-107) Carbon Dioxide Level 27 mmol/L (21-32) Anion Gap 9 (6-14) Blood Urea Nitrogen 16 mg/dL (8-26) Creatinine 0.8 mg/dL (0.7-1.3) Estimated GFR (Cockcroft-Gault) 102.3 BUN/Creatinine Ratio 20 (6-20) Glucose Level 182 mg/dL (70-99) Calcium Level 8.4 mg/dL (8.5-10.1) Total Bilirubin 0.4 mg/dL (0.2-1.0) Aspartate Amino Transf (AST/SGOT) 12 U/L (15-37) Alanine Aminotransferase (ALT/SGPT) 16 U/L (16-63) Alkaline Phosphatase 71 U/L (46-116) Total Protein 7.1 g/dL (6.4-8.2) Albumin 3.2 g/dL (3.4-5.0) Albumin/Globulin Ratio 0.8 (1.0-1.7) Amylase Level 39 U/L (25-115) Lipase 82 U/L (73-393) Urine Collection Type Void Urine Color Yellow Urine Clarity Clear Urine pH 6.0 Urine Specific [place] >=1.030 Urine Protein Negative mg/dL (NEG-TRACE) Urine Glucose (UA) Negative mg/dL (NEG) Urine Ketones (Stick) Negative mg/dL (NEG) Urine Blood Negative (NEG) Urine Nitrite Negative (NEG) Urine Bilirubin Negative (NEG) Urine Urobilinogen Dipstick 0.2 mg/dL (0.2 mg/dL) Urine Leukocyte Esterase Negative (NEG) Urine RBC 1-2 /HPF (0-2) Urine WBC 1-4 /HPF (0-4) Urine Squamous Epithelial Cells Occ /LPF Urine Bacteria Few /HPF (0-FEW) Urine Mucus Mod /LPF Glucose (Fingerstick) 99 mg/dL (70-99) Laboratory Tests Test 08/20/18 09:10 08/20/18 10:10 08/20/18 16:35 White Blood Count 11.2 x10^3/uL (4.0-11.0) Red Blood Count 4.80 x10^6/uL (4.30-5.70) Hemoglobin 13.9 g/dL (13.0-17.5) Hematocrit 42.1 % (39.0-53.0) Mean Corpuscular Volume 88 fL (79-100) Mean Corpuscular Hemoglobin 29 pg (25-35) Mean Corpuscular Hemoglobin Concent 33 g/dL (31-37) Red Cell Distribution Width 14.8 % (11.5-14.5) Platelet Count 202 x10^3/uL (140-400) Neutrophils (%) (Auto) 71 % (31-73) Lymphocytes (%) (Auto) 17 % (24-48) Monocytes (%) (Auto) 9 % (0-9) Eosinophils (%) (Auto) 2 % (0-3) Basophils (%) (Auto) 1 % (0-3) Neutrophils # (Auto) 8.0 x10^3uL (1.8-7.7) Lymphocytes # (Auto) 1.9 x10^3/uL (1.0-4.8) Monocytes # (Auto) 1.0 x10^3/uL (0.0-1.1) Eosinophils # (Auto) 0.2 x10^3/uL (0.0-0.7) Basophils # (Auto) 0.1 x10^3/uL (0.0-0.2) Sodium Level 141 mmol/L (136-145) Potassium Level 3.5 mmol/L (3.5-5.1) Chloride Level 105 mmol/L (98-107) Carbon Dioxide Level 27 mmol/L (21-32) Anion Gap 9 (6-14) Blood Urea Nitrogen 16 mg/dL (8-26) Creatinine 0.8 mg/dL (0.7-1.3) Estimated GFR (Cockcroft-Gault) 102.3 BUN/Creatinine Ratio 20 (6-20) Glucose Level 182 mg/dL (70-99) Calcium Level 8.4 mg/dL (8.5-10.1) Total Bilirubin 0.4 mg/dL (0.2-1.0) Aspartate Amino Transf (AST/SGOT) 12 U/L (15-37) Alanine Aminotransferase (ALT/SGPT) 16 U/L (16-63) Alkaline Phosphatase 71 U/L (46-116) Total Protein 7.1 g/dL (6.4-8.2) Albumin 3.2 g/dL (3.4-5.0) Albumin/Globulin Ratio 0.8 (1.0-1.7) Amylase Level 39 U/L (25-115) Lipase 82 U/L (73-393) Urine Collection Type Void Urine Color Yellow Urine Clarity Clear Urine pH 6.0 Urine Specific [place] >=1.030 Urine Protein Negative mg/dL (NEG-TRACE) Urine Glucose (UA) Negative mg/dL (NEG) Urine Ketones (Stick) Negative mg/dL (NEG) Urine Blood Negative (NEG) Urine Nitrite Negative (NEG) Urine Bilirubin Negative (NEG) Urine Urobilinogen Dipstick 0.2 mg/dL (0.2 mg/dL) Urine Leukocyte Esterase Negative (NEG) Urine RBC 1-2 /HPF (0-2) Urine WBC 1-4 /HPF (0-4) Urine Squamous Epithelial Cells Occ /LPF Urine Bacteria Few /HPF (0-FEW) Urine Mucus Mod /LPF Glucose (Fingerstick) 99 mg/dL (70-99) Images Images CT scan abdomen/pelvis IMPRESSION: 1. Sigmoid and descending colon diverticulosis with focal mid descending colon diverticulitis. 2. Punctate nonobstructing left renal stone. Indeterminate but likely a simple or minimally corticated cyst in the interpolar left kidney. Nonemergent ultrasound of the left kidney recommended. Assessment/Plan Assessment/Plan Diverticulitis with mild inflammatory changes at the descending and sigmoid colon. Recommend IV abx, bowel rest, pain control etc. I did discuss surgery with the patient including the risks of surgery (bleeding, infection, anastomotic leak etc). In addition I did discuss that at times diversion with temporary ostomy is necessary for diverticulitis surgery. He prefers to avoid this if possible. I did emphasize risk modification in the event that future surgery were necessary including weight loss, dietary changes for diverticulosis , and smoking cessation. He understands and states that he will try those recommendations. No plans for surgery in the near future in favor of improving his risk factors. Thanks for the consult! COURT BAUTISTA MD Aug 20, 2018 19:26
[2018-08-20] MEDS ORDERED: ZOLPIDEM 5 MG TABLET. PO PRN (20:00)
[2018-08-20] MEDS: CIPROFLOXACIN 200MG PREMIX 100 ML IV SCH (21:53)
[2018-08-20 23:09] LABS: HEMOGLOBIN A1C 5.4 % (4.8-5.6)
[2018-08-20 23:25] VITALS: BP 143/93
[2018-08-21] MEDS: MORPHINE SULFATE 4 MG/ML VIAL. IV PRN ×3 (00:52→10:34)
[2018-08-21 02:58] VITALS: BP 128/82
[2018-08-21 04:10] LABS: BASO # 0.1 x10^3/uL (0.0-0.2); BASO % 0 % (0-3); EOS # 0.3 x10^3/uL (0.0-0.7); EOS % 2 % (0-3); HEMATOCRIT 38.5 % (39.0-53.0); HEMOGLOBIN 12.6 g/dL (13.0-17.5); LYMPH # 2.1 x10^3/uL (1.0-4.8); LYMPH % 18 % (24-48); MEAN CORPUSCULAR HEMOGLOBIN 29 pg (25-35); MEAN CORPUSCULAR HGB CONC 33 g/dL (31-37); MEAN CORPUSCULAR VOLUME 88 fL (79-100); MONO # 1.4 x10^3/uL (0.0-1.1); MONO % 12 % (0-9); NEUT % 68 % (31-73); PLATELET COUNT 191 x10^3/uL (140-400); RED BLOOD COUNT 4.38 x10^6/uL (4.30-5.70); RED CELL DISTRIBUTION WIDTH 14.8 % (11.5-14.5); WHITE BLOOD COUNT 11.8 x10^3/uL (4.0-11.0)
[2018-08-21 04:25] LABS: CALCIUM 8.4 mg/dL (8.5-10.1); CREATININE 0.7 mg/dL (0.7-1.3); GFR 119.4; POTASSIUM 3.8 mmol/L (3.5-5.1)
[2018-08-21] MEDS: IV NORMAL SALINE 1000ML BAG 1,000 ML IV SCH (05:00)
[2018-08-21] MEDS: INSULIN LISPRO 300 UNITS/3 ML INSULN.PEN. SQ SCH ×3 (06:00→16:58)
[2018-08-21 07:00] VITALS: BP 107/51
[2018-08-21] MEDS: hydroCHLOROthiazide 25 MG TABLET PO SCH (08:33)
[2018-08-21] MEDS: DOCUSATE SODIUM 100 MG CAPSULE. PO SCH (08:33)
[2018-08-21] MEDS: KETOROLAC 30 MG/ML VIAL. IV PRN (08:35)
[2018-08-21] MEDS: NICOTINE 21MG PATCH. TD SCH (08:35)
[2018-08-21] MEDS: CIPROFLOXACIN 200MG PREMIX 100 ML IV SCH ×2 (08:45→20:04)
--- NOTE | 2018-08-21 09:38 | PDOC ---
PROGRESS NOTES History of Present Illness History of Present Illness Images Images CT Abd/pelvis - 1. Sigmoid and descending colon diverticulosis with focal mid descending colon diverticulitis. 2. Punctate nonobstructing left renal stone. Indeterminate but likely a simple or minimally corticated cyst in the interpolar left kidney. Nonemergent ultrasound of the left kidney recommended. VTE Prophylaxis Ordered VTE Prophylaxis Devices: Yes VTE Pharmacological Prophylaxi: No Assessment/Plan Assessment/Plan A/P: LLQ pain - 2/2 diverticulitis, mild leukocytosis. Cipro, flagyl. Consult GI and surgery Sepsis - meets SIRS criteria with diverticulitis, given antibiotics and fluids. F/u H/o diverticulitis - required intpt treatment in the past w/ discussion for elective colon resection. Will consult surgery Abnormal CTs - suggestive of sigmoid diverticulitis, other findings as above, renal US Smoker - nicotine patch Elevated glucose - screen for DM, sliding scale while in house FEN - NPO, CLEAR LIQUIDS PPX - scds FULL CODE Inpatient for recurrent diverticulitis, will need likely 48 hours, STILL NEEDS IV DILAUDID Vitals Vitals Vital Signs Date Time Temp Pulse Resp B/P (MAP) Pulse Ox O2 Delivery O2 Flow Rate FiO2 08/21/18 07:00 98.8 82 18 107/51 (69) 95 Room Air 98.8 Physical Exam General: Alert, Oriented X3, Cooperative, No acute distress Heart: Regular rate, Normal S1, Normal S2, No murmurs Lungs: Clear Abdomen: Soft (obese, minimally tender, no guarding or peritoneal signs), Other (MILD LUQ TENDERNESS, NO REBOUND) Extremities: No clubbing, No cyanosis Skin: No rashes Labs LABS SEX: M EXAM STATUS: REG ER ORD. PHYSICIAN: RUSTY EUBANKS APRN REASON: patient states worsening abdominal pain PROCEDURE: CT ABD PELV W/ORAL&IV CONTRAST PQRS Compliance statement: One or more of the following individualized dose reduction techniques were utilized for this examination: 1. Automated exposure control. 2. Adjustment of the mA and/or kV according to patient size. 3. Use of iterative reconstruction technique. Indication:Worsening abdominal pain. TECHNIQUE: CT abdomen and pelvis with IV contrast with multiplanar reformats. COMPARISON: 07/27/2018 FINDINGS: Heart is normal in size. No pericardial or pleural effusion. Clear lung bases. Liver, spleen, gallbladder, pancreas, adrenals and right kidney are within normal limits. Punctate nonobstructing stone in the left kidney. Stable 1.3 cm hypoattenuating lesion in the medial aspect of the interpolar left kidney most likely a simple or minimally complicated cyst. No enlarged retroperitoneal or pelvic adenopathy. No free pelvic fluid or ascites. No bowel obstruction. Sigmoid and descending colon diverticulosis. Mild wall thickening seen of the mid descending colon with pericolonic inflammatory changes. No pneumoperitoneum. The prostate and seminal vesicles show no large mass. Urinary bladder is within normal limits. No suspicious bony lesion. IMPRESSION: 1. Sigmoid and descending colon diverticulosis with focal mid descending colon diverticulitis. 2. Punctate nonobstructing left renal stone. Indeterminate but likely a simple or minimally corticated cyst in the interpolar left kidney. Nonemergent ultrasound of the left kidney recommended. Electronically signed by: Golden Selby DO (08/20/2018 10:21 AM) [facility] DICTATED and SIGNED BY: GOLDEN SELBY DO DATE: 08/20/18 1017 Indication: Mass on CT. TECHNIQUE: Ultrasound of the left kidney COMPARISON: Same day CT abdomen pelvis FINDINGS: The left kidney measures 13.3 x 6.4 x 6.8 cm without hydronephrosis. There is a 1.6 x 1.1 x 1.1 cm simple appearing cyst in the interpolar region of the left kidney that most likely corresponds to abnormality seen on the CT. Additional 0.7 x 0.7 x 0.7 cm simple cyst in the upper pole of the left kidney also seen on same-day CT. IMPRESSION: Couple of simple appearing cysts that corresponds to the findings on CT. Electronically signed by: Golden Selby DO (08/20/2018 3:15 PM) [facility] Laboratory Tests Test 08/20/18 10:10 08/20/18 16:35 08/20/18 20:50 08/21/18 03:25 Urine Collection Type Void Urine Color Yellow Urine Clarity Clear Urine pH 6.0 Urine Specific [place] >=1.030 Urine Protein Negative mg/dL (NEG-TRACE) Urine Glucose (UA) Negative mg/dL (NEG) Urine Ketones (Stick) Negative mg/dL (NEG) Urine Blood Negative (NEG) Urine Nitrite Negative (NEG) Urine Bilirubin Negative (NEG) Urine Urobilinogen Dipstick 0.2 mg/dL (0.2 mg/dL) Urine Leukocyte Esterase Negative (NEG) Urine RBC 1-2 /HPF (0-2) Urine WBC 1-4 /HPF (0-4) Urine Squamous Epithelial Cells Occ /LPF Urine Bacteria Few /HPF (0-FEW) Urine Mucus Mod /LPF Glucose (Fingerstick) 99 mg/dL (70-99) 80 mg/dL (70-99) White Blood Count 11.8 x10^3/uL (4.0-11.0) Red Blood Count 4.38 x10^6/uL (4.30-5.70) Hemoglobin 12.6 g/dL (13.0-17.5) Hematocrit 38.5 % (39.0-53.0) Mean Corpuscular Volume 88 fL (79-100) Mean Corpuscular Hemoglobin 29 pg (25-35) Mean Corpuscular Hemoglobin Concent 33 g/dL (31-37) Red Cell Distribution Width 14.8 % (11.5-14.5) Platelet Count 191 x10^3/uL (140-400) Neutrophils (%) (Auto) 68 % (31-73) Lymphocytes (%) (Auto) 18 % (24-48) Monocytes (%) (Auto) 12 % (0-9) Eosinophils (%) (Auto) 2 % (0-3) Basophils (%) (Auto) 0 % (0-3) Neutrophils # (Auto) 8.0 x10^3uL (1.8-7.7) Lymphocytes # (Auto) 2.1 x10^3/uL (1.0-4.8) Monocytes # (Auto) 1.4 x10^3/uL (0.0-1.1) Eosinophils # (Auto) 0.3 x10^3/uL (0.0-0.7) Basophils # (Auto) 0.1 x10^3/uL (0.0-0.2) Sodium Level 139 mmol/L (136-145) Potassium Level 3.8 mmol/L (3.5-5.1) Chloride Level 104 mmol/L (98-107) Carbon Dioxide Level 27 mmol/L (21-32) Anion Gap 8 (6-14) Blood Urea Nitrogen 8 mg/dL (8-26) Creatinine 0.7 mg/dL (0.7-1.3) Estimated GFR (Cockcroft-Gault) 119.4 Glucose Level 79 mg/dL (70-99) Calcium Level 8.4 mg/dL (8.5-10.1) Test 08/21/18 07:32 Glucose (Fingerstick) 89 mg/dL (70-99) Assessment and Plan Assessmemt and Plan Problems Medical Problems: (1) Diverticulitis Status: Acute Comment Review of Relevant I have reviewed the following items ani (where applicable) has been applied. Labs Laboratory Tests Test 08/20/18 09:10 08/20/18 10:10 08/20/18 16:35 08/20/18 20:50 White Blood Count 11.2 x10^3/uL (4.0-11.0) Red Blood Count 4.80 x10^6/uL (4.30-5.70) Hemoglobin 13.9 g/dL (13.0-17.5) Hematocrit 42.1 % (39.0-53.0) Mean Corpuscular Volume 88 fL (79-100) Mean Corpuscular Hemoglobin 29 pg (25-35) Mean Corpuscular Hemoglobin Concent 33 g/dL (31-37) Red Cell Distribution Width 14.8 % (11.5-14.5) Platelet Count 202 x10^3/uL (140-400) Neutrophils (%) (Auto) 71 % (31-73) Lymphocytes (%) (Auto) 17 % (24-48) Monocytes (%) (Auto) 9 % (0-9) Eosinophils (%) (Auto) 2 % (0-3) Basophils (%) (Auto) 1 % (0-3) Neutrophils # (Auto) 8.0 x10^3uL (1.8-7.7) Lymphocytes # (Auto) 1.9 x10^3/uL (1.0-4.8) Monocytes # (Auto) 1.0 x10^3/uL (0.0-1.1) Eosinophils # (Auto) 0.2 x10^3/uL (0.0-0.7) Basophils # (Auto) 0.1 x10^3/uL (0.0-0.2) Sodium Level 141 mmol/L (136-145) Potassium Level 3.5 mmol/L (3.5-5.1) Chloride Level 105 mmol/L (98-107) Carbon Dioxide Level 27 mmol/L (21-32) Anion Gap 9 (6-14) Blood Urea Nitrogen 16 mg/dL (8-26) Creatinine 0.8 mg/dL (0.7-1.3) Estimated GFR (Cockcroft-Gault) 102.3 BUN/Creatinine Ratio 20 (6-20) Glucose Level 182 mg/dL (70-99) Hemoglobin A1c 5.4 % (4.8-5.6) Calcium Level 8.4 mg/dL (8.5-10.1) Total Bilirubin 0.4 mg/dL (0.2-1.0) Aspartate Amino Transf (AST/SGOT) 12 U/L (15-37) Alanine Aminotransferase (ALT/SGPT) 16 U/L (16-63) Alkaline Phosphatase 71 U/L (46-116) Total Protein 7.1 g/dL (6.4-8.2) Albumin 3.2 g/dL (3.4-5.0) Albumin/Globulin Ratio 0.8 (1.0-1.7) Amylase Level 39 U/L (25-115) Lipase 82 U/L (73-393) Urine Collection Type Void Urine Color Yellow Urine Clarity Clear Urine pH 6.0 Urine Specific [place] >=1.030 Urine Protein Negative mg/dL (NEG-TRACE) Urine Glucose (UA) Negative mg/dL (NEG) Urine Ketones (Stick) Negative mg/dL (NEG) Urine Blood Negative (NEG) Urine Nitrite Negative (NEG) Urine Bilirubin Negative (NEG) Urine Urobilinogen Dipstick 0.2 mg/dL (0.2 mg/dL) Urine Leukocyte Esterase Negative (NEG) Urine RBC 1-2 /HPF (0-2) Urine WBC 1-4 /HPF (0-4) Urine Squamous Epithelial Cells Occ /LPF Urine Bacteria Few /HPF (0-FEW) Urine Mucus Mod /LPF Glucose (Fingerstick) 99 mg/dL (70-99) 80 mg/dL (70-99) Test 08/21/18 03:25 08/21/18 07:32 White Blood Count 11.8 x10^3/uL (4.0-11.0) Red Blood Count 4.38 x10^6/uL (4.30-5.70) Hemoglobin 12.6 g/dL (13.0-17.5) Hematocrit 38.5 % (39.0-53.0) Mean Corpuscular Volume 88 fL (79-100) Mean Corpuscular Hemoglobin 29 pg (25-35) Mean Corpuscular Hemoglobin Concent 33 g/dL (31-37) Red Cell Distribution Width 14.8 % (11.5-14.5) Platelet Count 191 x10^3/uL (140-400) Neutrophils (%) (Auto) 68 % (31-73) Lymphocytes (%) (Auto) 18 % (24-48) Monocytes (%) (Auto) 12 % (0-9) Eosinophils (%) (Auto) 2 % (0-3) Basophils (%) (Auto) 0 % (0-3) Neutrophils # (Auto) 8.0 x10^3uL (1.8-7.7) Lymphocytes # (Auto) 2.1 x10^3/uL (1.0-4.8) Monocytes # (Auto) 1.4 x10^3/uL (0.0-1.1) Eosinophils # (Auto) 0.3 x10^3/uL (0.0-0.7) Basophils # (Auto) 0.1 x10^3/uL (0.0-0.2) Sodium Level 139 mmol/L (136-145) Potassium Level 3.8 mmol/L (3.5-5.1) Chloride Level 104 mmol/L (98-107) Carbon Dioxide Level 27 mmol/L (21-32) Anion Gap 8 (6-14) Blood Urea Nitrogen 8 mg/dL (8-26) Creatinine 0.7 mg/dL (0.7-1.3) Estimated GFR (Cockcroft-Gault) 119.4 Glucose Level 79 mg/dL (70-99) Calcium Level 8.4 mg/dL (8.5-10.1) Glucose (Fingerstick) 89 mg/dL (70-99) Laboratory Tests Test 08/20/18 10:10 08/20/18 16:35 08/20/18 20:50 08/21/18 03:25 Urine Collection Type Void Urine Color Yellow Urine Clarity Clear Urine pH 6.0 Urine Specific [place] >=1.030 Urine Protein Negative mg/dL (NEG-TRACE) Urine Glucose (UA) Negative mg/dL (NEG) Urine Ketones (Stick) Negative mg/dL (NEG) Urine Blood Negative (NEG) Urine Nitrite Negative (NEG) Urine Bilirubin Negative (NEG) Urine Urobilinogen Dipstick 0.2 mg/dL (0.2 mg/dL) Urine Leukocyte Esterase Negative (NEG) Urine RBC 1-2 /HPF (0-2) Urine WBC 1-4 /HPF (0-4) Urine Squamous Epithelial Cells Occ /LPF Urine Bacteria Few /HPF (0-FEW) Urine Mucus Mod /LPF Glucose (Fingerstick) 99 mg/dL (70-99) 80 mg/dL (70-99) White Blood Count 11.8 x10^3/uL (4.0-11.0) Red Blood Count 4.38 x10^6/uL (4.30-5.70) Hemoglobin 12.6 g/dL (13.0-17.5) Hematocrit 38.5 % (39.0-53.0) Mean Corpuscular Volume 88 fL (79-100) Mean Corpuscular Hemoglobin 29 pg (25-35) Mean Corpuscular Hemoglobin Concent 33 g/dL (31-37) Red Cell Distribution Width 14.8 % (11.5-14.5) Platelet Count 191 x10^3/uL (140-400) Neutrophils (%) (Auto) 68 % (31-73) Lymphocytes (%) (Auto) 18 % (24-48) Monocytes (%) (Auto) 12 % (0-9) Eosinophils (%) (Auto) 2 % (0-3) Basophils (%) (Auto) 0 % (0-3) Neutrophils # (Auto) 8.0 x10^3uL (1.8-7.7) Lymphocytes # (Auto) 2.1 x10^3/uL (1.0-4.8) Monocytes # (Auto) 1.4 x10^3/uL (0.0-1.1) Eosinophils # (Auto) 0.3 x10^3/uL (0.0-0.7) Basophils # (Auto) 0.1 x10^3/uL (0.0-0.2) Sodium Level 139 mmol/L (136-145) Potassium Level 3.8 mmol/L (3.5-5.1) Chloride Level 104 mmol/L (98-107) Carbon Dioxide Level 27 mmol/L (21-32) Anion Gap 8 (6-14) Blood Urea Nitrogen 8 mg/dL (8-26) Creatinine 0.7 mg/dL (0.7-1.3) Estimated GFR (Cockcroft-Gault) 119.4 Glucose Level 79 mg/dL (70-99) Calcium Level 8.4 mg/dL (8.5-10.1) Test 08/21/18 07:32 Glucose (Fingerstick) 89 mg/dL (70-99) Medications Current Medications Sodium Chloride 1,000 ml @ 1,000 mls/ hr 1X ONCE IV Last administered on 08/20at 09:28; Start 08/20/18 at 09:30; Stop 08/20/18 at 10:29; Status DC Ondansetron HCl (Zofran) 4 mg 1X ONCE IV Last administered on 08/20/18at 09:28 ; Start 08/20/18 at 09:30; Stop 08/20/18 at 09:31; Status DC Ketorolac Tromethamine (Toradol 30mg Vial) 30 mg 1X ONCE IV Last administered on 08/20/18at 09:28; Start 08/20/18 at 09:30; Stop 08/20/18 at 09:31; Status DC Iohexol (Omnipaque 300 Mg/ml) 75 ml 1X ONCE IV ; Start 08/20/18 at 10:30; Stop 08/20/18 at 10:31; Status DC Iohexol (Omnipaque 240 Mg/ml) 50 ml 1X ONCE PO ; Start 08/20/18 at 10:30; Stop 08/20/18 at 10:31; Status DC Info (CONTRAST GIVEN -- Rx MONITORING) 1 each PRN DAILY PRN MC SEE COMMENTS; Start 08/20/18 at 10:15; Stop 08/22/18 at 10:14 Fentanyl Citrate (Fentanyl 2ml Vial) 50 mcg PRN Q1HR PRN IV PAIN Last administered on 08/20/18at 12:55; Start 08/20/18 at 11:00; Stop 08/20/18 at 13:56 ; Status DC Sodium Chloride 1,000 ml @ 125 mls/hr Q8H IV Last administered on 08/21/18at 05 :00; Start 08/20/18 at 12:00; Stop 08/21/18 at 11:59 Metronidazole 100 ml @ 100 mls/hr Q12HR IV Last administered on 08/20/18at 23: 12; Start 08/20/18 at 11:00 Ciprofloxacin/ Dextrose 200 ml @ 200 mls/hr 1X ONCE IV Last administered on at 12:50; Start 08/20/18 at 11:00; Stop 08/20/18 at 11:59; Status DC Ketorolac Tromethamine (Toradol 30mg Vial) 30 mg PRN Q6HRS PRN IV MILD PAIN Last administered on 08/21/18at 08:35; Start 08/20/18 at 14:00; Stop 08/25/18 at 13:59 Hydromorphone HCl (Dilaudid) 0.5 mg PRN Q4HRS PRN IV MODERATE-SEVERE PAIN Last administered on 08/20/18at 20:57; Start 08/20/18 at 14:00; Stop 08/20/18 at 21:02 ; Status DC Ondansetron HCl (Zofran) 4 mg PRN Q6HRS PRN IV NAUSEA/VOMITING; Start 08/20/18 at 14:00 Acetaminophen/ Hydrocodone Bitart (Lortab 5/325) 1 tab PRN Q6HRS PRN PO PAIN Last administered on 08/20/18at 15:25; Start 08/20/18 at 14:00 Aspirin (Tia Aspirin) 325 mg PRN TID PRN PO HEADACHE; Start 08/20/18 at 14:00 Docusate Sodium (Colace) 100 mg DAILY PO Last administered on 08/21/18at 08:33; Start 08/20/18 at 15:00 Hydrochlorothiazide (Hydrodiuril) 25 mg DAILY PO Last administered on at 08:33; Start 08/20/18 at 15:00 Non-Formulary Medication (Lurasidone Hcl (Latuda)) 1 tab DAILYWSUP PO ; Start at 17:00; Status UNV Zolpidem Tartrate (Ambien) 5 mg PRN QHS PRN PO INSOMNIA, MAY REPEAT X1; Start 08/20/18 at 20:00 Lorazepam (Ativan) 0.5 mg PRN Q8HRS PRN PO ANXIETY / AGITATION; Start 08/20/18 at 14:00 Insulin Human Lispro (HumaLOG) 0-5 UNITS Q6HRS SQ ; Start 08/20/18 at 18:00 Dextrose (Dextrose 50%-Water Syringe) 12.5 gm PRN Q15MIN PRN IV SEE COMMENTS; Start 08/20/18 at 14:00 Ciprofloxacin/ Dextrose 100 ml @ 100 mls/hr Q12HR IV Last administered on 08/21at 08:45; Start 08/20/18 at 21:00 Nicotine (Nicoderm Cq 21mg) 1 patch DAILY TD Last administered on 08/21/18at 08: 35; Start 08/20/18 at 15:00 Potassium Chloride (Klor-Con) 40 meq 1X ONCE PO Last administered on at 15:25; Start 08/20/18 at 15:00; Stop 08/20/18 at 15:01; Status DC Morphine Sulfate (Morphine Sulfate) 2 mg PRN Q4HRS PRN IV PAIN Last administered on 08/21/18at 05:00; Start 08/20/18 at 21:00 Active Scripts Active Colace (Docusate Sodium) 100 Mg Capsule 100 Mg PO DAILY 30 Days [place] 5-325 Tablet (Acetaminophen/Hydrocodone Bitart) 1 Each Tablet 1-2 Each PO PRN Q6HRS PRN MDD 4 as needed for pain Hydrochlorothiazide Tablet (Hydrochlorothiazide) 25 Mg Tablet 1 Tab PO DAILY Aspirin 325 Mg Tablet 1 Tab PO TID PRN Reported Latuda (Lurasidone Hcl) 80 Mg Tablet 1 Tab PO DAILYWSUP Diazepam 10 Mg Tablet 10 Mg PO DAILY PRN Zolpidem Tartrate 10 Mg Tablet 10 Mg PO PRN QHS PRN Vitals/I & O Vital Sign - Last 24 Hours 08/20/18 08/20/18 08/20/18 08/20/18 12:20 12:25 12:55 15:00 Temp 97.4 97.7 97.4 97.7 Pulse 80 81 Resp 18 18 B/P (MAP) 137/81 (99) 126/79 (95) Pulse Ox 98 98 96 O2 Delivery Room Air Room Air Room Air Room Air 208/20/18 08/20/18 08/20/18 15:25 19:15 20:00 20:57 Temp 98.5 98.5 Pulse 85 Resp 18 22 B/P (MAP) 116/74 (88) Pulse Ox 98 96 O2 Delivery Room Air Room Air Room Air Room Air 08/20/18 08/21/18 08/21/18 08/21/18 23:25 00:52 02:58 05:00 Temp 98.8 98.5 98.8 98.5 Pulse 89 85 Resp 18 20 18 18 B/P (MAP) 143/93 (110) 128/82 (97) Pulse Ox 97 96 O2 Delivery Room Air Room Air Room Air Room Air 08/21/18 08/21/18 05:30 07:00 Temp 98.8 98.8 Pulse 82 Resp 18 18 B/P (MAP) 107/51 (69) Pulse Ox 95 O2 Delivery Room Air Room Air Intake and Output 08/20/18 08/20/18 08/21/18 15:01 23:01 07:01 Intake Total 1000 ml 600 ml Output Total 400 ml 1550 ml Balance 1000 ml -400 ml -950 ml CHARLA ROJAS MD Aug 21, 2018 09:38
--- NOTE | 2018-08-21 09:55 | PDOC ---
Subjective: Subjective: Pain is resolved, wants to advance diet. Says he wants to follow-up w/ Dr. Stover as an outpt to discuss surgery because he has a friend who works there. Objective: Vital Signs: Vital Signs Date Time Temp Pulse Resp B/P (MAP) Pulse Ox O2 Delivery O2 Flow Rate FiO2 08/21/18 07:00 98.8 82 18 107/51 (69) 95 Room Air 98.8 Labs: Laboratory Tests Test 08/20/18 10:10 08/20/18 16:35 08/20/18 20:50 08/21/18 03:25 Urine Collection Type Void Urine Color Yellow Urine Clarity Clear Urine pH 6.0 Urine Specific [place] >=1.030 Urine Protein Negative mg/dL Urine Glucose (UA) Negative mg/dL Urine Ketones (Stick) Negative mg/dL Urine Blood Negative Urine Nitrite Negative Urine Bilirubin Negative Urine Urobilinogen Dipstick 0.2 mg/dL Urine Leukocyte Esterase Negative Urine RBC 1-2 /HPF Urine WBC 1-4 /HPF Urine Squamous Epithelial Cells Occ /LPF Urine Bacteria Few /HPF Urine Mucus Mod /LPF Glucose (Fingerstick) 99 mg/dL 80 mg/dL White Blood Count 11.8 x10^3/uL Red Blood Count 4.38 x10^6/uL Hemoglobin 12.6 g/dL Hematocrit 38.5 % Mean Corpuscular Volume 88 fL Mean Corpuscular Hemoglobin 29 pg Mean Corpuscular Hemoglobin Concent 33 g/dL Red Cell Distribution Width 14.8 % Platelet Count 191 x10^3/uL Neutrophils (%) (Auto) 68 % Lymphocytes (%) (Auto) 18 % Monocytes (%) (Auto) 12 % Eosinophils (%) (Auto) 2 % Basophils (%) (Auto) 0 % Neutrophils # (Auto) 8.0 x10^3uL Lymphocytes # (Auto) 2.1 x10^3/uL Monocytes # (Auto) 1.4 x10^3/uL Eosinophils # (Auto) 0.3 x10^3/uL Basophils # (Auto) 0.1 x10^3/uL Sodium Level 139 mmol/L Potassium Level 3.8 mmol/L Chloride Level 104 mmol/L Carbon Dioxide Level 27 mmol/L Anion Gap 8 Blood Urea Nitrogen 8 mg/dL Creatinine 0.7 mg/dL Estimated GFR (Cockcroft-Gault) 119.4 Glucose Level 79 mg/dL Calcium Level 8.4 mg/dL Test 08/21/18 07:32 Glucose (Fingerstick) 89 mg/dL PE: GEN: NAD, was talking on the phone LUNGS: CTAB HEART: RRR ABD: quiet BS, non-tender NEURO/PSYCH: A & O �3 A/P: Recurrent diverticulitis -- Pain resolved. ADAT. Could change to PO atbx as well. He has plans to follow-up w/ surgeon as outpt. Thinks last colonoscopy performed 3-4 years ago - will need repeat evaluation as outpt. CARLIE LILLY Aug 21, 2018 09:55
--- NOTE | 2018-08-21 10:04 | PDOC ---
SURGICAL PROGRESS NOTE Subjective Patient doing well, no pain. Tolerated soft diet Vital Signs Vital Signs Date Time Temp Pulse Resp B/P (MAP) Pulse Ox O2 Delivery O2 Flow Rate FiO2 08/21/18 07:00 98.8 82 18 107/51 (69) 95 Room Air 98.8 I&O Intake and Output 08/21/18 07:01 Intake Total 1600 ml Output Total 1950 ml Balance -350 ml Intake Oral 600 ml IV Total 1000 ml Output Urine Total 1950 ml # Voids 1 PATIENT HAS A HARRIS: No General: Alert, Oriented X3, Cooperative, No acute distress Abdomen: Normal bowel sounds, Soft, No tenderness Labs Laboratory Tests Test 08/20/18 09:10 08/20/18 10:10 08/20/18 16:35 08/20/18 20:50 White Blood Count 11.2 x10^3/uL (4.0-11.0) Red Blood Count 4.80 x10^6/uL (4.30-5.70) Hemoglobin 13.9 g/dL (13.0-17.5) Hematocrit 42.1 % (39.0-53.0) Mean Corpuscular Volume 88 fL (79-100) Mean Corpuscular Hemoglobin 29 pg (25-35) Mean Corpuscular Hemoglobin Concent 33 g/dL (31-37) Red Cell Distribution Width 14.8 % (11.5-14.5) Platelet Count 202 x10^3/uL (140-400) Neutrophils (%) (Auto) 71 % (31-73) Lymphocytes (%) (Auto) 17 % (24-48) Monocytes (%) (Auto) 9 % (0-9) Eosinophils (%) (Auto) 2 % (0-3) Basophils (%) (Auto) 1 % (0-3) Neutrophils # (Auto) 8.0 x10^3uL (1.8-7.7) Lymphocytes # (Auto) 1.9 x10^3/uL (1.0-4.8) Monocytes # (Auto) 1.0 x10^3/uL (0.0-1.1) Eosinophils # (Auto) 0.2 x10^3/uL (0.0-0.7) Basophils # (Auto) 0.1 x10^3/uL (0.0-0.2) Sodium Level 141 mmol/L (136-145) Potassium Level 3.5 mmol/L (3.5-5.1) Chloride Level 105 mmol/L (98-107) Carbon Dioxide Level 27 mmol/L (21-32) Anion Gap 9 (6-14) Blood Urea Nitrogen 16 mg/dL (8-26) Creatinine 0.8 mg/dL (0.7-1.3) Estimated GFR (Cockcroft-Gault) 102.3 BUN/Creatinine Ratio 20 (6-20) Glucose Level 182 mg/dL (70-99) Hemoglobin A1c 5.4 % (4.8-5.6) Calcium Level 8.4 mg/dL (8.5-10.1) Total Bilirubin 0.4 mg/dL (0.2-1.0) Aspartate Amino Transf (AST/SGOT) 12 U/L (15-37) Alanine Aminotransferase (ALT/SGPT) 16 U/L (16-63) Alkaline Phosphatase 71 U/L (46-116) Total Protein 7.1 g/dL (6.4-8.2) Albumin 3.2 g/dL (3.4-5.0) Albumin/Globulin Ratio 0.8 (1.0-1.7) Amylase Level 39 U/L (25-115) Lipase 82 U/L (73-393) Urine Collection Type Void Urine Color Yellow Urine Clarity Clear Urine pH 6.0 Urine Specific [place] >=1.030 Urine Protein Negative mg/dL (NEG-TRACE) Urine Glucose (UA) Negative mg/dL (NEG) Urine Ketones (Stick) Negative mg/dL (NEG) Urine Blood Negative (NEG) Urine Nitrite Negative (NEG) Urine Bilirubin Negative (NEG) Urine Urobilinogen Dipstick 0.2 mg/dL (0.2 mg/dL) Urine Leukocyte Esterase Negative (NEG) Urine RBC 1-2 /HPF (0-2) Urine WBC 1-4 /HPF (0-4) Urine Squamous Epithelial Cells Occ /LPF Urine Bacteria Few /HPF (0-FEW) Urine Mucus Mod /LPF Glucose (Fingerstick) 99 mg/dL (70-99) 80 mg/dL (70-99) Test 08/21/18 03:25 08/21/18 07:32 White Blood Count 11.8 x10^3/uL (4.0-11.0) Red Blood Count 4.38 x10^6/uL (4.30-5.70) Hemoglobin 12.6 g/dL (13.0-17.5) Hematocrit 38.5 % (39.0-53.0) Mean Corpuscular Volume 88 fL (79-100) Mean Corpuscular Hemoglobin 29 pg (25-35) Mean Corpuscular Hemoglobin Concent 33 g/dL (31-37) Red Cell Distribution Width 14.8 % (11.5-14.5) Platelet Count 191 x10^3/uL (140-400) Neutrophils (%) (Auto) 68 % (31-73) Lymphocytes (%) (Auto) 18 % (24-48) Monocytes (%) (Auto) 12 % (0-9) Eosinophils (%) (Auto) 2 % (0-3) Basophils (%) (Auto) 0 % (0-3) Neutrophils # (Auto) 8.0 x10^3uL (1.8-7.7) Lymphocytes # (Auto) 2.1 x10^3/uL (1.0-4.8) Monocytes # (Auto) 1.4 x10^3/uL (0.0-1.1) Eosinophils # (Auto) 0.3 x10^3/uL (0.0-0.7) Basophils # (Auto) 0.1 x10^3/uL (0.0-0.2) Sodium Level 139 mmol/L (136-145) Potassium Level 3.8 mmol/L (3.5-5.1) Chloride Level 104 mmol/L (98-107) Carbon Dioxide Level 27 mmol/L (21-32) Anion Gap 8 (6-14) Blood Urea Nitrogen 8 mg/dL (8-26) Creatinine 0.7 mg/dL (0.7-1.3) Estimated GFR (Cockcroft-Gault) 119.4 Glucose Level 79 mg/dL (70-99) Calcium Level 8.4 mg/dL (8.5-10.1) Glucose (Fingerstick) 89 mg/dL (70-99) Laboratory Tests Test 08/20/18 10:10 08/20/18 16:35 08/20/18 20:50 08/21/18 03:25 Urine Collection Type Void Urine Color Yellow Urine Clarity Clear Urine pH 6.0 Urine Specific [place] >=1.030 Urine Protein Negative mg/dL (NEG-TRACE) Urine Glucose (UA) Negative mg/dL (NEG) Urine Ketones (Stick) Negative mg/dL (NEG) Urine Blood Negative (NEG) Urine Nitrite Negative (NEG) Urine Bilirubin Negative (NEG) Urine Urobilinogen Dipstick 0.2 mg/dL (0.2 mg/dL) Urine Leukocyte Esterase Negative (NEG) Urine RBC 1-2 /HPF (0-2) Urine WBC 1-4 /HPF (0-4) Urine Squamous Epithelial Cells Occ /LPF Urine Bacteria Few /HPF (0-FEW) Urine Mucus Mod /LPF Glucose (Fingerstick) 99 mg/dL (70-99) 80 mg/dL (70-99) White Blood Count 11.8 x10^3/uL (4.0-11.0) Red Blood Count 4.38 x10^6/uL (4.30-5.70) Hemoglobin 12.6 g/dL (13.0-17.5) Hematocrit 38.5 % (39.0-53.0) Mean Corpuscular Volume 88 fL (79-100) Mean Corpuscular Hemoglobin 29 pg (25-35) Mean Corpuscular Hemoglobin Concent 33 g/dL (31-37) Red Cell Distribution Width 14.8 % (11.5-14.5) Platelet Count 191 x10^3/uL (140-400) Neutrophils (%) (Auto) 68 % (31-73) Lymphocytes (%) (Auto) 18 % (24-48) Monocytes (%) (Auto) 12 % (0-9) Eosinophils (%) (Auto) 2 % (0-3) Basophils (%) (Auto) 0 % (0-3) Neutrophils # (Auto) 8.0 x10^3uL (1.8-7.7) Lymphocytes # (Auto) 2.1 x10^3/uL (1.0-4.8) Monocytes # (Auto) 1.4 x10^3/uL (0.0-1.1) Eosinophils # (Auto) 0.3 x10^3/uL (0.0-0.7) Basophils # (Auto) 0.1 x10^3/uL (0.0-0.2) Sodium Level 139 mmol/L (136-145) Potassium Level 3.8 mmol/L (3.5-5.1) Chloride Level 104 mmol/L (98-107) Carbon Dioxide Level 27 mmol/L (21-32) Anion Gap 8 (6-14) Blood Urea Nitrogen 8 mg/dL (8-26) Creatinine 0.7 mg/dL (0.7-1.3) Estimated GFR (Cockcroft-Gault) 119.4 Glucose Level 79 mg/dL (70-99) Calcium Level 8.4 mg/dL (8.5-10.1) Test 08/21/18 07:32 Glucose (Fingerstick) 89 mg/dL (70-99) Problem List Problems Medical Problems: (1) Diverticulitis Status: Acute Assessment/Plan Diverticulitis, resolving with medical treatment. No surgical plans CHARLA ANTONIO MD Aug 21, 2018 10:04
[2018-08-21 11:00] VITALS: BP 137/71
--- NOTE | 2018-08-21 14:01 | NUR ---
SW following for discharge planning. Discussed with RN, pt is from home. SW met with pt to give self pay resources. Pt advised he is working on getting insurance. Pt denied any further SW needs.
[2018-08-21 15:00] VITALS: BP 138/84
[2018-08-21] MEDS: HYDROmorphone 2 MG/ML VIAL IV PRN ×2 (15:10→20:13)
[2018-08-21] MEDS: NON FORMULARY ITEM (Lurasidone Hcl (Latuda) 1 TAB) PO SCH (16:47)
[2018-08-21 19:00] VITALS: BP_SYST 150; BP_SYST 155; BP_DIAS 55; BP_DIAS 88
[2018-08-21] MEDS: LACTOBACILLUS RHAMNOSUS GG 1 CAPSULE. PO SCH (20:05)
--- NOTE | 2018-08-21 22:15 | NUR ---
This RN cleared medication emar due to downtime. Refer to paper chart.
[2018-08-22 03:00] VITALS: BP 149/90
[2018-08-22] MEDS: INSULIN LISPRO 300 UNITS/3 ML INSULN.PEN. SQ SCH ×3 (06:23→11:49)
[2018-08-22 07:00] VITALS: BP 123/74
[2018-08-22] MEDS: DOCUSATE SODIUM 100 MG CAPSULE. PO SCH (08:19)
[2018-08-22] MEDS: LACTOBACILLUS RHAMNOSUS GG 1 CAPSULE. PO SCH (08:19)
[2018-08-22] MEDS: hydroCHLOROthiazide 25 MG TABLET PO SCH (08:19)
[2018-08-22] MEDS: NICOTINE 21MG PATCH. TD SCH ×2 (08:19→09:00)
--- NOTE | 2018-08-22 09:51 | PDOC ---
Subjective: Subjective: Denies pain. Says passing gas and stool, tolerating PO w/o issue. Thinks could go home soon. Objective: Objective: Got Dilaudid last night. Vital Signs: Vital Signs Date Time Temp Pulse Resp B/P (MAP) Pulse Ox O2 Delivery O2 Flow Rate FiO2 08/22/18 07:00 97.9 67 18 123/74 (90) 94 Room Air 97.9 Labs: Laboratory Tests Test 08/21/18 11:04 08/21/18 16:52 Glucose (Fingerstick) 105 mg/dL 96 mg/dL PE: GEN: NAD, was asleep - breakfast tray completely empty LUNGS: CTAB HEART: RRR ABD: soft, non-tender NEURO/PSYCH: A & O �3 A/P: Recurrent diverticulitis -- ?change to PO atbx and look to DC Has plans to follow-up w/ surgeon as outpt. CARLIE LILLY Aug 22, 2018 09:51
[2018-08-22] MEDS: CIPROFLOXACIN 200MG PREMIX 100 ML IV SCH (09:59)
--- NOTE | 2018-08-22 10:07 | PDOC ---
PROGRESS NOTES History of Present Illness History of Present Illness Images Images CT Abd/pelvis - 1. Sigmoid and descending colon diverticulosis with focal mid descending colon diverticulitis. 2. Punctate nonobstructing left renal stone. Indeterminate but likely a simple or minimally corticated cyst in the interpolar left kidney. Nonemergent ultrasound of the left kidney VTE Prophylaxis Ordered VTE Prophylaxis Devices: Yes VTE Pharmacological Prophylaxi: No Assessment/Plan Assessment/Plan A/P: LLQ pain - 2/2 diverticulitis, mild leukocytosis. Cipro flagyl. Consult GI and surgery REVIEWED Sepsis - meets SIRS criteria with diverticulitis, given antibiotics and fluids. F/u H/o diverticulitis - required intpt treatment in the past w/ discussion for elective colon resection. Will consult surgery Abnormal CTs - suggestive of sigmoid diverticulitis, other findings as above, renal US Smoker - nicotine patch Elevated glucose - screen for DM, sliding scale while in house FEN - NPO, ADAT PPX - scds FULL CODE Inpatient for recurrent diverticulitis, will need likely 48 hours, NO NARCOTICS TODAY Vitals Vitals Vital Signs Date Time Temp Pulse Resp B/P (MAP) Pulse Ox O2 Delivery O2 Flow Rate FiO2 08/22/18 07:00 97.9 67 18 123/74 (90) 94 Room Air 97.9 Physical Exam General: Alert, Oriented X3, Cooperative, No acute distress Heart: Regular rate, Normal S1, Normal S2, No murmurs Lungs: Clear Abdomen: Normal bowel sounds, Soft (obese, minimally tender, no guarding or peritoneal signs), No tenderness, Other (MILD LUQ TENDERNESS, NO REBOUND) Extremities: No clubbing, No cyanosis Skin: No rashes Labs LABS Laboratory Tests Test 08/21/18 11:04 08/21/18 16:52 Glucose (Fingerstick) 105 mg/dL (70-99) 96 mg/dL (70-99) Assessment and Plan Assessmemt and Plan Problems Medical Problems: (1) Diverticulitis Status: Acute Comment Review of Relevant I have reviewed the following items ani (where applicable) has been applied. Labs Laboratory Tests Test 08/20/18 10:10 08/20/18 16:35 08/20/18 20:50 08/21/18 03:25 Urine Collection Type Void Urine Color Yellow Urine Clarity Clear Urine pH 6.0 Urine Specific [place] >=1.030 Urine Protein Negative mg/dL (NEG-TRACE) Urine Glucose (UA) Negative mg/dL (NEG) Urine Ketones (Stick) Negative mg/dL (NEG) Urine Blood Negative (NEG) Urine Nitrite Negative (NEG) Urine Bilirubin Negative (NEG) Urine Urobilinogen Dipstick 0.2 mg/dL (0.2 mg/dL) Urine Leukocyte Esterase Negative (NEG) Urine RBC 1-2 /HPF (0-2) Urine WBC 1-4 /HPF (0-4) Urine Squamous Epithelial Cells Occ /LPF Urine Bacteria Few /HPF (0-FEW) Urine Mucus Mod /LPF Glucose (Fingerstick) 99 mg/dL (70-99) 80 mg/dL (70-99) White Blood Count 11.8 x10^3/uL (4.0-11.0) Red Blood Count 4.38 x10^6/uL (4.30-5.70) Hemoglobin 12.6 g/dL (13.0-17.5) Hematocrit 38.5 % (39.0-53.0) Mean Corpuscular Volume 88 fL (79-100) Mean Corpuscular Hemoglobin 29 pg (25-35) Mean Corpuscular Hemoglobin Concent 33 g/dL (31-37) Red Cell Distribution Width 14.8 % (11.5-14.5) Platelet Count 191 x10^3/uL (140-400) Neutrophils (%) (Auto) 68 % (31-73) Lymphocytes (%) (Auto) 18 % (24-48) Monocytes (%) (Auto) 12 % (0-9) Eosinophils (%) (Auto) 2 % (0-3) Basophils (%) (Auto) 0 % (0-3) Neutrophils # (Auto) 8.0 x10^3uL (1.8-7.7) Lymphocytes # (Auto) 2.1 x10^3/uL (1.0-4.8) Monocytes # (Auto) 1.4 x10^3/uL (0.0-1.1) Eosinophils # (Auto) 0.3 x10^3/uL (0.0-0.7) Basophils # (Auto) 0.1 x10^3/uL (0.0-0.2) Sodium Level 139 mmol/L (136-145) Potassium Level 3.8 mmol/L (3.5-5.1) Chloride Level 104 mmol/L (98-107) Carbon Dioxide Level 27 mmol/L (21-32) Anion Gap 8 (6-14) Blood Urea Nitrogen 8 mg/dL (8-26) Creatinine 0.7 mg/dL (0.7-1.3) Estimated GFR (Cockcroft-Gault) 119.4 Glucose Level 79 mg/dL (70-99) Calcium Level 8.4 mg/dL (8.5-10.1) Test 08/21/18 07:32 08/21/18 11:04 08/21/18 16:52 Glucose (Fingerstick) 89 mg/dL (70-99) 105 mg/dL (70-99) 96 mg/dL (70-99) Laboratory Tests Test 08/21/18 11:04 08/21/18 16:52 Glucose (Fingerstick) 105 mg/dL (70-99) 96 mg/dL (70-99) Medications Current Medications Sodium Chloride 1,000 ml @ 1,000 mls/ hr 1X ONCE IV Last administered on 08/20at 09:28; Start 08/20/18 at 09:30; Stop 08/20/18 at 10:29; Status DC Ondansetron HCl (Zofran) 4 mg 1X ONCE IV Last administered on 08/20/18at 09:28 ; Start 08/20/18 at 09:30; Stop 08/20/18 at 09:31; Status DC Ketorolac Tromethamine (Toradol 30mg Vial) 30 mg 1X ONCE IV Last administered on 08/20/18at 09:28; Start 08/20/18 at 09:30; Stop 08/20/18 at 09:31; Status DC Iohexol (Omnipaque 300 Mg/ml) 75 ml 1X ONCE IV ; Start 08/20/18 at 10:30; Stop 08/20/18 at 10:31; Status DC Iohexol (Omnipaque 240 Mg/ml) 50 ml 1X ONCE PO ; Start 08/20/18 at 10:30; Stop 08/20/18 at 10:31; Status DC Info (CONTRAST GIVEN -- Rx MONITORING) 1 each PRN DAILY PRN MC SEE COMMENTS; Start 08/20/18 at 10:15; Stop 08/22/18 at 10:14 Fentanyl Citrate (Fentanyl 2ml Vial) 50 mcg PRN Q1HR PRN IV PAIN Last administered on 08/20/18 12:55; Start 08/20/18 at 11:00; Stop 08/20/18 at 13:56 ; Status DC Sodium Chloride 1,000 ml @ 125 mls/hr Q8H IV Last administered on 08/21/18 05 :00; Start 08/20/18 at 12:00; Stop 08/21/18 at 11:59; Status DC Metronidazole 100 ml @ 100 mls/hr Q12HR IV Last administered on 08/22/18 08: 18; Start 08/20/18 at 11:00 Ciprofloxacin/ Dextrose 200 ml @ 200 mls/hr 1X ONCE IV Last administered on 12:50; Start 08/20/18 at 11:00; Stop 08/20/18 at 11:59; Status DC Ketorolac Tromethamine (Toradol 30mg Vial) 30 mg PRN Q6HRS PRN IV MILD PAIN Last administered on 08/21/18 08:35; Start 08/20/18 at 14:00; Stop 08/25/18 at 13:59 Hydromorphone HCl (Dilaudid) 0.5 mg PRN Q4HRS PRN IV MODERATE-SEVERE PAIN Last administered on 08/20/18 20:57; Start 08/20/18 at 14:00; Stop 08/20/18 at 21:02 ; Status DC Ondansetron HCl (Zofran) 4 mg PRN Q6HRS PRN IV NAUSEA/VOMITING; Start 08/20/18 at 14:00 Acetaminophen/ Hydrocodone Bitart (Lortab 5/325) 1 tab PRN Q6HRS PRN PO PAIN Last administered on 08/20/18 15:25; Start 08/20/18 at 14:00 Aspirin (Tia Aspirin) 325 mg PRN TID PRN PO HEADACHE; Start 08/20/18 at 14:00 Docusate Sodium (Colace) 100 mg DAILY PO Last administered on 08/22/18 08:19; Start 08/20/18 at 15:00 Hydrochlorothiazide (Hydrodiuril) 25 mg DAILY PO Last administered on 08:19; Start 08/20/18 at 15:00 Non-Formulary Medication (Lurasidone Hcl (Latuda)) 1 tab DAILYWSUP PO ; Start at 17:00; Stop 08/21/18 at 17:25; Status DC Zolpidem Tartrate (Ambien) 5 mg PRN QHS PRN PO INSOMNIA, MAY REPEAT X1; Start 08/20/18 at 20:00 Lorazepam (Ativan) 0.5 mg PRN Q8HRS PRN PO ANXIETY / AGITATION; Start 08/20/18 at 14:00 Insulin Human Lispro (HumaLOG) 0-5 UNITS Q6HRS SQ ; Start 08/20/18 at 18:00 Dextrose (Dextrose 50%-Water Syringe) 12.5 gm PRN Q15MIN PRN IV SEE COMMENTS; Start 08/20/18 at 14:00 Ciprofloxacin/ Dextrose 100 ml @ 100 mls/hr Q12HR IV Last administered on 08/22at 09:59; Start 08/20/18 at 21:00 Nicotine (Nicoderm Cq 21mg) 1 patch DAILY TD Last administered on 08/22/18at 08: 19; Start 08/20/18 at 15:00 Potassium Chloride (Klor-Con) 40 meq 1X ONCE PO Last administered on at 15:25; Start 08/20/18 at 15:00; Stop 08/20/18 at 15:01; Status DC Morphine Sulfate (Morphine Sulfate) 2 mg PRN Q4HRS PRN IV PAIN Last administered on 08/21/18at 10:34; Start 08/20/18 at 21:00 Lactobacillus Rhamnosus (Culturelle) 1 cap BID PO Last administered on at 08:19; Start 08/21/18 at 21:00 Hydromorphone HCl (Dilaudid) 0.5 mg PRN Q4HRS PRN IV MODERATE-SEVERE PAIN Last administered on 08/21/18at 20:13; Start 08/21/18 at 15:15 Non-Formulary Medication (Lurasidone Hcl (Latuda)) 1 tab DAILYWSUP PO Last administered on 08/21/18at 18:06; Start 08/21/18 at 18:00 Active Scripts Active Colace (Docusate Sodium) 100 Mg Capsule 100 Mg PO DAILY 30 Days [place] 5-325 Tablet (Acetaminophen/Hydrocodone Bitart) 1 Each Tablet 1-2 Each PO PRN Q6HRS PRN MDD 4 as needed for pain Hydrochlorothiazide Tablet (Hydrochlorothiazide) 25 Mg Tablet 1 Tab PO DAILY Aspirin 325 Mg Tablet 1 Tab PO TID PRN Reported Latuda (Lurasidone Hcl) 80 Mg Tablet 1 Tab PO DAILYWSUP Diazepam 10 Mg Tablet 10 Mg PO DAILY PRN Zolpidem Tartrate 10 Mg Tablet 10 Mg PO PRN QHS PRN Vitals/I & O Vital Sign - Last 24 Hours 08/21/18 08/21/18 08/21/18 08/21/18 10:34 11:00 11:15 15:00 Temp 98.0 98.4 98.0 98.4 Pulse 77 66 Resp 20 18 B/P (MAP) 137/71 (93) 138/84 (102) Pulse Ox 95 95 95 95 O2 Delivery Room Air Room Air Room Air Room Air 08/21/18 08/21/18 08/21/18 08/21/18 15:10 19:00 20:00 20:13 Temp 98.4 98.4 Pulse 75 Resp 18 B/P (MAP) 155/88 (110) Pulse Ox 95 97 95 O2 Delivery Room Air Room Air Room Air Room Air 08/21/18 08/22/18 08/22/18 20:45 03:00 07:00 Temp 98.3 97.9 98.3 97.9 Pulse 74 67 Resp 18 18 B/P (MAP) 149/90 (109) 123/74 (90) Pulse Ox 95 92 94 O2 Delivery Room Air Room Air Room Air Intake and Output 08/21/18 08/21/18 08/22/18 15:00 23:00 07:00 Intake Total 250 ml Output Total 600 ml 500 ml Balance -600 ml -250 ml CHARLA ROJAS MD Aug 22, 2018 10:07
--- NOTE | 2018-08-22 10:57 | PDOC3 ---
Discharge Summary Date of Admission: Aug 20, 2018 Date of Discharge: Aug 22, 2018 Follow-Up: 3-5 days Admitting Diagnosis comment: Images Images CT Abd/pelvis - 1. Sigmoid and descending colon diverticulosis with focal mid descending colon diverticulitis. 2. Punctate nonobstructing left renal stone. Indeterminate but likely a simple or minimally corticated cyst in the interpolar left kidney. Nonemergent ultrasound of the left kidney VTE Prophylaxis Ordered VTE Prophylaxis Devices: Yes VTE Pharmacological Prophylaxi: No DISCHARGE DIAGNOSIS Assessment/Plan A/P: LLQ pain - 2/2 diverticulitis, mild leukocytosis. Cipro, flagyl. Consult GI and surgery REVIEWED Sepsis - meets SIRS criteria with diverticulitis, given antibiotics and fluids. F/u H/o diverticulitis - required intpt treatment in the past w/ discussion for elective colon resection. Abnormal CTs - suggestive of sigmoid diverticulitis, other findings as above, renal US Smoker - nicotine patch Elevated glucose - screen for DM, sliding scale while in house FEN - NPO, ADAT PPX - scds FULL CODE Inpatient for recurrent diverticulitis, will need likely 48 hours, NO NARCOTICS TODAY, TO SEE DR BON ZIEGLER, HIS OFFICE Vitals Vitals Vital Signs Date Time Temp Pulse Resp B/P (MAP) Pulse Ox O2 Delivery O2 Flow Rate FiO2 08/22/18 07:00 97.9 67 18 123/74 (90) 94 Room Air 97.9 Physical Exam General: Alert, Oriented X3, Cooperative, No acute distress Heart: Regular rate, Normal S1, Normal S2, No murmurs Lungs: Clear Abdomen: Normal bowel sounds, Soft (obese,, no guarding or peritoneal signs), No tenderness, Other (MILD LUQ TENDERNESS, NO REBOUND) Extremities: No clubbing, No cyanosis Skin: No rashes FINAL DIAGNOSIS Problems Medical Problems: (1) Diverticulitis Status: Acute Brief Hospital Course Mr. Broussard is a 48 old [sex] who presented with [ACUTE DIVERTICULITIS ] CONDITION AT DISCHARGE: Improved Discharge Medications Current Medications Sodium Chloride 1,000 ml @ 1,000 mls/ hr 1X ONCE IV Last administered on 08/20at 09:28; Start 08/20/18 at 09:30; Stop 08/20/18 at 10:29; Status DC Ondansetron HCl (Zofran) 4 mg 1X ONCE IV Last administered on 08/20/18at 09:28 ; Start 08/20/18 at 09:30; Stop 08/20/18 at 09:31; Status DC Ketorolac Tromethamine (Toradol 30mg Vial) 30 mg 1X ONCE IV Last administered on 08/20/18at 09:28; Start 08/20/18 at 09:30; Stop 08/20/18 at 09:31; Status DC Iohexol (Omnipaque 300 Mg/ml) 75 ml 1X ONCE IV ; Start 08/20/18 at 10:30; Stop 08/20/18 at 10:31; Status DC Iohexol (Omnipaque 240 Mg/ml) 50 ml 1X ONCE PO ; Start 08/20/18 at 10:30; Stop 08/20/18 at 10:31; Status DC Info (CONTRAST GIVEN -- Rx MONITORING) 1 each PRN DAILY PRN MC SEE COMMENTS; Start 08/20/18 at 10:15; Stop 08/22/18 at 10:14; Status DC Fentanyl Citrate (Fentanyl 2ml Vial) 50 mcg PRN Q1HR PRN IV PAIN Last administered on 08/20/18at 12:55; Start 08/20/18 at 11:00; Stop 08/20/18 at 13:56 ; Status DC Sodium Chloride 1,000 ml @ 125 mls/hr Q8H IV Last administered on 08/21/18at 05 :00; Start 08/20/18 at 12:00; Stop 08/21/18 at 11:59; Status DC Metronidazole 100 ml @ 100 mls/hr Q12HR IV Last administered on 08/22/18at 08: 18; Start 08/20/18 at 11:00 Ciprofloxacin/ Dextrose 200 ml @ 200 mls/hr 1X ONCE IV Last administered on at 12:50; Start 08/20/18 at 11:00; Stop 08/20/18 at 11:59; Status DC Ketorolac Tromethamine (Toradol 30mg Vial) 30 mg PRN Q6HRS PRN IV MILD PAIN Last administered on 08/21/18at 08:35; Start 08/20/18 at 14:00; Stop 08/25/18 at 13:59 Hydromorphone HCl (Dilaudid) 0.5 mg PRN Q4HRS PRN IV MODERATE-SEVERE PAIN Last administered on 08/20/18at 20:57; Start 08/20/18 at 14:00; Stop 08/20/18 at 21:02 ; Status DC Ondansetron HCl (Zofran) 4 mg PRN Q6HRS PRN IV NAUSEA/VOMITING; Start 08/20/18 at 14:00 Acetaminophen/ Hydrocodone Bitart (Lortab 5/325) 1 tab PRN Q6HRS PRN PO PAIN Last administered on 08/20/18at 15:25; Start 08/20/18 at 14:00 Aspirin (Tia Aspirin) 325 mg PRN TID PRN PO HEADACHE; Start 08/20/18 at 14:00 Docusate Sodium (Colace) 100 mg DAILY PO Last administered on 08/22/18at 08:19; Start 08/20/18 at 15:00 Hydrochlorothiazide (Hydrodiuril) 25 mg DAILY PO Last administered on at 08:19; Start 08/20/18 at 15:00 Non-Formulary Medication (Lurasidone Hcl (Latuda)) 1 tab DAILYWSUP PO ; Start at 17:00; Stop 08/21/18 at 17:25; Status DC Zolpidem Tartrate (Ambien) 5 mg PRN QHS PRN PO INSOMNIA, MAY REPEAT X1; Start 08/20/18 at 20:00 Lorazepam (Ativan) 0.5 mg PRN Q8HRS PRN PO ANXIETY / AGITATION; Start 08/20/18 at 14:00 Insulin Human Lispro (HumaLOG) 0-5 UNITS Q6HRS SQ ; Start 08/20/18 at 18:00 Dextrose (Dextrose 50%-Water Syringe) 12.5 gm PRN Q15MIN PRN IV SEE COMMENTS; Start 08/20/18 at 14:00 Ciprofloxacin/ Dextrose 100 ml @ 100 mls/hr Q12HR IV Last administered on 08/22at 09:59; Start 08/20/18 at 21:00 Nicotine (Nicoderm Cq 21mg) 1 patch DAILY TD Last administered on 08/22/18at 08: 19; Start 08/20/18 at 15:00 Potassium Chloride (Klor-Con) 40 meq 1X ONCE PO Last administered on at 15:25; Start 08/20/18 at 15:00; Stop 08/20/18 at 15:01; Status DC Morphine Sulfate (Morphine Sulfate) 2 mg PRN Q4HRS PRN IV PAIN Last administered on 08/21/18at 10:34; Start 08/20/18 at 21:00 Lactobacillus Rhamnosus (Culturelle) 1 cap BID PO Last administered on at 08:19; Start 08/21/18 at 21:00 Hydromorphone HCl (Dilaudid) 0.5 mg PRN Q4HRS PRN IV MODERATE-SEVERE PAIN Last administered on 08/21/18at 20:13; Start 08/21/18 at 15:15 Non-Formulary Medication (Lurasidone Hcl (Latuda)) 1 tab DAILYWSUP PO Last administered on 08/21/18at 18:06; Start 08/21/18 at 18:00 Active Scripts Active Colace (Docusate Sodium) 100 Mg Capsule 100 Mg PO DAILY 30 Days [place] 5-325 Tablet (Acetaminophen/Hydrocodone Bitart) 1 Each Tablet 1-2 Each PO PRN Q6HRS PRN MDD 4 as needed for pain Hydrochlorothiazide Tablet (Hydrochlorothiazide) 25 Mg Tablet 1 Tab PO DAILY Aspirin 325 Mg Tablet 1 Tab PO TID PRN Reported Latuda (Lurasidone Hcl) 80 Mg Tablet 1 Tab PO DAILYWSUP Diazepam 10 Mg Tablet 10 Mg PO DAILY PRN Zolpidem Tartrate 10 Mg Tablet 10 Mg PO PRN QHS PRN Vital Signs Vital Signs Date Time Temp Pulse Resp B/P (MAP) Pulse Ox O2 Delivery O2 Flow Rate FiO2 08/22/18 07:30 Room Air 08/22/18 07:00 97.9 67 18 123/74 (90) 94 97.9 Labs Laboratory Tests Test 08/20/18 16:35 08/20/18 20:50 08/21/18 03:25 08/21/18 07:32 Glucose (Fingerstick) 99 mg/dL (70-99) 80 mg/dL (70-99) 89 mg/dL (70-99) White Blood Count 11.8 x10^3/uL (4.0-11.0) Red Blood Count 4.38 x10^6/uL (4.30-5.70) Hemoglobin 12.6 g/dL (13.0-17.5) Hematocrit 38.5 % (39.0-53.0) Mean Corpuscular Volume 88 fL (79-100) Mean Corpuscular Hemoglobin 29 pg (25-35) Mean Corpuscular Hemoglobin Concent 33 g/dL (31-37) Red Cell Distribution Width 14.8 % (11.5-14.5) Platelet Count 191 x10^3/uL (140-400) Neutrophils (%) (Auto) 68 % (31-73) Lymphocytes (%) (Auto) 18 % (24-48) Monocytes (%) (Auto) 12 % (0-9) Eosinophils (%) (Auto) 2 % (0-3) Basophils (%) (Auto) 0 % (0-3) Neutrophils # (Auto) 8.0 x10^3uL (1.8-7.7) Lymphocytes # (Auto) 2.1 x10^3/uL (1.0-4.8) Monocytes # (Auto) 1.4 x10^3/uL (0.0-1.1) Eosinophils # (Auto) 0.3 x10^3/uL (0.0-0.7) Basophils # (Auto) 0.1 x10^3/uL (0.0-0.2) Sodium Level 139 mmol/L (136-145) Potassium Level 3.8 mmol/L (3.5-5.1) Chloride Level 104 mmol/L (98-107) Carbon Dioxide Level 27 mmol/L (21-32) Anion Gap 8 (6-14) Blood Urea Nitrogen 8 mg/dL (8-26) Creatinine 0.7 mg/dL (0.7-1.3) Estimated GFR (Cockcroft-Gault) 119.4 Glucose Level 79 mg/dL (70-99) Calcium Level 8.4 mg/dL (8.5-10.1) Test 08/21/18 11:04 08/21/18 16:52 Glucose (Fingerstick) 105 mg/dL (70-99) 96 mg/dL (70-99) Laboratory Tests Test 08/21/18 11:04 08/21/18 16:52 Glucose (Fingerstick) 105 mg/dL (70-99) 96 mg/dL (70-99) Allergies Allergies Coded Allergies Type Severity Reaction Last Updated Verified Penicillins Allergy Intermediate 07/28/18 Yes Disposition/Orders: D/C to Home Patient Instructions D/C PLANNING 37 MIN CHARLA ROJAS MD Aug 22, 2018 10:57
[2018-08-22 11:00] VITALS: BP 139/93
[2018-08-22] MEDS ORDERED: CIPR500T94 PO (11:00)
[2018-08-22] MEDS ORDERED: METR500T PO (11:00)
--- NOTE | 2018-08-22 11:01 | DISCH ---
DISCHARGE INSTRUCTIONS Condition on Discharge Condition on Discharge: Stable Activity After Discharge Activity Instructions for Disc: No restrictions Lifting Instructions after Dis: No heavy lifting Exercise Instruction after Dis: Walk 10 min, 3 x per day Driving Instructions after Dis: Do not drive Weight Bearing Status after Di: No restrictions Diet after Discharge Diet after Discharge: Regular Liquid Texture: Thin Liquid Checks after Discharge Checks after discharge: Check blood press - daily Contacting the DR. after DC Call your doctor for: If your condition worsens Treatment/Equipment after DC Adaptive Equipment Issued: None CHARLA ROJAS MD Aug 22, 2018 11:01
--- NOTE | 2018-08-22 11:38 | PDOC ---
SURGICAL PROGRESS NOTE Subjective Doing well wants to go home Vital Signs Vital Signs Date Time Temp Pulse Resp B/P (MAP) Pulse Ox O2 Delivery O2 Flow Rate FiO2 08/22/18 07:30 Room Air 08/22/18 07:00 97.9 67 18 123/74 (90) 94 97.9 I&O Intake and Output 08/22/18 07:00 Intake Total 250 ml Output Total 1100 ml Balance -850 ml Intake Oral 250 ml Output Urine Total 1100 ml # Voids 4 PATIENT HAS A HARRIS: No General: Alert, Oriented X3, Cooperative, No acute distress Abdomen: Normal bowel sounds, Soft, No tenderness Labs Laboratory Tests Test 08/20/18 16:35 08/20/18 20:50 08/21/18 03:25 08/21/18 07:32 Glucose (Fingerstick) 99 mg/dL (70-99) 80 mg/dL (70-99) 89 mg/dL (70-99) White Blood Count 11.8 x10^3/uL (4.0-11.0) Red Blood Count 4.38 x10^6/uL (4.30-5.70) Hemoglobin 12.6 g/dL (13.0-17.5) Hematocrit 38.5 % (39.0-53.0) Mean Corpuscular Volume 88 fL (79-100) Mean Corpuscular Hemoglobin 29 pg (25-35) Mean Corpuscular Hemoglobin Concent 33 g/dL (31-37) Red Cell Distribution Width 14.8 % (11.5-14.5) Platelet Count 191 x10^3/uL (140-400) Neutrophils (%) (Auto) 68 % (31-73) Lymphocytes (%) (Auto) 18 % (24-48) Monocytes (%) (Auto) 12 % (0-9) Eosinophils (%) (Auto) 2 % (0-3) Basophils (%) (Auto) 0 % (0-3) Neutrophils # (Auto) 8.0 x10^3uL (1.8-7.7) Lymphocytes # (Auto) 2.1 x10^3/uL (1.0-4.8) Monocytes # (Auto) 1.4 x10^3/uL (0.0-1.1) Eosinophils # (Auto) 0.3 x10^3/uL (0.0-0.7) Basophils # (Auto) 0.1 x10^3/uL (0.0-0.2) Sodium Level 139 mmol/L (136-145) Potassium Level 3.8 mmol/L (3.5-5.1) Chloride Level 104 mmol/L (98-107) Carbon Dioxide Level 27 mmol/L (21-32) Anion Gap 8 (6-14) Blood Urea Nitrogen 8 mg/dL (8-26) Creatinine 0.7 mg/dL (0.7-1.3) Estimated GFR (Cockcroft-Gault) 119.4 Glucose Level 79 mg/dL (70-99) Calcium Level 8.4 mg/dL (8.5-10.1) Test 08/21/18 11:04 08/21/18 16:52 Glucose (Fingerstick) 105 mg/dL (70-99) 96 mg/dL (70-99) Laboratory Tests Test 08/21/18 16:52 Glucose (Fingerstick) 96 mg/dL (70-99) Problem List Problems Medical Problems: (1) Diverticulitis Status: Acute Assessment/Plan Diverticulitis improving Agree with D/C on oral antibiotics CHARLA ANTONIO MD Aug 22, 2018 11:38
--- NOTE | 2018-08-22 12:08 | NUR ---
SW following. Discussed with RN. Pt is discharging home with self care today. No further SW needs.
--- NOTE | 2018-08-22 13:10 | NUR ---
Pt was discharged to home at 1305 today in stable condition with all personal belongings after reviewing all pertinent information including education, medications, follow up and at home care. Pt's home medication, Latuda, was returned to him, pt was given phone number and address to follow up with Dr.Bruce Stover. Pt was escorted by staff to Radiology to picking belt operator his CT scans and to the main exit where his girlfriend drove him home.
== END 2018-08-22 13:05 | disposition home or self-care (01) | DRG 872 ==
LOC: ER 08:54 → 4 NORTH 10:46
PROVIDERS: ADMIT Internal Medicine; ATTEND Internal Medicine
DX: A41.9 Sepsis, unspecified organism (principal); K57.32 Diverticulitis of large intestine without perforation or abscess without bleeding; I10 Essential (primary) hypertension; E78.00 Pure hypercholesterolemia, unspecified; F17.210 Nicotine dependence, cigarettes, uncomplicated; R73.9 Hyperglycemia, unspecified; Z88.0 Allergy status to penicillin
CPT/HCPCS: 36415; 74177; 76775; 80048; 80053; 81001; 82150; 82962; 83036; 83690; 85025; 96361; 96374; J0744; J1170; J1815; J1885; J2270; J2405; J3010; J3490; J7030; 99285-25; G0378